=== PATIENT | female | born 1990 | race Caucasian/White ===

== ENCOUNTER 2021-11-20 12:40 | Inpatient (IN) | payer OTHER ==
[2021-11-20] MEDS ORDERED: METHYLERGONOVINE 0.2MG/ML AMP IM PRN (12:43)
[2021-11-20] MEDS ORDERED: CARBOPROST TROME 250 MCG/ML IM PRN (12:43)
[2021-11-20] MEDS ORDERED: Ringers Lactate 1,000 ML IV PRN (12:43)
[2021-11-20] MEDS ORDERED: FAMOTIDINE 20 MG/2 ML VIAL IV ONE ×2 (12:46→12:52)
--- OUTSIDE RECORDS SUMMARY | 2021-11-20 12:47 | XMS REPORT | Continuity of Care Document ---
:1990 Author Organization [facility] t Address [address] [place] [address] Care Team Providers Name Role Phone Sorin Attending Clinician Unavailable White_M Attending Clinician Unavailable Rutledge_L Attending Clinician Unavailable Alfredo_Mariangel Admitting Clinician Unavailable White_M Admitting Clinician Unavailable Rutledge_L Admitting Clinician Unavailable Payers Payer Name Policy Type Policy Number Effective Date Expiration Date [facility] [id number] CHOICE (MEDICAID REPLACEMENT - [place] - [id number] TMHP - TRADITIONAL Problems Condition Condition Condition Status Onset Resolution Last Treating Co mments Source Name Details Category Date Date Treatment Clinician Date Gastroesop Gastroesop Problem Active M [facility] hageal hageal 2-03 da reflux Reflux 00:00: Medical disease Disease 00 Group without without esophagiti Esophagiti s s 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 Social History Smoking Status Start Date Stop Date Source Heavy Tobacco Smoker [facility] Medications Ordered Filled Start Stop Current Ordering Indication Dosage Frequency Signature Comments Components Source Medication Medication Date Date Medication? Clinician (SIG) Name Name ferrous ferrous No 1 Q1D ferrous [place] [facility] gluconate gluconate gluconate da 240 mg (27 240 mg (27 240 mg (27 Medical mg iron) mg iron) mg iron) James up tablet Take tablet Take tablet 1 tablet 1 tablet Take 1 every day every day tablet by oral by oral every day route. route. by oral route. metoclopram metoclopram No metoclopra [place] josiane 10 mg josiane 10 mg mide 10 mg da tablet TAKE tablet TAKE tablet Medical 1 TABLET BY 1 TABLET BY TAKE 1 Group MOUTH THREE MOUTH THREE TABLET BY TIMES DAILY TIMES DAILY MOUTH THREE TIMES DAILY omeprazole omeprazole No omeprazole [place] 40 mg 40 mg 40 mg da capsule,del capsule,del capsule,de Medical ayed ayed layed Group release release release TAKE 1 TAKE 1 TAKE 1 CAPSULE BY CAPSULE BY CAPSULE BY MOUTH EVERY MOUTH EVERY MOUTH DAY DAY EVERY DAY Vitafol Vitafol No Vitafol [place] [facility] Ultra 29 mg Ultra 29 mg Ultra 29 da iron-1 iron-1 mg iron-1 Medica l mg-200 mg mg-200 mg mg-200 mg Group capsule capsule capsule Take 1 Take 1 Take 1 capsule capsule capsule every day every day every day by oral by oral by oral route. route. route. Vitafol-One Vitafol-One No Vitafol-On [place] 29 mg 29 mg e 29 mg da iron-1 iron-1 iron-1 Medical mg-200 mg mg-200 mg mg-200 mg Group capsule capsule capsule Take 1 Take 1 Take 1 capsule capsule capsule every day every day every day by oral by oral by oral route. route. route. Vital Signs Vital Name Observation Time Observation Value Comments Source BP Diastolic 2021-11-18 00:00:00 79 [facility] Height 2021-11-18 00:00:00 64 [in_i] [facility] BMI (Body Mass 2021-11-18 00:00:00 22.7 kg/m2 [facility] Medical Index) Group BP Systolic 2021-11-18 00:00:00 127 mm[Hg] [facility] Body Weight 2021-11-18 00:00:00 132.5 [lb_av] [facility] BP Diastolic 2021-11-11 00:00:00 69 mm[Hg] [facility] Height 2021-11-11 00:00:00 64 [in_i] [facility] BMI (Body Mass 2021-11-11 00:00:00 23.3 kg/m2 [facility] Medical Index) Group BP Systolic 2021-11-11 00:00:00 103 mm[Hg] [facility] Body Weight 2021-11-11 00:00:00 135.6 [lb_av] [facility] BP Diastolic 2021-11-04 00:00:00 71 mm[Hg] [facility] Height 2021-11-04 00:00:00 64 [in_i] [facility] BMI (Body Mass 2021-11-04 00:00:00 23.3 kg/m2 [facility] Medical Index) Group BP Systolic 2021-11-04 00:00:00 108 mm[Hg] [facility] Body Weight 2021-11-04 00:00:00 135.7 [lb_av] [facility] BP Diastolic 2021-10-27 00:00:00 68 mm[Hg] [facility] Height 2021-10-27 00:00:00 64 [in_i] [facility] BMI (Body Mass 2021-10-27 00:00:00 23.7 kg/m2 [facility] Medical Index) Group BP Systolic 2021-10-27 00:00:00 111 mm[Hg] [facility] Body Weight 2021-10-27 00:00:00 138 [lb_av] [facility] BP Diastolic 2021-10-07 00:00:00 70 mm[Hg] [facility] Height 2021-10-07 00:00:00 64 [in_i] [facility] BMI (Body Mass 2021-10-07 00:00:00 22.7 kg/m2 [facility] Medical Index) Group BP Systolic 2021-10-07 00:00:00 116 mm[Hg] [facility] Body Weight 2021-10-07 00:00:00 132 [lb_av] [facility] BP Diastolic 2021-09-10 00:00:00 68 mm[Hg] [facility] Height 2021-09-10 00:00:00 64 [in_i] [facility] BMI (Body Mass 2021-09-10 00:00:00 22.3 kg/m2 [facility] Index) Group BP Systolic 2021-09-10 00:00:00 108 mm[Hg] [facility] Body Weight 2021-09-10 00:00:00 130 [lb_av] [facility] BP Diastolic 2021-08-03 00:00:00 58 mm[Hg] [facility] Height 2021-08-03 00:00:00 64 [in_i] [facility] BMI (Body Mass 2021-08-03 00:00:00 22.1 kg/m2 [facility] Index) Group BP Systolic 2021-08-03 00:00:00 92 mm[Hg] [facility] Body Weight 2021-08-03 00:00:00 129 [lb_av] [facility] BP Diastolic 2021-07-06 00:00:00 66 mm[Hg] [facility] Height 2021-07-06 00:00:00 64 [in_i] [facility] BMI (Body Mass 2021-07-06 00:00:00 21.9 kg/m2 [facility] Index) Group BP Systolic 2021-07-06 00:00:00 110 mm[Hg] [facility] Body Weight 2021-07-06 00:00:00 127.8 [lb_av] [facility] BP Diastolic 2021-06-22 00:00:00 64 mm[Hg] [facility] Height 2021-06-22 00:00:00 64 [in_i] [facility] BMI (Body Mass 2021-06-22 00:00:00 21.9 kg/m2 [facility] Index) Group BP Systolic 2021-06-22 00:00:00 116 mm[Hg] [facility] Body Weight 2021-06-22 00:00:00 127.7 [lb_av] [facility] BP Diastolic 2020-08-25 00:00:00 92 mm[Hg] [facility] Height 2020-08-25 00:00:00 64 [in_i] [facility] BMI (Body Mass 2020-08-25 00:00:00 24.7 kg/m2 [facility] [employer] [facility] Index) Group BP Systolic 2020-08-25 00:00:00 146 mm[Hg] [facility] Body Weight 2020-08-25 00:00:00 144 [lb_av] [facility] BP Diastolic 2020-08-18 00:00:00 86 mm[Hg] [facility] Height 2020-08-18 00:00:00 64 [in_i] [facility] BMI (Body Mass 2020-08-18 00:00:00 24.6 kg/m2 [facility] [employer] [facility] Index) Group BP Systolic 2020-08-18 00:00:00 121 mm[Hg] [facility] Body Weight 2020-08-18 00:00:00 143.6 [lb_av] [facility] BP Diastolic 2020-08-11 00:00:00 70 mm[Hg] [facility] Height 2020-08-11 00:00:00 64 [in_i] [facility] BMI (Body Mass 2020-08-11 00:00:00 25.3 kg/m2 [facility] [employer] [facility] Index) Group BP Systolic 2020-08-11 00:00:00 118 mm[Hg] [facility] Body Weight 2020-08-11 00:00:00 147.6 [lb_av] [facility] BP Diastolic 2020-08-04 00:00:00 81 mm[Hg] [facility] Height 2020-08-04 00:00:00 64 [in_i] [facility] BMI (Body Mass 2020-08-04 00:00:00 25.4 [facility] BP Systolic 2020-08-04 00:00:00 135 mm[Hg] [facility] Body Weight 2020-08-04 00:00:00 148 [lb_av] [facility] BP Diastolic 2020-07-28 00:00:00 69 mm[Hg] [facility] Height 2020-07-28 00:00:00 64 [in_i] [facility] BMI (Body Mass 2020-07-28 00:00:00 25.2 kg/m2 [facility] [employer] Medical Index) Group BP Systolic 2020-07-28 00:00:00 123 mm[Hg] [facility] Body Weight 2020-07-28 00:00:00 146.6 [lb_av] [facility] Height 2020-07-15 00:00:00 64 [in_i] [facility] BMI (Body Mass 2020-07-15 00:00:00 25.2 kg/m2 [facility] [employer] Medical Index) Group Body Weight 2020-07-15 00:00:00 146.6 [lb_av] [facility] BP Diastolic 2020-06-29 00:00:00 74 mm[Hg] [facility] Height 2020-06-29 00:00:00 64 [in_i] [facility] BMI (Body Mass 2020-06-29 00:00:00 24.5 kg/m2 [facility] [employer] [facility] Index) Group BP Systolic 2020-06-29 00:00:00 134 mm[Hg] [facility] Body Weight 2020-06-29 00:00:00 142.9 [lb_av] [facility] Height 2020-05-27 00:00:00 64 [in_i] [facility] BMI (Body Mass 2020-05-27 00:00:00 23.9 kg/m2 [facility] [employer] [facility] Index) Group Body Weight 2020-05-27 00:00:00 139.4 [lb_av] [facility] BP Diastolic 2020-05-25 00:00:00 66 mm[Hg] [facility] Height 2020-05-25 00:00:00 64 [in_i] [facility] BMI (Body Mass 2020-05-25 00:00:00 24.2 kg/m2 [facility] [employer] Medical Index) Group BP Systolic 2020-05-25 00:00:00 118 mm[Hg] [facility] Body Weight 2020-05-25 00:00:00 140.9 [lb_av] [facility] BP Diastolic 2020-05-08 00:00:00 58 mm[Hg] [facility] Height 2020-05-08 00:00:00 64 [in_i] [facility] BMI (Body Mass 2020-05-08 00:00:00 23 kg/m2 [facility] wrapper [employer] Medical Index) Group BP Systolic 2020-05-08 00:00:00 116 mm[Hg] [facility] Body Weight 2020-05-08 00:00:00 134 [lb_av] [facility] BP Diastolic 2020-04-24 00:00:00 63 mm[Hg] [facility] Height 2020-04-24 00:00:00 64 [in_i] [facility] BMI (Body Mass 2020-04-24 00:00:00 22.8 kg/m2 [facility] wrapper [employer] Medical Index) Group BP Systolic 2020-04-24 00:00:00 122 mm[Hg] [facility] Body Weight 2020-04-24 00:00:00 132.8 [lb_av] [facility] Procedures Procedure Date / Time Performing Clinician Source Performed US, obstetric, limited 2021-10-27 00:00:00 [facility] ord Medical [facility] US, obstetric, limited 2021-10-07 00:00:00 [facility] ord Medical [facility] ULTRASOUND REPEAT 2021-09-10 00:00:00 [facility] US, obstetric, limited 2021-08-03 00:00:00 [facility] ULTRASOUND, 2021-07-06 00:00:00 [facility] UTERUS REAL TIME WITH Group IMAGE DOC, AND MATERNAL EVAL PLUS DETAILED ANATOMIC EXAMINATION, TRANSABDOMINAL APPROACH; SINGLE OR FIRST GESTATION US, obstetric, limited 2021-06-22 00:00:00 [facility] ord Medical Group US, obstetric, limited 2020-07-28 00:00:00 [facility] Medical [facility] US, obstetric, limited 2020-06-29 00:00:00 [facility] ULTRASOUND REPEAT 2020-05-25 00:00:00 [facility] ULTRASOUND, 2020-04-24 00:00:00 [facility] UTERUS REAL TIME WITH Group IMAGE DOC, AND MATERNAL EVAL PLUS DETAILED ANATOMIC EXAMINATION, TRANSABDOMINAL APPROACH; SINGLE OR FIRST GESTATION Plan of Care Planned Activity Planned Date Details Comments Source Diagnostic Test 2021-11-18 urinalysis, [facility] dical Pending 00:00:00 dipstick [code = Group urinalysis, dipstick] Future Appointment 2021-11-25 [facility] 10:30:[address] [place] [address] [address]; , [place] [address] Future Appointment 2021-11-25 [facility] 10:30:[address] [address]; , [place] [address] Encounters Start End Encounter Admission Attending Care Care Encounter Source Date/Time Date/Time Type Type Clinicians Facility Department ID 2021-11-18 2021-11-18 Outpatient G_Pappas MM[facility] MMG [id number] [place] 11:48:00 11:48:00 0317 [facility] 2021-11-18 2021-11-18 Miguel A GHOSH [place] - [id number] [facility] 00:00:00 00:00:00 Discovery malia Dsouza MD: [address] [place] [phone] , Ph. [phone] 2021-11-11 2021-11-11 Outpatient G_Pappas MM MM [id number] [place] 10:29:00 10:29:00 0310 [facility] 2021-11-11 2021-11-11 Miguel A GHOSH [place] - [id number] [facility] 00:00:00 00:00:00 Discovery malia Dsouza MD: [address] [place] [address] , Ph. [phone] 2021-11-04 2021-11-04 Outpatient G_Pappas MMG MM [id number] [place] 09:57:00 09:57:00 0303 [facility] 2021-11-04 2021-11-04 Miguel A GHOSH [place] - [id number] [facility] 00:00:00 00:00:00 Discovery malia Dsouza MD: [address] [place] [address] , Ph. [phone] 2021-10-27 2021-10-27 Outpatient G_Pappas MMG MM [id number] [place] 11:35:00 11:35:00 0223 [facility] 2021-10-27 2021-10-27 Kelly MM [place] - [id number] [facility] 00:00:00 00:00:00 Discovery malia Tee [facility]-: [address] [address] , Ph. [phone] 2021-10-07 2021-10-07 Outpatient G_Pappas MMG MM [id number] [place] 02:42:00 02:42:00 [facility] 2021-10-07 2021-10-07 Miguel A WHITING [place] - [id number] [facility] 00:00:00 00:00:00 Discovery malia Dsouza MD: [address] [place] [address] , Ph. [phone] 2021-09-10 2021-09-10 Outpatient G_Pappas MM MM [id number] [place] 09:34:00 09:34:00 0107 Medical Group 2021-09-10 2021-09-10 Miguel A WHITING [place] - [id number] [facility] 00:00:00 00:00:00 Discovery malia Dsouza MD: [address] [place] [address] , Ph. [phone] 2021-09-02 2021-09-02 [place] [id number] [place] 09:30:00 09:30:00 1230 [facility] 2021-08-04 2021-08-04 Outpatient G_Pappas MMG MMG [id number] [place] 12:01:00 12:01:00 1229 [facility] 2021-08-03 2021-08-03 Outpatient G_Pappas MMG MMG [id number] [place] 10:38:00 10:38:00 1130 [facility] 2021-08-03 2021-08-03 Miguel A MMG [place] - [id number] [facility] 00:00:00 00:00:00 Discovery malia Dsouza MD: [address] [address] , Ph. [phone] 2021-07-06 2021-07-06 Outpatient G_Pappas MMG MM [id number] [place] 04:16:00 04:16:00 1102 [facility] 2021-07-06 2021-07-06 Miguel A MMG [place] - [id number] [facility] 00:00:00 00:00:00 Discovery malia Dsouza MD: [address] [address] , Ph. [phone] 2021-06-22 2021-06-22 Outpatient White_M [place] MM [id number] [place] 03:19:00 03:19:00 1019 [facility] 2021-06-22 2021-06-22 Kelly MM [place] - [id number] [facility] 00:00:00 00:00:00 Discovery malia Tee [facility]-: [address] [address] , Ph. [phone] 2021-06-16 2021-06-16 Outpatient G_Pappas MMG MM [id number] [place] 03:35:00 03:35:00 1013 Medical Group 2020-09-07 2020-09-07 Outpatient G_Pappas MMG MMG [id number] [place] 03:17:00 03:17:00 0924 [facility] 2020-08-25 2020-08-25 Outpatient G_Pappas MMG MMG [id number] [place] 02:56:00 02:56:00 1222 [facility] 2020-08-25 2020-08-25 Outpatient G_Pappas MMG MMG [id number] [place] 02:56:00 02:56:00 1230 Medical Group 2020-08-25 2020-08-25 Miguel A GHOSH [place] - [id number] [facility] 00:00:00 00:00:00 Discovery malia Dsouza MD: [address] [place] [phone] , Ph. [phone] 2020-08-18 2020-08-18 Outpatient G_Pappas MMG MMG [id number] [place] 03:25:00 03:25:00 1215 [facility] 2020-08-18 2020-08-18 Outpatient G_Pappas MMG MMG [id number] [place] 03:25:00 03:25:00 1216 [facility] 2020-08-18 2020-08-18 Miguel A GHOSH [place] - [id number] [facility] 00:00:00 00:00:00 Discovery malia Dsouza MD: [address] [place] [address] , Ph. [phone] 2020-08-11 2020-08-11 Outpatient G_Pappas MMG MMG [id number] [place] 02:39:00 02:39:00 1208 [facility] 2020-08-11 2020-08-11 Outpatient G_Pappas MMG MMG [id number] [place] 02:39:00 02:39:00 1209 [facility] 2020-08-11 2020-08-11 Miguel A GHOSH [place] - [id number] [facility] 00:00:00 00:00:00 Discovery malia Dsouza MD: [address] [place] [address] , Ph. [phone] 2020-08-04 2020-08-04 Outpatient G_Pappas MMG MMG [id number] [place] 02:29:00 02:29:00 1201 [facility] 2020-08-04 2020-08-04 Outpatient G_Pappas MMG MMG [id number] [place] 02:29:00 02:29:00 1203 [facility] 2020-08-04 2020-08-04 Outpatient G_Pappas MMG MMG [id number] [place] 02:29:00 02:29:00 1207 [facility] 2020-08-04 2020-08-04 Miguel A MMG [place] - [id number] [facility] 00:00:00 00:00:00 Discovery malia Dsouza MD: [address] [address] , Ph. [phone] 2020-07-28 2020-07-28 Outpatient G_Pappas MMG MMG [id number] [place] 04:06:00 04:06:00 1124 [facility] 2020-07-28 2020-07-28 Miguel A MMG [place] - [id number] [facility] 00:00:00 00:00:00 Discovery malia Dsouza MD: [address] [address] , Ph. [phone] 2020-07-22 2020-07-22 Outpatient Rutledge_L MMG MMG [id number] [place] 02:26:00 02:26:00 1118 [facility] 2020-07-15 2020-07-15 Outpatient Rutledge_L MMG MMG [id number] [place] 05:02:00 05:02:00 1111 [facility] 2020-07-15 2020-07-15 Rhonda MMG [place] - [id number] [facility] 00:00:00 00:00:00 Juan Ramon [facility] ANDREW: [address] [place] [address] , Ph. [phone] 2020-06-30 2020-06-30 Outpatient Rutledge_L MMG MMG [id number] [place] 01:33:00 01:33:00 1110 [facility] 2020-06-29 2020-06-29 Outpatient Rutledge_L MMG MMG [id number] [place] 02:17:00 02:17:00 1026 [facility] 2020-06-29 2020-06-29 Outpatient Rutledge_L MMG MMG [id number] [place] 02:17:00 02:17:00 [facility] 2020-06-29 2020-06-29 Rhonda MM [place] - [id number] [facility] 00:00:00 00:00:00 Juan [facility]on [facility] MD: [address] [place] [address] , Ph. [phone] 2020-06-26 2020-06-26 Outpatient G_Pappas MMG MM [id number] [place] 03:40:00 03:40:00 1023 [facility] 2020-05-27 2020-05-27 Outpatient G_Pappas MMG MMG [id number] [place] 03:53:00 03:53:00 0923 [facility] 2020-05-27 2020-05-27 Miguel A MM [place] - [id number] [facility] 00:00:00 00:00:00 Discovery malia Dsouza MD: [address] [place] [address] , Ph. [phone] 2020-05-25 2020-05-25 Outpatient G_Pappas MMG MMG [id number] [place] 09:33:00 09:33:00 0921 [facility] 2020-05-25 2020-05-25 Miguel A WHITING [place] - [id number] [facility] 00:00:00 00:00:00 Discovery malia Dsouza MD: [address] [place] [address] , Ph. [phone] 2020-05-09 2020-05-09 Outpatient G_Pappas MMG MMG [id number] [place] 11:09:00 11:09:00 09 da [facility] 2020-05-08 2020-05-08 Outpatient G_Pappas MMG MMG [id number] [place] 03:38:00 03:38:00 0904 [facility] 2020-05-08 2020-05-08 Miguel A GHOSH [place] - [id number] M [facility] 00:00:00 00:00:00 Discovery malia Dsouza MD: [address] [place] [address], [place] [address] , Ph. [phone] 2020-04-26 2020-04-26 [facility] [id number] [place] 03:18:00 03:18:00 0823 [facility] 2020-04-24 2020-04-24 Outpatient G_Pappas MMG [facility] [id number] [place] 03:37:00 03:37:00 0821 [facility] 2020-04-24 2020-04-24 Miguel A MMG [place] - [id number] [facility] 00:00:00 00:00:00 Discovery malia Dsouza MD: [address] [place] [address] , Ph. [phone] 2020-04-13 2020-04-13 [facility] [id number] [place] 01:38:00 01:38:00 0810 [facility] 2020-04-13 2020-04-13 Outpatient G_Pappas MMG [facility] [id number] [place] 01:38:00 01:38:00 0820 [facility] Results Test Description Test Time Test Comments Results Result Comments Source Urinalysis macro (dipstick) panel - Urine 2021-11-18 11:18:0 0 Test Item Value Reference Range Interpretation Comme nts Leukocytes (test code = Leukocytes) Trace Nitrite (test code = Nitrite) negative Urobilinogen (test code = Urobilinogen) .2 Protein (test code = Protein) Negative pH (test code = pH) 7.0 Blood (test code = Blood) Negative Specific [place] (test code = Specific [place]) 1.010 Ketone (test code = Ketone) Negative Bilirubin (test code = Bilirubin) Negative Glucose (test code = Glucose) Negative Appearance (test code = Appearance) Clear Color (test code = Color) Yellow [facility] RNA [Presence] in Respiratory specimen by JORGITO with probe [id number] 10:24:[id number] Medical GroupUrinalysis macro (dipstick) panel - [id number] 10:01:29 Test Item Value Reference Range Interpretation Comments Leukocytes (test code = Leukocytes) Moderate Nitrite (test code = Nitrite) negative Urobilinogen (test code = .2 Urobilinogen) Protein (test code = Protein) Negative pH (test code = pH) 6.0 Blood (test code = Blood) Negative Specific [place] (test code = 1.010 Specific [place]) Ketone (test code = Ketone) Negative Bilirubin (test code = Bilirubin) Negative Glucose (test code = Glucose) Negative Appearance (test code = Appearance) Clear Color (test code = Color) [facility] - [id number] 10:01:29 Test Item Value Reference Range Interpretation Comments Leukocytes (test code = Leukocytes) Moderate Nitrite (test code = Nitrite) negative Urobilinogen (test code = .2 Urobilinogen) Protein (test code = Protein) Negative pH (test code = pH) 6.0 Blood (test code = Blood) Negative Specific [place] (test code = 1.010 Specific [place]) Ketone (test code = Ketone) Negative Bilirubin (test code = Bilirubin) Negative Glucose (test code = Glucose) Negative Appearance (test code = Appearance) Clear Color (test code = Color) [facility] panel - [id number] 09:16:40 Test Item Value Reference Range Interpretation Comments Leukocytes (test code = Leukocytes) Trace Nitrite (test code = Nitrite) negative Urobilinogen (test code = .2 Urobilinogen) Protein (test code = Protein) Negative pH (test code = pH) 6.5 Blood (test code = Blood) Negative Specific [place] (test code = 1.010 Specific [place]) Ketone (test code = Ketone) Negative Bilirubin (test code = Bilirubin) Negative Glucose (test code = Glucose) Negative Appearance (test code = Appearance) Clear Color (test code = Color) [facility] ([facility]) panel - [id number] 09:16:40 Test Item Value Reference Range Interpretation Comments Leukocytes (test code = Leukocytes) Trace Nitrite (test code = Nitrite) negative Urobilinogen (test code = .2 Urobilinogen) Protein (test code = Protein) Negative pH (test code = pH) 6.5 Blood (test code = Blood) Negative Specific [place] (test code = 1.010 Specific [place]) Ketone (test code = Ketone) Negative Bilirubin (test code = Bilirubin) Negative Glucose (test code = Glucose) Negative Appearance (test code = Appearance) Clear Color (test code = Color) Yellow [facility] Group[facility] (dipstick) panel - [id number] 09:16:40 Test Item Value Reference Range Interpretation Comments Leukocytes (test code = Leukocytes) Trace Nitrite (test code = Nitrite) negative Urobilinogen (test code = .2 Urobilinogen) Protein (test code = Protein) Negative pH (test code = pH) 6.5 Blood (test code = Blood) Negative Specific [place] (test code = 1.010 Specific [place]) Ketone (test code = Ketone) Negative Bilirubin (test code = Bilirubin) Negative Glucose (test code = Glucose) Negative Appearance (test code = Appearance) Clear Color (test code = Color) Yellow [facility] Groupculture, vaginal/rectal, streptococcus group [id number] 00:00:00 Test Item Value Reference Range Interpretation Comments group B strep (test code = group B negative strep) [facility] [facility] Groupculture, vaginal/rectal, streptococcus group [id number] 00:00:00 Test Item Value Reference Range Interpretation Comments group B strep (test code = group B negative strep) [facility]/rectal, streptococcus group [id number] 00:00:00 Test Item Value Reference Range Interpretation Comments group B strep (test code = group B negative strep) [facility] GroupUrinalysis macro (dipstick) panel - [id number] 11:03:10 Test Item Value Reference Range Interpretation Comments Leukocytes (test code = Leukocytes) Trace Nitrite (test code = Nitrite) negative Urobilinogen (test code = .2 Urobilinogen) Protein (test code = Protein) Negative pH (test code = pH) 7.0 Blood (test code = Blood) Negative Specific [place] (test code = 1.020 Specific [place]) Ketone (test code = Ketone) Negative Bilirubin (test code = Bilirubin) Negative Glucose (test code = Glucose) Negative Appearance (test code = Appearance) Clear Color (test code = Color) Yellow [facility] GroupUrinalysis macro (dipstick) panel - [id number] 11:03:10 Test Item Value Reference Range Interpretation Comments Leukocytes (test code = Leukocytes) Trace Nitrite (test code = Nitrite) negative Urobilinogen (test code = .2 Urobilinogen) Protein (test code = Protein) Negative pH (test code = pH) 7.0 Blood (test code = Blood) Negative Specific [place] (test code = 1.020 Specific [place]) Ketone (test code = Ketone) Negative Bilirubin (test code = Bilirubin) Negative Glucose (test code = Glucose) Negative Appearance (test code = Appearance) Clear Color (test code = Color) Yellow [facility] - [id number] 11:03:10 Test Item Value Reference Range Interpretation Comments Leukocytes (test code = Leukocytes) Trace Nitrite (test code = Nitrite) negative Urobilinogen (test code = .2 Urobilinogen) Protein (test code = Protein) Negative pH (test code = pH) 7.0 Blood (test code = Blood) Negative Specific [place] (test code = 1.020 Specific [place]) Ketone (test code = Ketone) Negative Bilirubin (test code = Bilirubin) Negative Glucose (test code = Glucose) Negative Appearance (test code = Appearance) Clear Color (test code = Color) Yellow [facility] panel - [id number] 11:03:10 Test Item Value Reference Range Interpretation Comments Leukocytes (test code = Leukocytes) Trace Nitrite (test code = Nitrite) negative Urobilinogen (test code = .2 Urobilinogen) Protein (test code = Protein) Negative pH (test code = pH) 7.0 Blood (test code = Blood) Negative Specific [place] (test code = 1.020 Specific [place]) Ketone (test code = Ketone) Negative Bilirubin (test code = Bilirubin) Negative Glucose (test code = Glucose) Negative Appearance (test code = Appearance) Clear Color (test code = Color) Yellow [facility] (dipstick) panel - [id number] 14:10:03 Test Item Value Reference Range Interpretation Comments Leukocytes (test code = Leukocytes) Trace Nitrite (test code = Nitrite) negative Urobilinogen (test code = .2 Urobilinogen) Protein (test code = Protein) Negative pH (test code = pH) 6.5 Blood (test code = Blood) Negative Specific [place] (test code = 1.005 Specific [place]) Ketone (test code = Ketone) Negative Bilirubin (test code = Bilirubin) Negative Glucose (test code = Glucose) Negative Appearance (test code = Appearance) Clear Color (test code = Color) Yellow [facility] GroupUrinalysis macro (dipstick) panel - [id number] 14:10:03 Test Item Value Reference Range Interpretation Comments Leukocytes (test code = Leukocytes) Trace Nitrite (test code = Nitrite) negative Urobilinogen (test code = .2 Urobilinogen) Protein (test code = Protein) Negative pH (test code = pH) 6.5 Blood (test code = Blood) Negative Specific [place] (test code = 1.005 Specific [place]) Ketone (test code = Ketone) Negative Bilirubin (test code = Bilirubin) Negative Glucose (test code = Glucose) Negative Appearance (test code = Appearance) Clear Color (test code = Color) Yellow [facility] (dipstick) panel - [id number] 14:10:03 Test Item Value Reference Range Interpretation Comments Leukocytes (test code = Leukocytes) Trace Nitrite (test code = Nitrite) negative Urobilinogen (test code = .2 Urobilinogen) Protein (test code = Protein) Negative pH (test code = pH) 6.5 Blood (test code = Blood) Negative Specific [place] (test code = 1.005 Specific [place]) Ketone (test code = Ketone) Negative Bilirubin (test code = Bilirubin) Negative Glucose (test code = Glucose) Negative Appearance (test code = Appearance) Clear Color (test code = Color) Yellow [facility] GroupGlucose [Mass/volume] in Serum or Plasma --1 hour post dose [id number] 09:43:00 Test Item Value Reference Range Interpretation Comments Results (test code = Results) 119 [facility] GroupGlucose [Mass/volume] in Serum or Plasma --1 hour post dose [id number] 09:43:00 Test Item Value Reference Range Interpretation Comments Results (test code = Results) 119 [facility] GroupUrinalysis macro (dipstick) panel - [id number] 08:43:51 Test Item Value Reference Range Interpretation Comments Leukocytes (test code = Leukocytes) Trace Nitrite (test code = Nitrite) negative Urobilinogen (test code = .2 Urobilinogen) Protein (test code = Protein) Negative pH (test code = pH) 6.5 Blood (test code = Blood) Negative Specific [place] (test code = 1.010 Specific [place]) Ketone (test code = Ketone) Negative Bilirubin (test code = Bilirubin) Negative Glucose (test code = Glucose) Negative Appearance (test code = Appearance) Clear Color (test code = Color) Yellow [facility] (dipstick) panel - [id number] 08:43:51 Test Item Value Reference Range Interpretation Comments Leukocytes (test code = Leukocytes) Trace Nitrite (test code = Nitrite) negative Urobilinogen (test code = .2 Urobilinogen) Protein (test code = Protein) Negative pH (test code = pH) 6.5 Blood (test code = Blood) Negative Specific [place] (test code = 1.010 Specific [place]) Ketone (test code = Ketone) Negative Bilirubin (test code = Bilirubin) Negative Glucose (test code = Glucose) Negative Appearance (test code = Appearance) Clear Color (test code = Color) [facility] - [id number] 08:26:00 Test Item Value Reference Range Interpretation Comments white blood count (test code = 16.0 K/uL 4.0-11.5 white blood count) red blood count (test code = red 3.62 M/uL 3.80-5.20 L blood count) hemoglobin (test code = 11.1 g/dL 10.5-15.7 hemoglobin) hematocrit (test code = 34.5 % 34.0-50.0 hematocrit) MCV [Entitic volume] (test code = 95.3 fL 86-100 52591-3) mean corpuscular hemoglobin (test 30.7 pg 26.2-33.4 code = mean corpuscular hemoglobin) mean corpuscular HGB conc (test 32.2 g/dL 30-34 code = mean corpuscular HGB conc) red cell distribution width (test 13.2 % 12.0-15.5 code = red cell distribution width) platelet count (test code = 269 K/uL 165-450 platelet count) mean platelet volume (test code = 12.1 fL 9.4-12.6 mean platelet volume) Segmented neutrophils/100 65.4 % 44.4-80.1 leukocytes in Blood (test code = 39122-3) Immature granulocytes [#/volume] 0.4 K/uL 0.0-0.03 H in Blood (test code = 93797-9) lymphocyte% (test code = 24.5 % 10.0-50.0 lymphocyte%) mono % (test code = mono %) 5.3 % 3.6-12.0 eos % (test code = eos %) 1.8 % 0.0-5.4 Basophils/100 leukocytes in 0.4 % 0.1-1.2 Unspecified specimen (test code = 95630-9) Band form neutrophils [#/volume] 10.50 K/uL 1.56-6.13 H in Blood (test code = 66335-1) Lymphocytes [#/volume] in 3.9 K/uL 1.18-3.74 H Unspecified specimen by Automated count (test code = 79485-7) mono # (test code = mono #) 0.85 K/uL 0.24-0.86 eos # (test code = eos #) 0.29 K/uL 0.04-0.36 basophil # (test code = basophil 0.06 K/uL 0.01-0.08 #) NRBC% (test code = NRBC%) 0 /100 WBC 0-0.2 NRBC# (test code = NRBC#) 0 K/uL [facility] [Presence] in Serum or Plasma 2021-09-10 08:26:00 Test Item Value Reference Range Interpretation Comments Blood group antibody screen negative [Presence] in Serum or Plasma (test code = 890-4) [facility] Ab [Presence] in [id number] 00:00:00HIV P24 AgHIV-1/2 [facility]Reagin [facility] [Presence] in Serum by RPR 2021-09-10 00:00:00 Test Item Value Reference Range Interpretation Comments Reagin Ab [Presence] in Serum by nonreactive nonreactive RPR (test code = 48518-0) [facility] macro (dipstick) panel - [id number] 10:36:58 Test Item Value Reference Range Interpretation Comments Leukocytes (test code = Leukocytes) Small Nitrite (test code = Nitrite) negative Urobilinogen (test code = .2 Urobilinogen) Protein (test code = Protein) Negative pH (test code = pH) 6.5 Blood (test code = Blood) Negative Specific [place] (test code = 1.005 Specific [place]) Ketone (test code = Ketone) Negative Bilirubin (test code = Bilirubin) Negative Glucose (test code = Glucose) Negative Appearance (test code = Appearance) Clear Color (test code = Color) Yellow [facility]inalysis macro (dipstick) panel - [id number] 15:57:14 Test Item Value Reference Range Interpretation Comments Leukocytes (test code = Leukocytes) Negative Nitrite (test code = Nitrite) negative Urobilinogen (test code = .2 Urobilinogen) Protein (test code = Protein) Negative pH (test code = pH) 7.0 Blood (test code = Blood) Negative Specific [place] (test code = 1.010 Specific [place]) Ketone (test code = Ketone) Negative Bilirubin (test code = Bilirubin) Negative Glucose (test code = Glucose) Negative Appearance (test code = Appearance) Clear Color (test code = Color) Yellow [facility] macro (dipstick) panel - [id number] 15:57:14 Test Item Value Reference Range Interpretation Comments Leukocytes (test code = Leukocytes) Negative Nitrite (test code = Nitrite) negative Urobilinogen (test code = .2 Urobilinogen) Protein (test code = Protein) Negative pH (test code = pH) 7.0 Blood (test code = Blood) Negative Specific [place] (test code = 1.010 Specific [place]) Ketone (test code = Ketone) Negative Bilirubin (test code = Bilirubin) Negative Glucose (test code = Glucose) Negative Appearance (test code = Appearance) Clear Color (test code = Color) Yellow [facility], LB + [id number] 00:00:00 Test Item Value Reference Range Interpretation Comments HPV type-detect 4.0 by real time not detected PCR high risk subtypes only (test code = HPV type-detect 4.0 by real time PCR high risk subtypes only) liquid Pap test (test code = normal liquid Pap test) [facility] + NG + TV, DNA, urine/[id number] 00:00:00 Test Item Value Reference Range Interpretation Comments chlamydia trachomatis by real-time negative PCR (reflex to azithromycin resistance by pyrosequencing) (test code = chlamydia trachomatis by real-time PCR (reflex to azithromycin resistance by pyrosequencing)) trichomonas vaginalis by real-time negative PCR (reflex to metronidazole resistance) (test code = trichomonas vaginalis by real-time PCR (reflex to metronidazole resistance)) neisseria gonorrhoeae by real-time negative PCR (reflex to antibiotic resistance by molecular analysis) (test code = neisseria gonorrhoeae by real-time PCR (reflex to antibiotic resistance by molecular analysis)) [facility] W Auto Differential panel - [id number] 11:56:00 Test Item Value Reference Range Interpretation Comments white blood count (test code = 12.1 K/uL 4.0-11.5 H white blood count) red blood count (test code = red 3.84 M/uL 3.80-5.20 blood count) hemoglobin (test code = 11.2 g/dL 10.5-15.7 hemoglobin) hematocrit (test code = 33.8 % 34.0-50.0 L hematocrit) MCV [Entitic volume] (test code = 88.0 fL 86-100 04053-2) mean corpuscular hemoglobin (test 29.2 pg 26.2-33.4 code = mean corpuscular hemoglobin) mean corpuscular HGB conc (test 33.1 g/dL 30-34 code = mean corpuscular HGB conc) red cell distribution width (test 12.8 % 12.0-15.5 code = red cell distribution width) platelet count (test code = 259 K/uL 165-450 platelet count) mean platelet volume (test code = 11.8 fL 9.4-12.6 mean platelet volume) Segmented neutrophils/100 75.8 % 44.4-80.1 leukocytes in Blood (test code = 97046-7) Immature granulocytes [#/volume] 0.2 K/uL 0.0-0.03 H in Blood (test code = 94612-9) lymphocyte% (test code = 17.5 % 10.0-50.0 lymphocyte%) mono % (test code = mono %) 3.8 % 3.6-12.0 eos % (test code = eos %) 1.5 % 0.0-5.4 Basophils/100 leukocytes in 0.2 % 0.1-1.2 Unspecified specimen (test code = 43634-6) Band form neutrophils [#/volume] 9.15 K/uL 1.56-6.13 H in Blood (test code = 76365-8) Lymphocytes [#/volume] in 2.1 K/uL 1.18-3.74 Unspecified specimen by Automated count (test code = 13669-3) mono # (test code = mono #) 0.46 K/uL 0.24-0.86 eos # (test code = eos #) 0.18 K/uL 0.04-0.36 basophil # (test code = basophil 0.03 K/uL 0.01-0.08 #) NRBC% (test code = NRBC%) 0 /100 WBC 0-0.2 NRBC# (test code = NRBC#) 0 K/uL [facility] GroupThyrotropin [Units/volume] in Serum or [id number] 11:56:00 Test Item Value Reference Range Interpretation Comments Thyrotropin [Units/volume] in Serum or <0.01 0.36-3.74 L Plasma (test code = 3016-3) [facility] GroupABO & Rh group [Type] in [id number] 11:56:00 Test Item Value Reference Range Interpretation Comments Rh [Type] in Blood (test code = 4+ 08992-5) ABO and Rh group panel - Blood B positive (test code = 89964-5) [facility] [Presence] in Serum or Plasma 2021-06-23 11:56:00 Test Item Value Reference Range Interpretation Comments Blood group antibody screen negative [Presence] in Serum or Plasma (test code = 890-4) [facility] GroupDifferential panel, method unspecified - [id number] 00:00:00NeutrophilsBandLymphocyteAtypical LymphMonocyteEosinophilBasophilMetamyelocyteMyelocyteBlastsNucleated Red Blood CellDifferential CommentAbs Neutrophil Count (Man)Abs Lymph Count (Man)Abs Monocyte Count (Man)Abs Eosinophil Count (Man)Abs Basophil Count (Man)Platelet EstimatePlatelet MorphologyPolychrom asiaHypochromasiaPoikilocytosisAnisocytosisMicrocytosisMacrocytosisSpherocyteSch istocytesOvalocytesToxic GranulationBurr CellsAcanthocytesHypersegmented PolysRouleauToxic VacuolationSmudge CellsUmmc Holmes CountyThyroxine (T4) free [Mass/volume] in Serum or [id number] 00:00:00 Test Item Value Reference Range Interpretation Comments free T4 (test code = free T4) 0.93 NG/dL 0.93-1.7 [facility] [Presence] in [id number] 00:00:00HIV P24 AgHIV-1/2 AbUmmc Holmes CountyHepatitis B virus surface Ag [Presence] in [id number] 00:00:00 Test Item Value Reference Range Interpretation Comments .hepatitis B surface antigen (test negative negative code = .hepatitis B surface antigen) [facility] Ab [Presence] in Serum by [id number] 00:00:00 Test Item Value Reference Range Interpretation Comments Reagin Ab [Presence] in Serum by nonreactive nonreactive RPR (test code = 33490-0) [facility] Countylafpmat2021-10-20 00:00:00 Test Item Value Reference Range Interpretation Comments .AFP,osb results report See_Comment [Automated (test code = message] The .AFP,osb results) system [facility] generated this result transmit sulema reference range : .. The referenc e range was not u sed to interpret th is result as normal/abnormal . .AFP, test results *screen negative* See_Comment [Au tomated (test code = .AFP, message] The test results) system which generated this result transmit sulema reference range : .. The referenc e range was not u sed to interpret th is result as normal/abnormal . Gestational age ultrasound weeks See_Comment [Automa sulema (test code = message] The 43930-1) system which generated this result transmit sulema reference range : .. The referenc e range was not u sed to interpret th is result as normal/abnormal . [age] See_Comment [Automated (test code = message] The 69765-0) system which generated this result transmit sulema reference range : .. The referenc e range was not u sed to interpret th is result as normal/abnormal . Race (test code = See_Comment [Automate d 16081-7) message] The system which generated this result transmit sulema reference range : .. The referenc e range was not u sed to interpret th is result as normal/abnormal . Mother's body 127 [lb av] See_Comment [Automated weight --at message] The delivery (test code system [facility] = 34078-8) generated this result transmit sulema reference range : .. The referenc e range was not u sed to interpret th is result as normal/abnormal . Insulin dependent no See_Comment [Automate d diabetes mellitus message] T he [Presence] (test system [facility] h code = 18893-5) generated th is result transmit sulema reference range : .. The referenc e range was not u sed to interpret th is result as normal/abnormal . Multiple See_Comment [Automat ed (test code = message] The 29189-2) system which generated this result transmit sulema reference range : .. The referenc e range was not u sed to interpret th is result as normal/abnormal . .AFP value (test 51.0 NG/mL See_Comment [Automated code = .AFP value) message] The system which generated this result transmit sulema reference range : .. The referenc e range was not u sed to interpret th is result as normal/abnormal . Csmxa-9-Moyzsdglcxk 1.02 See_Comment [Automa sulema [Multiple of the message] Th e median] in Serum or system [facility] Plasma (test code = generate d this 81875-6) result transmit sulema reference range : .. The referenc e range was not u sed to interpret th is result as normal/abnormal . Neural tube defect 64801 See_Comment [Automat ed risk [Likelihood] message] T he in Fetus (test code system [facility] = 80039-3) generated this result transmit sulema reference range : .. The referenc e range was not u sed to interpret th is result as normal/abnormal . .AFP interp (test See_Comment [Automate d code = .AFP interp) message] The system which generated this result transmit sulema reference range : .. The referenc e range was not u sed to interpret th is result as normal/abnormal . .AFP comment (test See_Comment [Automat ed code = .AFP message] The comment) system which generated this result transmit sulema reference range : .. The referenc e range was not u sed to interpret th is result as normal/abnormal . [facility] GroupUrinalysis macro (dipstick) panel - [id number] 14:48:21 Test Item Value Reference Range Interpretation Comments Leukocytes (test code = Leukocytes) Negative Nitrite (test code = Nitrite) negative Urobilinogen (test code = 1 Urobilinogen) Protein (test code = Protein) Negative pH (test code = pH) 7.0 Blood (test code = Blood) Negative Specific [place] (test code = 1.025 Specific [place]) Ketone (test code = Ketone) Negative Bilirubin (test code = Bilirubin) Negative Glucose (test code = Glucose) Negative Appearance (test code = Appearance) Clear Color (test code = Color) Yellow [facility] GroupUrinalysis macro (dipstick) panel - [id number] 14:48:21 Test Item Value Reference Range Interpretation Comments Leukocytes (test code = Leukocytes) Negative Nitrite (test code = Nitrite) negative Urobilinogen (test code = 1 Urobilinogen) Protein (test code = Protein) Negative pH (test code = pH) 7.0 Blood (test code = Blood) Negative Specific [place] (test code = 1.025 Specific [place]) Ketone (test code = Ketone) Negative Bilirubin (test code = Bilirubin) Negative Glucose (test code = Glucose) Negative Appearance (test code = Appearance) Clear Color (test code = Color) Yellow [facility] Grouppregnancy test, [id number] 14:47:42 Test Item Value Reference Range Interpretation Comments Test (test code = positive Test) [facility]ouppregnancy test, [id number] 14:47:42 Test Item Value Reference Range Interpretation Comments Test (test code = positive Test) [facility] GroupBacteria identified in Urine by [id number] 02:34:00 Test Item Value Reference Range Interpretation Comments Bacteria identified in no growth at 2 days Urine by Culture (test code = 630-4) [facility] (dipstick) panel - [id number] 14:23:07 Test Item Value Reference Range Interpretation Comments Leukocytes (test code = Leukocytes) Small Nitrite (test code = Nitrite) negative Urobilinogen (test code = .2 Urobilinogen) Protein (test code = Protein) Negative pH (test code = pH) 6.5 Blood (test code = Blood) Negative Specific [place] (test code = 1.020 Specific [place]) Ketone (test code = Ketone) Trace Bilirubin (test code = Bilirubin) Negative Glucose (test code = Glucose) Negative Appearance (test code = Appearance) Clear Color (test code = Color) Yellow [facility]Urinalysis macro (dipstick) panel - [id number] 14:26:14 Test Item Value Reference Range Interpretation Comments Leukocytes (test code = Leukocytes) Small Nitrite (test code = Nitrite) negative Urobilinogen (test code = .2 Urobilinogen) Protein (test code = Protein) Negative pH (test code = pH) 6.0 Blood (test code = Blood) Negative Specific [place] (test code = 1.030 Specific [place]) Ketone (test code = Ketone) Negative Bilirubin (test code = Bilirubin) Negative Glucose (test code = Glucose) Negative Appearance (test code = Appearance) Clear Color (test code = Color) Yellow [facility] macro (dipstick) panel - [id number] 14:26:14 Test Item Value Reference Range Interpretation Comments Leukocytes (test code = Leukocytes) Small Nitrite (test code = Nitrite) negative Urobilinogen (test code = .2 Urobilinogen) Protein (test code = Protein) Negative pH (test code = pH) 6.0 Blood (test code = Blood) Negative Specific [place] (test code = 1.030 Specific [place]) Ketone (test code = Ketone) Negative Bilirubin (test code = Bilirubin) Negative Glucose (test code = Glucose) Negative Appearance (test code = Appearance) Clear Color (test code = Color) Yellow [facility] macro (dipstick) panel - [id number] 14:10:50 Test Item Value Reference Range Interpretation Comments Leukocytes (test code = Leukocytes) Large Nitrite (test code = Nitrite) negative Urobilinogen (test code = .2 Urobilinogen) Protein (test code = Protein) Negative pH (test code = pH) 7.0 Blood (test code = Blood) Negative Specific [place] (test code = 1.020 Specific [place]) Ketone (test code = Ketone) Negative Bilirubin (test code = Bilirubin) Negative Glucose (test code = Glucose) Negative Appearance (test code = Appearance) Clear Color (test code = Color) Yellow [facility]ysis macro (dipstick) panel - [id number] 14:10:50 Test Item Value Reference Range Interpretation Comments Leukocytes (test code = Leukocytes) Large Nitrite (test code = Nitrite) negative Urobilinogen (test code = .2 Urobilinogen) Protein (test code = Protein) Negative pH (test code = pH) 7.0 Blood (test code = Blood) Negative Specific [place] (test code = 1.020 Specific [place]) Ketone (test code = Ketone) Negative Bilirubin (test code = Bilirubin) Negative Glucose (test code = Glucose) Negative Appearance (test code = Appearance) Clear Color (test code = Color) Yellow [facility]inalysis macro (dipstick) panel - [id number] 14:10:50 Test Item Value Reference Range Interpretation Comments Leukocytes (test code = Leukocytes) Large Nitrite (test code = Nitrite) negative Urobilinogen (test code = .2 Urobilinogen) Protein (test code = Protein) Negative pH (test code = pH) 7.0 Blood (test code = Blood) Negative Specific [place] (test code = 1.020 Specific [place]) Ketone (test code = Ketone) Negative Bilirubin (test code = Bilirubin) Negative Glucose (test code = Glucose) Negative Appearance (test code = Appearance) Clear Color (test code = Color) Yellow [facility]inalysis macro (dipstick) panel - [id number] 13:47:29 Test Item Value Reference Range Interpretation Comments Leukocytes (test code = Leukocytes) Small Nitrite (test code = Nitrite) negative Urobilinogen (test code = 1 Urobilinogen) Protein (test code = Protein) Negative pH (test code = pH) 7.0 Blood (test code = Blood) Negative Specific [place] (test code = 1.020 Specific [place]) Ketone (test code = Ketone) Negative Bilirubin (test code = Bilirubin) Negative Glucose (test code = Glucose) Negative Appearance (test code = Appearance) Clear Color (test code = Color) [facility] - [id number] 13:47:29 Test Item Value Reference Range Interpretation Comments Leukocytes (test code = Leukocytes) Small Nitrite (test code = Nitrite) negative Urobilinogen (test code = 1 Urobilinogen) Protein (test code = Protein) Negative pH (test code = pH) 7.0 Blood (test code = Blood) Negative Specific [place] (test code = 1.020 Specific [place]) Ketone (test code = Ketone) Negative Bilirubin (test code = Bilirubin) Negative Glucose (test code = Glucose) Negative Appearance (test code = Appearance) Clear Color (test code = Color) [facility] - [id number] 13:47:29 Test Item Value Reference Range Interpretation Comments Leukocytes (test code = Leukocytes) Small Nitrite (test code = Nitrite) negative Urobilinogen (test code = 1 Urobilinogen) Protein (test code = Protein) Negative pH (test code = pH) 7.0 Blood (test code = Blood) Negative Specific [place] (test code = 1.020 Specific [place]) Ketone (test code = Ketone) Negative Bilirubin (test code = Bilirubin) Negative Glucose (test code = Glucose) Negative Appearance (test code = Appearance) Clear Color (test code = Color) [facility] ([facility] panel - [id number] 13:47:29 Test Item Value Reference Range Interpretation Comments Leukocytes (test code = Leukocytes) Small Nitrite (test code = Nitrite) negative Urobilinogen (test code = 1 Urobilinogen) Protein (test code = Protein) Negative pH (test code = pH) 7.0 Blood (test code = Blood) Negative Specific [place] (test code = 1.020 Specific [place]) Ketone (test code = Ketone) Negative Bilirubin (test code = Bilirubin) Negative Glucose (test code = Glucose) Negative Appearance (test code = Appearance) Clear Color (test code = Color) [facility] ([facility] panel - [id number] 15:34:00 Test Item Value Reference Range Interpretation Comments Leukocytes (test code = Leukocytes) Small Nitrite (test code = Nitrite) negative Urobilinogen (test code = .2 Urobilinogen) Protein (test code = Protein) Negative pH (test code = pH) 7.0 Blood (test code = Blood) Negative Specific [place] (test code = 1.015 Specific [place]) Ketone (test code = Ketone) Negative Bilirubin (test code = Bilirubin) Negative Glucose (test code = Glucose) Negative Appearance (test code = Appearance) Clear Color (test code = Color) [facility] ([facility]stick[facility] panel - [id number] 15:34:00 Test Item Value Reference Range Interpretation Comments Leukocytes (test code = Leukocytes) Small Nitrite (test code = Nitrite) negative Urobilinogen (test code = .2 Urobilinogen) Protein (test code = Protein) Negative pH (test code = pH) 7.0 Blood (test code = Blood) Negative Specific [place] (test code = 1.015 Specific [place]) Ketone (test code = Ketone) Negative Bilirubin (test code = Bilirubin) Negative Glucose (test code = Glucose) Negative Appearance (test code = Appearance) Clear Color (test code = Color) [facility] ([facility] panel - [id number] 15:34:00 Test Item Value Reference Range Interpretation Comments Leukocytes (test code = Leukocytes) Small Nitrite (test code = Nitrite) negative Urobilinogen (test code = .2 Urobilinogen) Protein (test code = Protein) Negative pH (test code = pH) 7.0 Blood (test code = Blood) Negative Specific [place] (test code = 1.015 Specific [place]) Ketone (test code = Ketone) Negative Bilirubin (test code = Bilirubin) Negative Glucose (test code = Glucose) Negative Appearance (test code = Appearance) Clear Color (test code = Color) [facility] ([facility]stick[facility] panel - [id number] 15:34:00 Test Item Value Reference Range Interpretation Comments Leukocytes (test code = Leukocytes) Small Nitrite (test code = Nitrite) negative Urobilinogen (test code = .2 Urobilinogen) Protein (test code = Protein) Negative pH (test code = pH) 7.0 Blood (test code = Blood) Negative Specific [place] (test code = 1.015 Specific [place]) Ketone (test code = Ketone) Negative Bilirubin (test code = Bilirubin) Negative Glucose (test code = Glucose) Negative Appearance (test code = Appearance) Clear Color (test code = Color) Yellow [facility] Group[facility] ([facility] - [id number] 15:34:00 Test Item Value Reference Range Interpretation Comments Leukocytes (test code = Leukocytes) Small Nitrite (test code = Nitrite) negative Urobilinogen (test code = .2 Urobilinogen) Protein (test code = Protein) Negative pH (test code = pH) 7.0 Blood (test code = Blood) Negative Specific [place] (test code = 1.015 Specific [place]) Ketone (test code = Ketone) Negative Bilirubin (test code = Bilirubin) Negative Glucose (test code = Glucose) Negative Appearance (test code = Appearance) Clear Color (test code = Color) Yellow [facility] GroupStreptococcus agalactiae [Presence] in Unspecified specimen by Organism specific [id number] 00:00:00 Test Item Value Reference Range Interpretation Comments group B streptococcus (gbs) by negative real-time PCR (test code = group B streptococcus (gbs) by real-time PCR) [facility] GroupStreptococcus agalactiae [Presence] in Unspecified specimen by Organism specific [id number] 00:00:00 Test Item Value Reference Range Interpretation Comments group B streptococcus (gbs) by negative real-time PCR (test code = group B streptococcus (gbs) by real-time PCR) [facility] GroupStreptococcus agalactiae [Presence] in Unspecified specimen by Organism specific [id number] 00:00:00 Test Item Value Reference Range Interpretation Comments group B streptococcus (gbs) by negative real-time PCR (test code = group B streptococcus (gbs) by real-time PCR) [facility] GroupChlamydia trachomatis+Neisseria gonorrhoeae DNA [Presence] in Unspecified specimen by JORGITO with [id number] 00:00:00 Test Item Value Reference Range Interpretation Comments chlamydia trachomatis by real-time negative PCR (reflex to azithromycin resistance by pyrosequencing) (test code = chlamydia trachomatis by real-time PCR (reflex to azithromycin resistance by pyrosequencing)) neisseria gonorrhoeae by real-time negative PCR (reflex to antibiotic resistance by molecular analysis) (test code = neisseria gonorrhoeae by real-time PCR (reflex to antibiotic resistance by molecular analysis)) [facility]Neisseria gonorrhoeae DNA [Presence] in Unspecified specimen by JORGITO with [id number] 00:00:00 Test Item Value Reference Range Interpretation Comments chlamydia trachomatis by real-time negative PCR (reflex to azithromycin resistance by pyrosequencing) (test code = chlamydia trachomatis by real-time PCR (reflex to azithromycin resistance by pyrosequencing)) neisseria gonorrhoeae by real-time negative PCR (reflex to antibiotic resistance by molecular analysis) (test code = neisseria gonorrhoeae by real-time PCR (reflex to antibiotic resistance by molecular analysis)) [facility]+Neisseria gonorrhoeae DNA [Presence] in Unspecified specimen by JORGITO with [id number] 00:00:00 Test Item Value Reference Range Interpretation Comments chlamydia trachomatis by real-time negative PCR (reflex to azithromycin resistance by pyrosequencing) (test code = chlamydia trachomatis by real-time PCR (reflex to azithromycin resistance by pyrosequencing)) neisseria gonorrhoeae by real-time negative PCR (reflex to antibiotic resistance by molecular analysis) (test code = neisseria gonorrhoeae by real-time PCR (reflex to antibiotic resistance by molecular analysis)) [facility] panel - [id number] 16:20:00 Test Item Value Reference Range Interpretation Comments Leukocytes (test code = Leukocytes) Trace Nitrite (test code = Nitrite) negative Urobilinogen (test code = .2 Urobilinogen) Protein (test code = Protein) Negative pH (test code = pH) 6.0 Blood (test code = Blood) Negative Specific [place] (test code = 1.015 Specific [place]) Ketone (test code = Ketone) Negative Bilirubin (test code = Bilirubin) Negative Glucose (test code = Glucose) Negative Appearance (test code = Appearance) Clear Color (test code = Color) Yellow [facility] (dipstick) panel - [id number] 16:20:00 Test Item Value Reference Range Interpretation Comments Leukocytes (test code = Leukocytes) Trace Nitrite (test code = Nitrite) negative Urobilinogen (test code = .2 Urobilinogen) Protein (test code = Protein) Negative pH (test code = pH) 6.0 Blood (test code = Blood) Negative Specific [place] (test code = 1.015 Specific [place]) Ketone (test code = Ketone) Negative Bilirubin (test code = Bilirubin) Negative Glucose (test code = Glucose) Negative Appearance (test code = Appearance) Clear Color (test code = Color) Yellow [facility] (dipstick) panel - [id number] 16:20:00 Test Item Value Reference Range Interpretation Comments Leukocytes (test code = Leukocytes) Trace Nitrite (test code = Nitrite) negative Urobilinogen (test code = .2 Urobilinogen) Protein (test code = Protein) Negative pH (test code = pH) 6.0 Blood (test code = Blood) Negative Specific [place] (test code = 1.015 Specific [place]) Ketone (test code = Ketone) Negative Bilirubin (test code = Bilirubin) Negative Glucose (test code = Glucose) Negative Appearance (test code = Appearance) Clear Color (test code = Color) Yellow [facility]Glucose tolerance 3 hours panel - Serum or Plasma 2020-05-27 12:59:00 Test Item Value Reference Range Interpretation Comments Results (test code = Fasting 77, 1 hour Results) 144, 2 hour 125 [facility]Glucose [Mass/volume] in Serum or Plasma --1 hour post dose [id number] 09:54:00 Test Item Value Reference Range Interpretation Comments Results (test code = Results) 142 [facility]Glucose [Mass/volume] in Serum or Plasma --1 hour post dose [id number] 09:54:00 Test Item Value Reference Range Interpretation Comments Results (test code = Results) 142 [facility] CountyCBC W Auto Differential panel - [id number] 08:06:00 Test Item Value Reference Range Interpretation Comments white blood count (test code = 12.3 K/uL 4.0-11.5 H white blood count) red blood count (test code = red 3.31 M/uL 3.80-5.20 L blood count) hemoglobin (test code = 10.2 g/dL 10.5-15.7 L hemoglobin) hematocrit (test code = 31.4 % 34.0-50.0 L hematocrit) MCV [Entitic volume] (test code = 94.9 fL 86-100 63135-0) mean corpuscular hemoglobin (test 30.8 pg 26.2-33.4 code = mean corpuscular hemoglobin) mean corpuscular HGB conc (test 32.5 g/dL 30-34 code = mean corpuscular HGB conc) red cell distribution width (test 12.5 % 12.0-15.5 code = red cell distribution width) platelet count (test code = 224 K/uL 165-450 platelet count) mean platelet volume (test code = 11.2 fL 9.4-12.6 mean platelet volume) Segmented neutrophils/100 69.3 % 44.4-80.1 leukocytes in Blood (test code = 25531-3) Immature granulocytes [#/volume] 0.2 K/uL 0.0-0.03 H in Blood (test code = 85341-3) lymphocyte% (test code = 21.0 % 10.0-50.0 lymphocyte%) mono % (test code = mono %) 6.3 % 3.6-12.0 eos % (test code = eos %) 1.5 % 0.0-5.4 Basophils/100 leukocytes in 0.2 % 0.1-1.2 Unspecified specimen (test code = 40843-1) Band form neutrophils [#/volume] 8.52 K/uL 1.56-6.13 H in Blood (test code = 87797-4) Lymphocytes [#/volume] in 2.6 K/uL 1.18-3.74 Unspecified specimen by Automated count (test code = 32942-9) mono # (test code = mono #) 0.78 K/uL 0.24-0.86 eos # (test code = eos #) 0.18 K/uL 0.04-0.36 basophil # (test code = basophil 0.03 K/uL 0.01-0.08 #) NRBC% (test code = NRBC%) 0 /100 WBC 0-0.2 NRBC# (test code = NRBC#) 0 K/uL [facility] screen [Presence] in Serum or Plasma 2020-05-25 08:06:00 Test Item Value Reference Range Interpretation Comments Blood group antibody screen negative [Presence] in Serum or Plasma (test code = 890-4) [facility] GroupUrinalysis macro (dipstick) panel - [id number] 14:48:00 Test Item Value Reference Range Interpretation Comments Leukocytes (test code = Leukocytes) Trace Nitrite (test code = Nitrite) negative Urobilinogen (test code = .2 Urobilinogen) Protein (test code = Protein) Negative pH (test code = pH) 6.0 Blood (test code = Blood) Negative Specific [place] (test code = 1.025 Specific [place]) Ketone (test code = Ketone) Negative Bilirubin (test code = Bilirubin) Negative Glucose (test code = Glucose) Negative Appearance (test code = Appearance) Clear Color (test code = Color) Yellow [facility]Ur[facility] (dipstick) panel - [id number] 14:48:00 Test Item Value Reference Range Interpretation Comments Leukocytes (test code = Leukocytes) Trace Nitrite (test code = Nitrite) negative Urobilinogen (test code = .2 Urobilinogen) Protein (test code = Protein) Negative pH (test code = pH) 6.0 Blood (test code = Blood) Negative Specific [place] (test code = 1.025 Specific [place]) Ketone (test code = Ketone) Negative Bilirubin (test code = Bilirubin) Negative Glucose (test code = Glucose) Negative Appearance (test code = Appearance) Clear Color (test code = Color) Yellow [facility]Ur[facility]ysis macro (dipstick) panel - [id number] 14:48:00 Test Item Value Reference Range Interpretation Comments Leukocytes (test code = Leukocytes) Trace Nitrite (test code = Nitrite) negative Urobilinogen (test code = .2 Urobilinogen) Protein (test code = Protein) Negative pH (test code = pH) 6.0 Blood (test code = Blood) Negative Specific [place] (test code = 1.025 Specific [place]) Ketone (test code = Ketone) Negative Bilirubin (test code = Bilirubin) Negative Glucose (test code = Glucose) Negative Appearance (test code = Appearance) Clear Color (test code = Color) Yellow [facility], LB + reflex to HR HPV if [id number] 00:00:00 Test Item Value Reference Range Interpretation Comments TP reflex HPV ASCUS (test code = TP normal reflex HPV ASCUS) [facility] Grouppap, LB + reflex to HR HPV if [id number] 00:00:00 Test Item Value Reference Range Interpretation Comments TP reflex HPV ASCUS (test code = TP normal reflex HPV ASCUS) [facility] (dipstick) panel - [id number] 14:47:50 Test Item Value Reference Range Interpretation Comments Leukocytes (test code = Leukocytes) Large Nitrite (test code = Nitrite) negative Urobilinogen (test code = .2 Urobilinogen) Protein (test code = Protein) Negative pH (test code = pH) 7.0 Blood (test code = Blood) Negative Specific [place] (test code = 1.010 Specific [place]) Ketone (test code = Ketone) Negative Bilirubin (test code = Bilirubin) Negative Glucose (test code = Glucose) Negative Appearance (test code = Appearance) Clear Color (test code = Color) Yellow [facility]Ur[facility] (dipstick) panel - [id number] 14:47:50 Test Item Value Reference Range Interpretation Comments Leukocytes (test code = Leukocytes) Large Nitrite (test code = Nitrite) negative Urobilinogen (test code = .2 Urobilinogen) Protein (test code = Protein) Negative pH (test code = pH) 7.0 Blood (test code = Blood) Negative Specific [place] (test code = 1.010 Specific [place]) Ketone (test code = Ketone) Negative Bilirubin (test code = Bilirubin) Negative Glucose (test code = Glucose) Negative Appearance (test code = Appearance) Clear Color (test code = Color) Yellow [facility]Ur[facility]ysis macro (dipstick) panel - [id number] 14:47:50 Test Item Value Reference Range Interpretation Comments Leukocytes (test code = Leukocytes) Large Nitrite (test code = Nitrite) negative Urobilinogen (test code = .2 Urobilinogen) Protein (test code = Protein) Negative pH (test code = pH) 7.0 Blood (test code = Blood) Negative Specific [place] (test code = 1.010 Specific [place]) Ketone (test code = Ketone) Negative Bilirubin (test code = Bilirubin) Negative Glucose (test code = Glucose) Negative Appearance (test code = Appearance) Clear Color (test code = Color) Yellow [facility] CountyCB W Auto Differential panel - [id number] 01:48:00 Test Item Value Reference Range Interpretation Comments white blood count (test code = 12.0 K/uL 4.0-11.5 H white blood count) red blood count (test code = red 3.37 M/uL 3.80-5.20 L blood count) hemoglobin (test code = 10.5 g/dL 10.5-15.7 hemoglobin) hematocrit (test code = 31.6 % 34.0-50.0 L hematocrit) MCV [Entitic volume] (test code = 93.8 fL 86-100 76290-3) mean corpuscular hemoglobin (test 31.2 pg 26.2-33.4 code = mean corpuscular hemoglobin) mean corpuscular HGB conc (test 33.2 g/dL 30-34 code = mean corpuscular HGB conc) red cell distribution width (test 13.0 % 12.0-15.5 code = red cell distribution width) platelet count (test code = 244 K/uL 165-450 platelet count) mean platelet volume (test code = 12.0 fL 9.4-12.6 mean platelet volume) Segmented neutrophils/100 76.1 % 44.4-80.1 leukocytes in Blood (test code = 57043-0) Immature granulocytes [#/volume] 0.1 K/uL 0.0-0.03 H in Blood (test code = 62727-8) lymphocyte% (test code = 16.6 % 10.0-50.0 lymphocyte%) mono % (test code = mono %) 4.8 % 3.6-12.0 eos % (test code = eos %) 1.1 % 0.0-5.4 Basophils/100 leukocytes in 0.3 % 0.1-1.2 Unspecified specimen (test code = 93266-4) Band form neutrophils [#/volume] 9.11 K/uL 1.56-6.13 H in Blood (test code = 65899-0) Lymphocytes [#/volume] in 2.0 K/uL 1.18-3.74 Unspecified specimen by Automated count (test code = 67992-9) mono # (test code = mono #) 0.57 K/uL 0.24-0.86 eos # (test code = eos #) 0.13 K/uL 0.04-0.36 basophil # (test code = basophil 0.04 K/uL 0.01-0.08 #) NRBC% (test code = NRBC%) 0 /100 WBC 0-0.2 NRBC# (test code = NRBC#) 0 K/uL [facility] GroupChlamydia trachomatis+Neisseria gonorrhoeae rRNA [Presence] in Unspecified specimen by [id number] 01:48:00 Test Item Value Reference Range Interpretation Comments Chlamydia sp Ag [Presence] in CT not detected Unspecified specimen (test code = 86310-1) [id number] (test code = ilb5291) NG not detected [facility] GroupAB[facility] Rh group [Type] in [id number] 01:48:00 Test Item Value Reference Range Interpretation Comments Rh [Type] in Blood (test code = 4+ 58711-0) ABO and Rh group panel - Blood B positive (test code = 89462-8) [facility] GroupBlood [facility] antibody screen [Presence] in Serum or Plasma 2020-04-24 01:48:00 Test Item Value Reference Range Interpretation Comments Blood group antibody screen negative [Presence] in Serum or Plasma (test code = 890-4) [facility] GroupHepatitis B virus surface Ag [Presence] in Serum 2020-04-24 01:48:00 Test Item Value Reference Range Interpretation Comments .hepatitis B surface antigen (test negative negative code = .hepatitis B surface antigen) [facility] GroupBacteria identified in Urine by [id number] 01:48:00 Test Item Value Reference Range Interpretation Comments Bacteria identified in no growth after 2 Urine by Culture (test days code = 630-4) [facility] GroupHIV 1+2 Ab [Presence] in [id number] 01:48:00HIV P24 AgHIV-1/2 AbMatagord[facility] GroupReagin Ab [Presence] in Serum by RPR 2020-04-24 01:48:00 Test Item Value Reference Range Interpretation Comments Reagin Ab [Presence] in Serum by nonreactive nonreactive RPR (test code = 44585-2) [facility] GroupCBC W Auto Differential panel - [id number] 01:48:00 Test Item Value Reference Range Interpretation Comments white blood count (test code = 12.0 K/uL 4.0-11.5 H white blood count) red blood count (test code = red 3.37 M/uL 3.80-5.20 L blood count) hemoglobin (test code = 10.5 g/dL 10.5-15.7 hemoglobin) hematocrit (test code = 31.6 % 34.0-50.0 L hematocrit) MCV [Entitic volume] (test code = 93.8 fL 86-100 53157-7) mean corpuscular hemoglobin (test 31.2 pg 26.2-33.4 code = mean corpuscular hemoglobin) mean corpuscular HGB conc (test 33.2 g/dL 30-34 code = mean corpuscular HGB conc) red cell distribution width (test 13.0 % 12.0-15.5 code = red cell distribution width) platelet count (test code = 244 K/uL 165-450 platelet count) mean platelet volume (test code = 12.0 fL 9.4-12.6 mean platelet volume) Segmented neutrophils/100 76.1 % 44.4-80.1 leukocytes in Blood (test code = 16288-9) Immature granulocytes [#/volume] 0.1 K/uL 0.0-0.03 H in Blood (test code = 39658-8) lymphocyte% (test code = 16.6 % 10.0-50.0 lymphocyte%) mono % (test code = mono %) 4.8 % 3.6-12.0 eos % (test code = eos %) 1.1 % 0.0-5.4 Basophils/100 leukocytes in 0.3 % 0.1-1.2 Unspecified specimen (test code = 36390-0) Band form neutrophils [#/volume] 9.11 K/uL 1.56-6.13 H in Blood (test code = 11276-0) Lymphocytes [#/volume] in 2.0 K/uL 1.18-3.74 Unspecified specimen by Automated count (test code = 43750-8) mono # (test code = mono #) 0.57 K/uL 0.24-0.86 eos # (test code = eos #) 0.13 K/uL 0.04-0.36 basophil # (test code = basophil 0.04 K/uL 0.01-0.08 #) NRBC% (test code = NRBC%) 0 /100 WBC 0-0.2 NRBC# (test code = NRBC#) 0 K/uL [facility] GroupChlamydia trachomatis+Neisseria gonorrhoeae rRNA [Presence] in Unspecified specimen by [id number] 01:48:00 Test Item Value Reference Range Interpretation Comments Chlamydia sp Ag [Presence] in CT not detected Unspecified specimen (test code = 87264-8) [id number] (test code = igz1290) NG not detected [facility] GroupAB[facility] Rh group [Type] in [id number] 01:48:00 Test Item Value Reference Range Interpretation Comments Rh [Type] in Blood (test code = 4+ 29088-2) ABO and Rh group panel - Blood B positive (test code = 16614-3) [facility] GroupBlood group antibody screen [Presence] in Serum or Plasma 2020-04-24 01:48:00 Test Item Value Reference Range Interpretation Comments Blood group antibody screen negative [Presence] in Serum or Plasma (test code = 890-4) [facility] GroupHepatitis B virus surface Ag [Presence] in Serum 2020-04-24 01:48:00 Test Item Value Reference Range Interpretation Comments .hepatitis B surface antigen (test negative negative code = .hepatitis B surface antigen) [facility] GroupBacteria identified in Urine by [id number] 01:48:00 Test Item Value Reference Range Interpretation Comments Bacteria identified in no growth after 2 Urine by Culture (test days code = 630-4) [facility] GroupHIV 1+2 Ab [Presence] in [id number] 01:48:00HIV P24 AgHIV-1/2 AbMatagorda Medical GroupReagin Ab [Presence] in Serum by RPR 2020-04-24 01:48:00 Test Item Value Reference Range Interpretation Comments Reagin Ab [Presence] in Serum by nonreactive nonreactive RPR (test code = 48022-3) [facility] GroupChromosome 13+18+21+X+Y aneuploidy in Blood by Molecular genetics method [id number] 00:00:00 Test Item Value Reference Range Interpretation Comments report summary (test code see notes A = report summary) report note (test code = see notes A report note) trisomy 13 age-based risk score (test code = trisomy 13 age-based risk score) trisomy 13 risk score (test code = trisomy 13 risk score) trisomy 13 age-based risk <1/10,000 (<0.01%) text (test code = trisomy 13 age-based risk text) trisomy 13 risk score text <1/10,000 (<0.01%) (test code = trisomy 13 risk score text) trisomy 13 age-based risk fraction (test code = trisomy 13 age-based risk fraction) trisomy 13 risk score fraction (test code = trisomy 13 risk score fraction) trisomy 13 result text low risk (test code = trisomy 13 result text) trisomy 13 result comments see notes (test code = trisomy 13 result comments) trisomy 18 age-based risk score (test code = trisomy 18 age-based risk score) trisomy 18 risk score (test code = trisomy 18 risk score) trisomy 18 age-based risk 1,336 (0.02%) text (test code = trisomy 18 age-based risk text) trisomy 18 risk score text <1/10,000 (<0.01%) (test code = trisomy 18 risk score text) trisomy 18 age-based risk fraction (test code = trisomy 18 age-based risk fraction) trisomy 18 risk score fraction (test code = trisomy 18 risk score fraction) trisomy 18 result text low risk (test code = trisomy 18 result text) trisomy 18 result comments see notes (test code = trisomy 18 result comments) trisomy 21 age-based risk score (test code = trisomy 21 age-based risk score) trisomy 21 risk score (test code = trisomy 21 risk score) trisomy 21 age-based risk 1,147 (0.09%) text (test code = trisomy 21 age-based risk text) trisomy 21 risk score text <1/10,000 (<0.01%) (test code = trisomy 21 risk score text) trisomy 21 age-based risk fraction (test code = trisomy 21 age-based risk fraction) trisomy 21 risk score fraction (test code = trisomy 21 risk score fraction) trisomy 21 result text low risk (test code = trisomy 21 result text) trisomy 21 result comments see notes (test code = trisomy 21 result comments) monosomy X age-based risk score (test code = monosomy X age-based risk score) monosomy X risk score (test code = monosomy X risk score) monosomy X age-based risk 1/568 (0.18%) text (test code = monosomy X age-based risk text) monosomy X risk score text n/a (test code = monosomy X risk score text) monosomy X age-based risk fraction (test code = monosomy X age-based risk fraction) monosomy X risk score fraction (test code = monosomy X risk score fraction) monosomy X result text no result (test code = monosomy X result text) monosomy X result comments see notes (test code = monosomy X result comments) triploidy result text low risk (test code = triploidy result text) triploidy result comments see notes (test code = triploidy result comments) gender of fetus (test code male = gender of fetus) fraction (in %) 10.5 % (test code = fraction (in %)) fraction (test code 10.5% = fraction) footnotes (test code = see notes footnotes) boiler plate text (test see notes code = boiler plate text) references (test code = see notes references) approvals (test code = see notes approvals) contacts (test code = see notes contacts) [facility] by [facility] genetics method [id number] 00:00:00 Test Item Value Reference Range Interpretation Comments 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) alpha-thalassemia (test code = negative alpha-thalassemia) beta-hemoglobinopathies (test code negative = beta-hemoglobinopathies) pamela disease (test code = negative pamela disease) cystic fibrosis (test code = cystic negative fibrosis) duchenne/lerma muscular dystrophy negative (test code = duchenne/lerma muscular dystrophy) familial dysautonomia (test code = negative familial dysautonomia) fragile X syndrome (test code = negative fragile X syndrome) galactosemia (test code = negative galactosemia) gaucher disease (test code = negative gaucher disease) 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 (test yes code = IS this patient ?) did this patient sign the patient yes acknowledgement? (test code = did this patient sign the patient acknowledgement?) did the ordering clinician sign the yes statement of informed consent? (test code = did the ordering clinician sign the statement of informed consent?) zip code of the ordering facility see notes (test code = zip code of the ordering facility) IS the patient currently using no hormonal medications? (test code = IS the patient currently using hormonal medications?) patient ethnicity (test code = see notes patient ethnicity) report note (test code = report see notes note) footnotes (test code = footnotes) see notes references (test code = references) see notes approvals (test code = approvals) see notes contacts (test code = contacts) [facility]+18+21[facility]Y aneuploidy in Blood by Molecular genetics method [id number] 00:00:00 Test Item Value Reference Range Interpretation Comments report summary (test code see notes A = report summary) report note (test code = see notes A report note) trisomy 13 age-based risk score (test code = trisomy 13 age-based risk score) trisomy 13 risk score (test code = trisomy 13 risk score) trisomy 13 age-based risk <1/10,000 (<0.01%) text (test code = trisomy 13 age-based risk text) trisomy 13 risk score text <1/10,000 (<0.01%) (test code = trisomy 13 risk score text) trisomy 13 age-based risk fraction (test code = trisomy 13 age-based risk fraction) trisomy 13 risk score fraction (test code = trisomy 13 risk score fraction) trisomy 13 result text low risk (test code = trisomy 13 result text) trisomy 13 result comments see notes (test code = trisomy 13 result comments) trisomy 18 age-based risk score (test code = trisomy 18 age-based risk score) trisomy 18 risk score (test code = trisomy 18 risk score) trisomy 18 age-based risk 1/4,336 (0.02%) text (test code = trisomy 18 age-based risk text) trisomy 18 risk score text <1/10,000 (<0.01%) (test code = trisomy 18 risk score text) trisomy 18 age-based risk fraction (test code = trisomy 18 age-based risk fraction) trisomy 18 risk score fraction (test code = trisomy 18 risk score fraction) trisomy 18 result text low risk (test code = trisomy 18 result text) trisomy 18 result comments see notes (test code = trisomy 18 result comments) trisomy 21 age-based risk score (test code = trisomy 21 age-based risk score) trisomy 21 risk score (test code = trisomy 21 risk score) trisomy 21 age-based risk 1/,147 (0.09%) text (test code = trisomy 21 age-based risk text) trisomy 21 risk score text <1/10,000 (<0.01%) (test code = trisomy 21 risk score text) trisomy 21 age-based risk fraction (test code = trisomy 21 age-based risk fraction) trisomy 21 risk score fraction (test code = trisomy 21 risk score fraction) trisomy 21 result text low risk (test code = trisomy 21 result text) trisomy 21 result comments see notes (test code = trisomy 21 result comments) monosomy X age-based risk score (test code = monosomy X age-based risk score) monosomy X risk score (test code = monosomy X risk score) monosomy X age-based risk 1568 (0.18%) text (test code = monosomy X age-based risk text) monosomy X risk score text n/a (test code = monosomy X risk score text) monosomy X age-based risk fraction (test code = monosomy X age-based risk fraction) monosomy X risk score fraction (test code = monosomy X risk score fraction) monosomy X result text no result (test code = monosomy X result text) monosomy X result comments see notes (test code = monosomy X result comments) triploidy result text low risk (test code = triploidy result text) triploidy result comments see notes (test code = triploidy result comments) gender of fetus (test code male = gender of fetus) fraction (in %) 10.5 % (test code = fraction (in %)) fraction (test code 10.5% = fraction) footnotes (test code = see notes footnotes) boiler plate text (test see notes code = boiler plate text) references (test code = see notes references) approvals (test code = see notes approvals) contacts (test code = see notes contacts) [facility] specimen by Molecular genetics method [id number] 00:00:00 Test Item Value Reference Range Interpretation Comments 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) alpha-thalassemia (test code = negative alpha-thalassemia) beta-hemoglobinopathies (test code negative = beta-hemoglobinopathies) pamela disease (test code = negative pamela disease) cystic fibrosis (test code = cystic negative fibrosis) duchenne/lerma muscular dystrophy negative (test code = duchenne/lerma muscular dystrophy) familial dysautonomia (test code = negative familial dysautonomia) fragile X syndrome (test code = negative fragile X syndrome) galactosemia (test code = negative galactosemia) gaucher disease (test code = negative gaucher disease) 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 (test yes code = IS this patient ?) did this patient sign the patient yes acknowledgement? (test code = did this patient sign the patient acknowledgement?) did the ordering clinician sign the yes statement of informed consent? (test code = did the ordering clinician sign the statement of informed consent?) zip code of the ordering facility see notes (test code = zip code of the ordering facility) IS the patient currently using no hormonal medications? (test code = IS the patient currently using hormonal medications?) patient ethnicity (test code = see notes patient ethnicity) report note (test code = report see notes note) footnotes (test code = footnotes) see notes references (test code = references) see notes approvals (test code = approvals) see notes contacts (test code = contacts) see notes [facility]
[2021-11-20] MEDS ORDERED: METOCLOPRAMIDE 10 MG/2mL INJ IV SCH (13:00)
[2021-11-20] MEDS ORDERED: OXYTOCIN/LR 20 UNIT/1,000 ML BAG IV SCH ×2 (13:00→14:00)
[2021-11-20] MEDS ORDERED: Ringers Lactate 1,000 ML IV SCH (13:00)
[2021-11-20 13:06] LABS: Absolute Lymphocytes (CBC) 2.9 K/uL (0.7-4.9); Hematocrit 34.6 % (36.0-45.0); Lymphocytes % 13.6 % (15.3-44.8); MPV 9.6 fL (7.6-11.3); RBC Red Blood Cell Count 3.74 M/uL (3.86-4.86)
[2021-11-20] MEDS ORDERED: Oxycodone HCl/Acetaminophen 1 TAB TAB PO PRN (13:49)
[2021-11-20] MEDS ORDERED: DOCUSATE NA/SENNA CONC 1 TAB PO PRN (13:49)
[2021-11-20] MEDS ORDERED: BISACODYL 10 MG RECTAL SUPP PR PRN (13:49)
[2021-11-20] MEDS ORDERED: DIPHENHYDRAMINE 25 MG TAB/CAP PO PRN (13:49)
[2021-11-20] MEDS ORDERED: ACETAMINOPHEN 500 MG TAB PO PRN (13:49)
[2021-11-20 14:05] LABS: Blood Morphology Comment NOT SEEN (NOT SEEN); Platelet Estimate ADEQ
[2021-11-20] MEDS ORDERED: IBUPROFEN 600 MG TAB PO PRN (14:33)
[2021-11-20] MEDS: Oxycodone HCl/Acetaminophen 1 TAB TAB PO PRN (15:02)
[2021-11-20 17:29] VITALS: BMI 24.1
--- NOTE | 2021-11-20 17:55 | PREOPHP ---
Date of Admission: 11/20/2021 History Of Present Illness: Suzie Mak, 31-year-old 5, para 4, 39 weeks 5 days. [facility] patie nt, brought in by EMT, noted to be completely dilated. According to her significant other, she has b een seen at [facility] without complications. All of her other pregnancies were without complicatio ns. The patient herself is not really saying anything. said he could not get her into car t o take her to [facility] because of the contractions, so he called the ambulance services and they brought her here. Family History: Noncontributory. Past Medical History: No surgeries. Allergies: NO ALLERGIES. ALL OTHER PREGNANCIES NORMAL DELIVERIES AND NORMAL BABIES. HE SAID, HOWEVER, THAT SHE HAS BEEN LEAKI NG FLUID FOR 3 DAYS, APPARENTLY DID NOT GO BACK TO [facility]. THEY WERE SEEN ON MONDAY THIS WEEK AND ERE WAS NO MENTION OF RUPTURE OF MEMBRANES AT THAT POINT. BABY'S HEART RATE IS NORMAL. THERE IS NO BAD ODOR. THERE IS NO UTERINE TENDERNESS. SO WHETHER OR NOT MEMBRANES HAVE BEEN RUPTURED THAT LONG REMAINS TO BE SEEN, BUT PEDIATRICS WILL BE NOTIFIED. SAYS HER BETA STREP WAS NEGATIVE. SHE INDEED I S COMPLETELY DILATED. THE BABY IS ABOUT 0 STATION. WE WILL START LIGHT PITOCIN SHE HAS NO REAL U RGE TO PUSH AT THIS POINT. Physical Examination: HEENT: Clear. Pupils equal, round, and reactive to light and accommodation. Conjunctivae well perf used. No oral, lingual, or buccal lesions. Lungs: Clear. Heart: Without murmurs. Breasts: Not examined. Abdomen: Term size although the patient is small and this does not appear to be a large baby. Extremities: Clear without edema, cyanosis, or clubbing. Plan: Admit for stabilization and delivery. YENNIFER/SHANTEL Voice ID: [id number]
[2021-11-20] MEDS ORDERED: Ringers Lactate 1,000 ML IV ONE (18:07)
--- NOTE | 2021-11-21 00:10 | OP ---
Surgeon: Dheeraj Green MD Indications: 31-year-old 5, para 4, at 39 weeks 5 days, [facility], came to our facility completely dilated. According to her significant other, she ruptured membranes 3 days ago, but there has been no bad odor, no uterine tenderness, no tachycardia. Nonetheless, we w ill save the placenta for evaluation and Pediatrics will be notified. Procedure In Detail: She was started on Pitocin augmentation. Second stage at 1, she began to push, lasted about 10-12 minutes. Spontaneous vaginal delivery of a 5 pounds 14 ounces female. Apgars 9 and 9 or 9 and 10, very small first-degree laceration repaired with 2-0 chromic under local infiltrat ion. Schultze delivery of the placenta, which was inspected, noted be heavily calcified, but otherwi se normal and again without odor, say for pathologic exam if needed. Uterus contracted down well wit h IV drip Pitocin and massage. Estimated blood loss 350 cc. The patient had Reglan 10 mg IV and 30 cc of antacid at her request during the labor; otherwise Lamaze breathing techniques. The patient ac tually very stoic and very quiet. or significant other did most of the talking. Final Diagnoses: Term intrauterine 39 weeks 5 days, [facility] drop in patient, vaginal delivery . Labs pending, but she said she was negative beta strep. NBC/MODL Voice ID: [id number] Report ID: [id number]
[2021-11-21] MEDS: Oxycodone HCl/Acetaminophen 1 TAB TAB PO PRN (05:13)
--- NOTE | 2021-11-21 08:57 | DS ---
Hospital Course: A multiparous female, followed antepartum from [facility]. She lives in [place], was here visiting relatives when she went into labor, brought to this hospital, delivered spontaneously of a 5 pounds 14 ounces. Female, 's of 9 and 9. Very small first-degree lacerati on, repaired with 2-0 chromic under local infiltration. Schultze delivery of the placenta, inspected and noted to be intact and normal. Heavily calcified, but otherwise, normal. Estimated blood loss of 400 cc or less. ; afebrile, ambulating, voiding. Lochia is normal. She is Rh positive , immune to Rubella. Negative strep screen. Offered Tdap immunization. Has no complaints or proble ms this morning. She knows to follow up with her clinic for 6 weeks checkup. She can see me if she prefers. White count was 21,000 on admission, but that was secondary to advanced labor. The patient has been afebrile. The baby showed no tachycardia. There was no uterine tenderness. There was no m alodor. I do not suspect any type of infection. Thorough discussion with patient and . Final Diagnoses: Term intrauterine . Spontaneous vaginal delivery and Tdap offered. YENNIFER/SHANTEL Voice ID: [id number] Report ID: [id number]
[2021-11-21] MEDS ORDERED: FAMOTIDINE 20 MG/2 ML VIAL IV SCH (09:00)
[2021-11-21 14:52] VITALS: BP 111/63; TEMP 98
[2021-11-22 01:41] LABS: RPR (Rapid Plasma Reagin) NON-REACT (NON-REACT)
[2021-11-23 18:45] LABS: HBsAG Nonreactive (Nonreactive)
== END 2021-11-21 16:30 | disposition home or self-care (01) | DRG 807 ==
LOC: 2ND-WC 12:40
PROVIDERS: ADMIT Specialist; ATTEND Specialist
PROC: 10E0XZZ Delivery of Products of Conception, External Approach (ICD-10-PCS; principal; 2021-11-20)
PROC: 0HQ9XZZ Repair Perineum Skin, External Approach (ICD-10-PCS; 2021-11-20)
DX: O70.0 First degree perineal laceration during delivery (principal); Z37.0 Single live birth; Z3A.39 39 weeks gestation of pregnancy; Z20.822 Contact with and (suspected) exposure to COVID-19
CPT/HCPCS: 36415; 85025; 86592; 86901; 87340; G0433; J7120; U0003

== ENCOUNTER 2024-11-12 04:14 | Emergency (ER) | payer OTHER ==
--- OUTSIDE RECORDS SUMMARY | 2024-11-12 04:20 | XMS REPORT | Continuity of Care Document ---
Author Name Unknown Address [address] [facility] [address] [place] [address] [facility] Address [address] [facility] [address] [place] [address] Care Team Providers Care Balloon Sander Name Role Phone Pcp, Patient Does Not Have A Primary Care Physic ning BJ FRAIRE Attending Clinician Unavailable BJ FRAIRE Attending Clinician Unavailable Doctor Unassigned, [place] Attending Clinician U navailable MELCHOR LOAIZA Attending Clinician Unavailable Bj Fraire MD Attending Clinician Art Hancock MD Attending Clinician [phone] Edi Carlisle MD Attending Clinician [phone], [facility] Attending Clinician Unavailable Ultrasound, Ang-Mffanny Attending Clinician Unavaila ble UNKNOWN, ATTENDING Attending Clinician Unavailab JAY Swain Attending Clinician Unavailable ROCHELLE CASTORENA Attending Clinician Unavailabl e Doctor Unassigned, [place] Attending Clinician U navailable BON JETER Attending Clinician Unavailab le G_Pappas Attending Clinician Unavailable OCTAVIO AUGUST Attending Clinician UnavailKELLY Hoyos Attending Clinician Unavailable White_M Attending Clinician Unavailable Rutledge_L Attending Clinician Unavailable BJ FRAIRE Admitting Clinician Unavailable BON JETER Admitting Clinician Unavailab le G_Pappas Admitting Clinician Unavailable White_M Admitting Clinician Unavailable OCTAVIO AUGUST Admitting Clinician Unavailalvin e Rutledge_L Admitting Clinician Unavailable Payers Payer Name Policy Type Policy Number Effective Date Expirati on Date Source [facility] [id number] 2023 00:00:00 [place] [id number] 2023 00:00:00 [facility] (MEDICAID REPLACEMENT - HMO) [id number] [place] [facility] [id number] Problems Condition Name Condition Details Condition Category Status Onset Date Resolution Date Last Treatment Date Treating Clinician Comments Source Pre-operat karen evaluation for tubal ligation Pre-operat karen evaluation for tubal ligation Disease Active 0 6-12 00:00: 00 [facility] Gastroesop hageal reflux disease without esophagiti s Gastroesop hageal Reflux Disease without Esophagiti s Problem Active 2-03 00:00: 00 [facility] 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 Problem Active 2020-09 0-19 00:00: 00 [facility] Problem Active 2020-09 0-19 00:00: 00 [facility] Normal labor Normal labor Disease Resolve d 2023-0 8-01 00:00: 00 2024-05-17 00:00:00 2024-05-17 06:12:54 [facility] Full-term premature rupture of membranes with onset of labor within 24 hours of rupture Full-term premature rupture of membranes with onset of labor within 24 hours of rupture Disease Resolve d 2023-0 8-01 00:00: 00 2024-05-17 00:00:00 2024-05-17 06:12:55 [facility] Liveborn , of [place] , born in hospital by vaginal delivery Liveborn , of [place] , born in hospital by vaginal delivery Disease Resolve d 2023-0 8-01 00:00: 00 2024-05-17 00:00:00 2024-05-17 06:12:56 [facility] 40 weeks gestation of 40 weeks gestation of Disease Resolve d 0 7-31 00:00: 00 2024-05-17 00:00:00 2024-05-17 06:12:53 [facility] Gastroesop hageal reflux disease, unspecifie d whether esophagiti s present Gastroesop hageal reflux disease, unspecifie d whether esophagiti s present Disease Resolve d 0 7-23 00:00: 00 2024-05-17 00:00:00 2024-05-17 06:12:52 [facility] High-risk in third trimester High-risk in third trimester Disease Resolve d 0 3-06 00:00: 00 2024-05-17 00:00:00 2024-05-17 06:12:42 [facility] 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 Disease Resolve d 3-06 00:00: 00 2024-05-17 00:00:00 2024-05-17 06:12:47 [facility] Breech presentati on, single or unspecifie d fetus Breech presentati on, single or unspecifie d fetus Disease Resolve d 0 7-30 00:00: 00 2024-04-04 00:00:00 2024-04-04 09:34:48 [facility] Allergies, Adverse Reactions, Alerts Allergy Name Allergy Type Status Severity Reaction(s) Onset Date Inactive Date Treating Clinician Comments Source NO KNOWN ALLERGIE S Drug Class Active [facility] Social History Social Habit Start Date Stop Date Quantity Comments Source ASSERTION 2023-07-13 00:00:00 [facility] History of tobacco use Cigarette Smoker [facility] Alcoholic beverage intake 2024-03-06 00:00:00 2024-03-06 00:00:00 Lifetime non-drinker (finding) [facility] Tobacco use and exposure 2024-02-14 00:00:00 2024-02-14 00:00:00 Smokeless tobacco non-user [facility] History of Social function 2024-01-09 00:00:00 2024-01-09 00:00:00 [facility] Alcohol intake 2023-12-07 00:00:00 2023-12-07 00:00:00 Lifetime non-drinker (finding) [facility] Tobacco Comment 2023-10-11 00:00:00 2023-10-11 00:00:00 5 cigs a day [facility] Sex assigned at 1990 00:00:00 1990 00:00:00 [facility] Smoking Status Start Date Stop Date Source Heavy Tobacco Smoker [facility] Smokes tobacco daily 2024-02-14 00:00:00 [facility] Medications Ordered Medication Name Filled Medication Name Start Date Stop Date Current Medication? Ordering Clinician Indication Dosage Frequency Signature (SIG) Comments Components Source vitamin w/FA tablet 04-05 00:00: 00 05-17 00:00 :00 No [id number] 102 1{tbl} Take 1 tablet by mouth in the morning. [facility] docusate 100 mg capsule 04-05 00:00: 00 05-17 00:00 :00 No [id number] 102 200mg Take 2 capsules by mouth once daily as needed for Constipati on. [facility] ferrous sulfate 325 mg (65 mg iron) tablet 04-05 00:00: 00 05-17 00:00 :00 No [id number] 102 325mg Take 1 tablet by mouth in the morning. [facility] ibuprofen 800 mg tablet 04-05 00:00: 00 05-17 00:00 :00 No [id number] 102 800mg Take 1 tablet by mouth every 8 (eight) hours as needed (pain). Take with food or milk. [facility] witch Chavo (TUCKS) 50 % topical pad 04-04 15:37: 37 Yes Topical, Q4HPRN, Starting on Pearl 04/04/24 at 1037, Until Discontinu ed, Routine, rectal/hem orrhoidal pain [facility] rho(D) immune globulin (RHOPHYLAC) injection 300 mcg 04-04 15:35: 15 Yes 300ug [facility] ity [facility] HYDROcodone -acetaminop hen (NORCO 5) tablet 1 tablet 04-04 15:34: 13 Yes 1[facility]tbl[facility] ibuprofen (IBU) tablet 600 mg 04-04 15:34: 13 Yes 600mg 600 mg, Oral, Q6HPRN, Starting on Mon04/04/24 at 1034, Until Discontinu ed, Routine, Pain (scale 4-6) [facility] acetaminoph en (TYLENOL) tablet 650 mg 04-04 15:34: 13 Yes 650mg 650 mg, Oral, Q6HPRN, Starting on Mon04/04/24 at 1034, Until Discontinu ed, Routine, Pain (scale 1-3) [facility] diphenhydrA MINE (BENADRYL) tablet 25 mg 04-04 15:34: 13 Yes 25mg [facility] ondansetron (ZOFRAN (PF)) injection 4 mg 04-04 15:34: 13 Yes 4mg [facility] simethicone (GAS RELIEF (SIMETHICON E)) chewable tablet 160 mg 04-04 15:34: 13 Yes 160mg [facility] docusate (COLACE) capsule 200 mg 04-04 15:34: 13 Yes 200mg 200 mg, Oral, QDAILYPRN, Starting on Mon04/04/24 at 1034, Until Discontinu ed, Routine, Constipati on [facility] magnesium hydroxide (MILK OF MAGNESIA) 400 mg/5 mL suspension 30 mL 04-04 15:34: 13 Yes 30mL [facility] benzocaine- menthol (DERMOPLAST ) 20-0.5 % topical spray 04-04 15:34: 13 Yes Topical, PRN, Starting on Mon04/04/24 at 1034, Until Discontinu ed, Routine, Perineum discomfort [facility] oxytocin (PITOCIN) 30 units in NS 500 mL IV infusion 04-04 14:32: 04 04-04 15:35 :26 No 300mL/h 300 mL/hr, IV Infusion, SEE-INSTRU CTIONS, Starting on Pearl 04/04/24 at 0932, Start at 300 mL/hr for 1 hr then 150 mL/hr for 1 hr. For post delivery uterotonic . [facility] oxytocin (PITOCIN) 30 units in NS 500 mL IV infusion 04-04 13:30: 00 04-04 15:37 :37 No 2mU/min at 2-40 mL/hr, IV Infusion, TITRATE, Starting on Pearl 04/04/24 at 0830, Until Pearl 04/04/24 at 1037, EDI [facility] ondansetron (ZOFRAN (PF)) injection 4 mg 04-04 13:30: 00 04-04 13:24 :00 No 4mg 4 mg, Slow IV Push, ONCE, On Pearl 04/04/24 at 0830, For 1 dose, Doses of ondansetro n 16 mg and above need to be administer ed via IV piggyback. For Dose >=24mg ECG monitoring is advisable. [facility] fentaNYL-ro pivacaine 2 mcg/mL-0.1 % (PF) in NS 200 mL epidural infusion RTU 04-04 08:05: 00 04-04 18:38 :39 No Intra-op [facility] lidocaine-e pinephrine (XYLOCAINE W/EPINEPHRI NE) 1.5 %-1:200,000 injection 04-04 08:01: 00 04-04 18:38 :39 No Epidural, ONCE INTRA PROCEDURE, Starting on Pearl 04/04/24 at 0301, Until Pearl 04/04/24 at 1338, Routine, Intra-op [facility] lactated ringers IV infusion 500 mL 04-04 06:30: 00 04-04 08:28 :00 No 500mL at 999 mL/hr, 500 mL, IV Infusion, ONCE, 1 dose, On Pearl 04/04/24 at 0130, Routine [facility] oxytocin (PITOCIN) 30 units in NS 500 mL IV infusion 04-04 06:24: 09 04-04 08:28 :20 No 600mL/h 600 mL/hr, IV Infusion, PRN, PPH, Starting on Pearl 04/04/24 at 0124, For 1 dose, As instructed by physician at bedside. [facility] D5W-LR IV infusion 1,000 mL 04-04 06:24: 09 04-04 15:37 :40 No 1000mL at 1-125 mL/hr, IV Infusion, TITRATE, Starting on Pearl 04/04/24 at 0124, Until Pearl 8 at 1037, Routine [facility] famotidine (PEPCID) 20 mg tablet 7-23 00:00: 00 04-05 00:00 :00 No [id number] 20mg Take 1 tablet by mouth in the morning and 1 tablet in the evening. [facility] valACYclovi r (VALTREX) 500 mg tablet 7-03 00:00: 00 04-05 00:00 :00 No [id number] 500mg Take 1 tablet by mouth in the morning. [facility] PNV 67-iron ps-folate no.1-dha (VITAFOL ULTRA) 29 mg iron- 1 mg-200 mg Cap 2-07 00:00: 00 04-05 00:00 :00 No 1{tbl} Take 1 tablet by mouth in the morning. [facility] cefdinir 300 mg capsule 1-25 00:00: 00 10-06 05:59 :00 No [id number] 300mg Take 1 capsule by mouth every 12 (twelve) hours for 7 days. [facility] ferrous gluconate 240 mg (27 mg iron) tablet Take 1 tablet every day by oral route. ferrous gluconate 240 mg (27 mg iron) tablet Take 1 tablet every day by oral route. No 1 Q1D ferrous gluconate 240 mg (27 mg iron) tablet Take 1 tablet every day by oral route. [facility] metoclopram josiane 10 mg tablet TAKE 1 TABLET BY MOUTH THREE TIMES DAILY metoclopram josiane 10 mg tablet TAKE 1 TABLET BY MOUTH THREE TIMES DAILY No metoclopra mide 10 mg tablet TAKE 1 TABLET BY MOUTH THREE TIMES DAILY [facility] omeprazole 40 mg capsule,del ayed release TAKE 1 CAPSULE BY MOUTH EVERY DAY omeprazole 40 mg capsule,del ayed release TAKE 1 CAPSULE BY MOUTH EVERY DAY No omeprazole 40 mg capsule,de layed release TAKE 1 CAPSULE BY MOUTH EVERY DAY [facility] Vitafol Ultra 29 mg iron-1 mg-200 mg capsule Take 1 capsule every day by oral route. Vitafol Ultra 29 mg iron-1 mg-200 mg capsule Take 1 capsule every day by oral route. No Vitafol Ultra 29 mg iron-1 mg-200 mg capsule Take 1 capsule every day by oral route. [facility] Vitafol-One 29 mg iron-1 mg-200 mg capsule Take 1 capsule every day by oral route. Vitafol-One 29 mg iron-1 mg-200 mg capsule Take 1 capsule every day by oral route. No Vitafol-On e 29 mg iron-1 mg-200 mg capsule Take 1 capsule every day by oral route. [facility] Vital Signs Vital Name Observation Time Observation Value Comments S [facility] Systolic blood pressure 2024-05-27 14:07:00 125 mm[Hg] [facility] Diastolic blood pressure 2024-05-27 14:07:00 77 mm[Hg] [facility] Heart rate 2024-05-27 14:07:00 78 /min [facility] Body temperature 2024-05-27 14:07:00 36.61 Keke [facility] Body height 2024-05-27 14:07:00 160 cm [facility] Body weight 2024-05-27 14:07:00 56.065 kg [facility] BMI 2024-05-27 14:07:00 21.89 kg/m2 [facility] Systolic blood pressure 2024-05-16 18:24:00 114 mm[Hg] [facility] Diastolic blood pressure 2024-05-16 18:24:00 78 mm[Hg] [facility] Heart rate 2024-05-16 18:24:00 95 /min [facility] Respiratory rate 2024-05-16 18:24:00 16 /min [facility] Body height 2024-05-16 18:24:00 160 cm [facility] Body weight 2024-05-16 18:24:00 55.974 kg [facility] BMI 2024-05-16 18:24:00 21.86 kg/m2 [facility] Systolic blood pressure 2024-04-05 12:22:00 118 mm[Hg] [facility] Diastolic blood pressure 2024-04-05 12:22:00 60 mm[Hg] [facility] Heart rate 2024-04-05 12:22:00 59 /min [facility] Body temperature 2024-04-05 12:22:00 36.94 Keke [facility] Respiratory rate 2024-04-05 12:22:00 18 /min [facility] Oxygen saturation in Arterial blood by Pulse oximetry 2024-04-05 12:22:00 98 /min [facility] Body height 2024-04-04 06:30:00 160 cm [facility] Body weight 2024-04-04 06:30:00 63.776 kg [facility] BMI 2024-04-04 06:30:00 24.91 kg/m2 [facility] Systolic blood pressure 2024-04-02 20:43:00 119 mm[Hg] [facility] Diastolic blood pressure 2024-04-02 20:43:00 67 mm[Hg] [facility] Heart rate 2024-04-02 20:43:00 79 /min [facility] Body temperature 2024-04-02 20:43:00 36.28 Keke [facility] Body height 2024-04-02 20:43:00 160 cm [facility] Body weight 2024-04-02 20:43:00 64.592 kg [facility] BMI 2024-04-02 20:43:00 25.23 kg/m2 [facility] Systolic blood pressure 2024-03-26 21:21:00 125 mm[Hg] [facility] Diastolic blood pressure 2024-03-26 21:21:00 66 mm[Hg] [facility] Heart rate 2024-03-26 21:21:00 74 /min [facility] Body temperature 2024-03-26 21:21:00 36.61 Keke [facility] Body height 2024-03-26 21:21:00 160 cm [facility] Body weight 2024-03-26 21:21:00 65.772 kg [facility] BMI 2024-03-26 21:21:00 25.69 kg/m2 [facility] Systolic blood pressure 2024-03-06 20:07:00 109 mm[Hg] [place] [facility] Diastolic blood pressure 2024-03-06 20:07:00 70 mm[Hg] [facility] Heart rate 2024-03-06 20:07:00 77 /min [facility] Body temperature 2024-03-06 20:07:00 36.5 Keke [facility] Body height 2024-03-06 20:07:00 160 cm [facility] Body weight 2024-03-06 20:07:00 65.409 kg [facility] BMI 2024-03-06 20:07:00 25.54 kg/m2 [facility] Systolic blood pressure 2024-02-28 20:59:00 111 mm[Hg] [facility] Diastolic blood pressure 2024-02-28 20:59:00 73 mm[Hg] [facility] Heart rate 2024-02-28 20:59:00 80 /min [facility] Respiratory rate 2024-02-28 20:59:00 18 /min [facility] Body height 2024-02-28 20:59:[address] Body weight 2024-02-28 20:59:00 65.772 kg [facility] BMI 2024-02-28 20:59:00 25.69 kg/m2 [facility] Systolic blood pressure 2024-02-14 21:01:00 121 mm[Hg] [facility] Diastolic blood pressure 2024-02-14 21:01:00 68 mm[Hg] [facility] Heart rate 2024-02-14 21:01:00 86 /min [facility] Body temperature 2024-02-14 21:01:00 36.61 Keke [facility] Body height 2024-02-14 21:01:00 160 cm [facility] Body weight 2024-02-14 21:01:00 65.137 kg [facility] BMI 2024-02-14 21:01:00 25.44 kg/m2 [facility] Systolic blood pressure 2024-01-09 16:30:00 111 mm[Hg] [facility] Diastolic blood pressure 2024-01-09 16:30:00 70 mm[Hg] [facility] Heart rate 2024-01-09 16:30:00 89 /min [facility] Body temperature 2024-01-09 16:30:00 36.5 Keke [facility] Respiratory rate 2024-01-09 16:30:00 18 /min [facility] Body height 2024-01-09 16:30:00 160 cm [facility] Body weight 2024-01-09 16:30:00 62.415 kg [facility] BMI 2024-01-09 16:30:00 24.37 kg/m2 [facility] Systolic blood pressure 2023-12-07 15:36:00 120 mm[Hg] [facility] Diastolic blood pressure 2023-12-07 15:36:00 61 mm[Hg] [facility] Heart rate 2023-12-07 15:36:00 85 /min [facility] Body temperature 2023-12-07 15:36:00 36.94 Keke [facility] Body height 2023-12-07 15:36:00 160 cm [facility] Body weight 2023-12-07 15:36:00 60.419 kg [facility] BMI 2023-12-07 15:36:00 23.60 kg/m2 [facility] Systolic blood pressure 2023-11-08 16:26:00 128 mm[Hg] [facility] Diastolic blood pressure 2023-11-08 16:26:00 70 mm[Hg] [facility] Heart rate 2023-11-08 16:26:00 90 /min [facility] Body temperature 2023-11-08 16:26:00 36.56 Keke [facility] Respiratory rate 2023-11-08 16:26:00 18 /min [facility] Body height 2023-11-08 16:26:00 160 cm [facility] Body weight 2023-11-08 16:26:00 58.514 kg [facility] BMI 2023-11-08 16:26:00 22.85 kg/m2 [facility] Systolic blood pressure 2023-10-11 16:07:00 123 mm[Hg] [facility] Diastolic blood pressure 2023-10-11 16:07:00 72 mm[Hg] [facility] Heart rate 2023-10-11 16:07:00 99 /min [facility] Body temperature 2023-10-11 16:07:00 36.67 Keke [facility] Body height 2023-10-11 16:07:00 160 cm [facility] Body weight 2023-10-11 16:07:00 55.339 kg [facility] BMI 2023-10-11 16:07:00 21.61 kg/m2 [facility] Systolic blood pressure 2023-09-29 05:45:48 122 mm[Hg] [facility] Diastolic blood pressure 2023-09-29 05:45:48 72 mm[Hg] [facility] Heart rate 2023-09-29 05:45:48 82 /min [facility] Body temperature 2023-09-29 05:45:48 36.78 Keke [facility] Respiratory rate 2023-09-29 05:45:48 17 /min [facility] Oxygen saturation in Arterial blood by Pulse oximetry 2023-09-29 05:45:48 98 /min [facility] Body height 2023-09-29 01:01:00 160 cm [facility] Body weight 2023-09-29 01:01:00 52.617 kg [facility] BMI 2023-09-29 01:01:00 20.55 kg/m2 [facility] BP Diastolic 2021-11-18 00:00:00 79 mm[Hg] [facility] Height 2021-11-18 00:00:00 64 [in_i] [facility] BMI (Body Mass Index) 2021-11-18 00:00:00 22.7 kg/m2 [facility] BP Systolic 2021-11-18 00:00:00 127 mm[Hg] [facility] Body Weight 2021-11-18 00:00:00 132.5 [lb_av] [facility] BP Diastolic 2021-11-11 00:00:00 69 mm[Hg] [facility] Height 2021-11-11 00:00:00 64 [in_i] [facility] BMI (Body Mass Index) 2021-11-11 00:00:00 23.3 kg/m2 [facility] BP Systolic 2021-11-11 00:00:00 103 mm[Hg] [facility] Body Weight 2021-11-11 00:00:00 135.6 [lb_av] [facility] BP Diastolic 2021-11-04 00:00:00 71 mm[Hg] [facility] Height 2021-11-04 00:00:00 64 [in_i] [facility] BMI (Body Mass Index) 2021-11-04 00:00:00 23.3 kg/m2 [facility] BP Systolic 2021-11-04 00:00:00 108 mm[Hg] [facility] Body Weight 2021-11-04 00:00:00 135.7 [lb_av] [facility] BP Diastolic 2021-10-27 00:00:00 68 mm[Hg] [facility] Height 2021-10-27 00:00:00 64 [in_i] [facility] BMI (Body Mass Index) 2021-10-27 00:00:00 23.7 kg/m2 [facility] BP Systolic 2021-10-27 00:00:00 111 mm[Hg] [facility] Body Weight 2021-10-27 00:00:00 138 [lb_av] [facility] BP Diastolic 2021-10-07 00:00:00 70 mm[Hg] [facility] Height 2021-10-07 00:00:00 64 [in_i] [facility] BMI (Body Mass Index) 2021-10-07 00:00:00 22.7 kg/m2 [facility] BP Systolic 2021-10-07 00:00:00 116 mm[Hg] [facility] Body Weight 2021-10-07 00:00:00 132 [lb_av] [facility] BP Diastolic 2021-09-10 00:00:00 68 mm[Hg] [facility] Height 2021-09-10 00:00:00 64 [in_i] [facility] BMI (Body Mass Index) 2021-09-10 00:00:00 22.3 kg/m2 [facility] BP Systolic 2021-09-10 00:00:00 108 mm[Hg] [facility] Body Weight 2021-09-10 00:00:00 130 [lb_av] [facility] BP Diastolic 2021-08-03 00:00:00 58 mm[Hg] [facility] Height 2021-08-03 00:00:00 64 [in_i] [facility] BMI (Body Mass Index) 2021-08-03 00:00:00 22.1 kg/m2 [facility] BP Systolic 2021-08-03 00:00:00 92 mm[Hg] [facility] Body Weight 2021-08-03 00:00:00 129 [lb_av] [facility] BP Diastolic 2021-07-06 00:00:00 66 mm[Hg] [facility] Height 2021-07-06 00:00:00 64 [in_i] [facility] BMI (Body Mass Index) 2021-07-06 00:00:00 21.9 kg/m2 [facility] BP Systolic 2021-07-06 00:00:00 110 mm[Hg] [facility] Body Weight 2021-07-06 00:00:00 127.8 [lb_av] [facility] BP Diastolic 2021-06-22 00:00:00 64 mm[Hg] [facility] Height 2021-06-22 00:00:00 64 [in_i] [facility] BMI (Body Mass Index) 2021-06-22 00:00:00 21.9 kg/m2 [facility] BP Systolic 2021-06-22 00:00:00 116 mm[Hg] [facility] Body Weight 2021-06-22 00:00:00 127.7 [lb_av] [facility] BP Diastolic 2020-08-25 00:00:00 92 mm[Hg] [facility] Height 2020-08-25 00:00:00 64 [in_i] [facility] BMI (Body Mass Index) 2020-08-25 00:00:00 24.7 kg/m2 [facility] BP Systolic 2020-08-25 00:00:00 146 mm[Hg] [facility] Body Weight 2020-08-25 00:00:00 144 [lb_av] [facility] BP Diastolic 2020-08-18 00:00:00 86 mm[Hg] [facility] Height 2020-08-18 00:00:00 64 [in_i] [facility] BMI (Body Mass Index) 2020-08-18 00:00:00 24.6 kg/m2 [facility] [facility] BP Systolic 2020-08-18 00:00:00 121 mm[Hg] [facility] Body Weight 2020-08-18 00:00:00 143.6 [lb_av] [facility] BP Diastolic 2020-08-11 00:00:00 70 mm[Hg] [facility] Height 2020-08-11 00:00:00 64 [in_i] [facility] BMI (Body Mass Index) 2020-08-11 00:00:00 25.3 kg/m2 [facility] BP Systolic 2020-08-11 00:00:00 118 mm[Hg] [facility] Body Weight 2020-08-11 00:00:00 147.6 [lb_av] [facility] BP Diastolic 2020-08-04 00:00:00 81 mm[Hg] [facility] Height 2020-08-04 00:00:00 64 [in_i] [facility] BMI (Body Mass Index) 2020-08-04 00:00:00 25.4 kg/m2 [facility] BP Systolic 2020-08-04 00:00:00 135 mm[Hg] [facility] Body Weight 2020-08-04 00:00:00 148 [lb_av] [facility] BP Diastolic 2020-07-28 00:00:00 69 mm[Hg] [facility] Height 2020-07-28 00:00:00 64 [in_i] [facility] BMI (Body Mass Index) 2020-07-28 00:00:00 25.2 kg/m2 [facility] BP Systolic 2020-07-28 00:00:00 123 mm[Hg] [facility] Body Weight 2020-07-28 00:00:00 146.6 [lb_av] [facility] Height 2020-07-15 00:00:00 64 [in_i] [facility] BMI (Body Mass Index) 2020-07-15 00:00:00 25.2 kg/m2 [facility] Body Weight 2020-07-15 00:00:00 146.6 [lb_av] [facility] BP Diastolic 2020-06-29 00:00:00 74 mm[Hg] [facility] Height 2020-06-29 00:00:00 64 [in_i] [facility] BMI (Body Mass Index) 2020-06-29 00:00:00 24.5 kg/m2 [facility] BP Systolic 2020-06-29 00:00:00 134 mm[Hg] [facility] Body Weight 2020-06-29 00:00:00 142.9 [lb_av] [facility] Height 2020-05-27 00:00:00 64 [in_i] [facility] BMI (Body Mass Index) 2020-05-27 00:00:00 23.9 kg/m2 [facility] Body Weight 2020-05-27 00:00:00 139.4 [lb_av] [facility] BP Diastolic 2020-05-25 00:00:00 66 mm[Hg] [facility] Height 2020-05-25 00:00:00 64 [in_i] [facility] BMI (Body Mass Index) 2020-05-25 00:00:00 24.2 kg/m2 [facility] BP Systolic 2020-05-25 00:00:00 118 mm[Hg] [facility] Body Weight 2020-05-25 00:00:00 140.9 [lb_av] [facility] BP Diastolic 2020-05-08 00:00:00 58 mm[Hg] [facility] Height 2020-05-08 00:00:00 64 [in_i] [facility] BMI (Body Mass Index) 2020-05-08 00:00:00 23 kg/m2 [facility] BP Systolic 2020-05-08 00:00:00 116 mm[Hg] [facility] Body Weight 2020-05-08 00:00:00 134 [lb_av] [facility] BP Diastolic 2020-04-24 00:00:00 63 mm[Hg] [facility] Height 2020-04-24 00:00:00 64 [in_i] [facility] BMI (Body Mass Index) 2020-04-24 00:00:00 22.8 kg/m2 [facility] BP Systolic 2020-04-24 00:00:00 122 mm[Hg] [facility] Body Weight 2020-04-24 00:00:00 132.8 [lb_av] [facility] Procedures Procedure Date / Time Performed Performing Clinician Source DSU PRE-OP 2024-05-27 16:21:52 Doctor Unass igned, [place] [facility] CBC WITH DIFF 2024-04-05 09:19:00 Bj Fraire [facility] CENTRAL NEURAXIAL BLOCK 2024-04-04 08:14:00 Carito Hancock [facility] ADC ONLY - FERN TEST 2024-04-04 07:20:00 Bj Fraire [facility] CBC WITH DIFF 2024-04-04 06:58:00 Yee [facility] HEPATITIS B SURFACE ANTIGEN 2024-04-04 06:58:00 Bj Fraire [facility] HB ABO GROUPING 2024-04-04 06:58:00 Bj Fraire [facility] RHO (D) IMMUNE GLOBULIN 2024-04-04 06:58:00 Bj Fraire [facility] ADC OR [place] ONLY - RPR 2024-04-04 06:58:00 Rick Fraire [facility] HIV 1/2 AG-AB WITH REFLEX 2024-04-04 06:58:00 Rick Fraire [facility] POCT URINALYSIS W/O SPECIFIC GRAVITY 2024-04-02 00:00:00 Bj Fraire [facility] POCT URINALYSIS W/O SPECIFIC GRAVITY 2024-03-26 00:00:00 Bj Fraire [facility] DSU PRE-OP 2024-03-18 13:38:31 Doctor Unass igned, [place] [facility] >14 WEEKS US LIMITED 2024-03-06 23:41:21 Bj Fraire [facility] POCT URINALYSIS W/O SPECIFIC GRAVITY 2024-03-06 00:00:00 Bj Fraire [facility] POCT URINALYSIS W/O SPECIFIC GRAVITY 2024-02-28 00:00:00 Melchor Loaiza [facility] SECOND AND THIRD TRIMESTER ULTRASOUND 2024-02-20 20:47:00 Fraire Bj Jones [facility] POCT URINALYSIS W/O SPECIFIC GRAVITY 2024-02-14 00:00:00 YeeBj Robert [facility] POCT URINALYSIS W/O SPECIFIC GRAVITY 2024-01-09 00:00:00 Melchor Loaiza [facility] SECOND AND THIRD TRIMESTER ULTRASOUND 2023-12-07 20:17:20 YeeBj Robert [facility] POCT URINALYSIS W/O SPECIFIC GRAVITY 2023-12-07 00:00:00 FraireLovelyobinna Jones [facility] POCT URINALYSIS W/O SPECIFIC GRAVITY 2023-11-08 00:00:00 YeeBj Robert [facility] EXTERNAL PROVIDER RECORDS 2023-10-19 06:01:00 Do ctor Unassigned, [place] [facility] AUTHORIZATION TO RELEASE PHI TO [facility] 2023-10-11 06:01:00 Doctor Unassigned, [place] [facility] POCT TEST 2023-10-11 00:00:00 YeeLovelyobinna Jones [facility] POCT URINALYSIS W/O SPECIFIC GRAVITY 2023-10-11 00:00:00 YeeLovelyobinna Jones [facility] US FIRST TRIMESTER LESS THAN 14 WEEKS 2023-09-29 03:18:06 Bon Jeter [facility] URINALYSIS 2023-09-29 02:38:[address] [facility] [address] 2023-09-29 02:38:00 Bon Jeter [facility] POCT TEST 2023-09-29 02:33:00 Irene Jeter [facility] ASSIGNMENT OF BENEFITS 2023-09-29 02:20:18 Docto r Unassigned, [place] [facility] COMP. METABOLIC PANEL (33897) 2023-09-29 01:33:00 Bon Jeter [facility] TOTAL BETA HCG ASSAY 2023-09-29 01:33:00 Jane Jeter [facility] CBC WITH DIFF 2023-09-29 01:33:00 Bon Jeter [facility] NOTICE OF PRIVACY PRACTICES 2023-09-29 00:38:03 Doctor Unassigned, [place] [facility] CONSENT/REFUSAL FOR DIAGNOSIS AND TREATMENT 2023-09-29 00:37:36 Doctor Unassigned, [place] [facility] US, obstetric, limited 2021-10-27 00:00:00 [facility] US, obstetric, limited 2021-10-07 00:00:00 [facility] ULTRASOUND REPEAT 2021-09-10 00:00:00 [facility] US, obstetric, limited 2021-08-03 00:00:00 [facility] ULTRASOUND, UTERUS REAL TIME WITH IMAGE DOC, AND MATERNAL EVAL PLUS DETAILED ANATOMIC EXAMINATION, TRANSABDOMINAL APPROACH; SINGLE OR FIRST GESTATION 2021-07-06 00:00:00 [facility] US, obstetric, limited 2021-06-22 00:00:00 [facility] US, obstetric, limited 2020-07-28 00:00:00 [facility] US, obstetric, limited 2020-06-29 00:00:00 [facility] ULTRASOUND REPEAT 2020-05-25 00:00:00 [facility] ULTRASOUND, UTERUS REAL TIME WITH IMAGE DOC, AND MATERNAL EVAL PLUS DETAILED ANATOMIC EXAMINATION, TRANSABDOMINAL APPROACH; SINGLE OR FIRST GESTATION 2020-04-24 00:00:00 [facility] Plan of Care Planned Activity Planned Date Details Comments Source Diagnostic Test Pending 2021-11-18 00:00:00 urinalysis, dipstick [code = urinalysis, dipstick] [facility] Encounters Start Date/Time End Date/Time Encounter Type Admission Type Attending Clinicians Care Facility Care Department Encounter ID Source 2024-05-20 10:41:25 Outpatient BJ READ VIEN [facility]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 [id number] [facility] 2024-03-18 00:00:00 2024-10-19 07:18:20 Orders Only Doctor Unassigned, [place] Doctor Unassigned, [place] [facility] 1.2.840.114 350.1.13.10 4.2.7.2.686 [id number] [facility] 2024-05-27 00:00:00 2024-10-19 06:56:10 Orders Only Doctor Unassigned, [place] Doctor Unassigned, [place] [facility] 1.2.840.114 350.1.13.10 4.2.7.2.686 [id number] [facility] 2024-09-16 09:45:00 2024-09-16 09:45:00 Outpatient R BJ FRAIRE VIEN [facility] [id number] [facility] 2024-07-02 11:30:00 2024-07-02 11:30:00 Outpatient R MELCHOR LOAIZA [facility] [id number] [facility] 2024-06-19 00:00:00 2024-06-19 08:32:01 Telephone Bj Fraire [facility] 1..840.114 350.1.13.10 4.2.7.2.686 [id number] 134 [id number] [facility] 2024-05-27 09:00:00 2024-05-27 09:28:45 Outpatient R BJ FRAIRE VIEN [facility] [id number] [facility] 2024-05-27 09:00:00 2024-05-27 09:28:45 Office Visit Bj Fraire [facility] 1..840.114 350.1.13.10 4.2.7.2.686 [id number] 134 [id number] [facility] 2024-05-17 00:00:00 2024-05-17 08:31:29 Prep For Surgery Bj Fraire [facility] 1.2.840.114 350.1.13.10 4.2.7.2.686 [id number] 134 [id number] [facility] 2024-05-16 13:15:00 2024-05-16 14:49:28 Outpatient R BJ FRAIRE VIEN [facility] [id number] [facility] 2024-05-16 13:15:00 2024-05-16 14:49:28 Routine Visit jB Fraire [facility] 1.2.840.114 350.1.13.10 4.2.7.2.686 [id number] 134 [id number] [facility] 2024-05-14 13:00:00 2024-05-14 13:00:00 Out[facility] [id number] [facility] 2024-04-22 00:00:00 2024-04-22 16:06:08 Telephone Bj Fraire [facility] 1.2.840.114 350.1.13.10 4.2.7.2.686 [id number] 134 [id number] [facility] 2024-04-04 01:16:00 2024-04-05 15:15:00 Inpatient P [facility]J [facility] [id number] [facility] 2024-04-04 01:16:00 2024-04-05 15:15:00 Hospital Encounter Bj Fraire [facility] 1.840.114 350.1.13.10 4.2.7.2.686 [id number] [facility] 2024-04-04 02:50:00 2024-04-04 10:55:00 Anesthesia Event Art Hancock Jeffrey S [facility] 1.284.114 350.1.13.10 4.2.7.2.686 [id number] [facility] 2024-04-04 01:09:00 2024-04-04 01:25:00 Emergency X [facility] ERT [id number] [facility] 2024-04-02 15:30:00 2024-04-02 16:13:42 Outpatient R YEE BJ FRAIRE [facility] [id number] [facility] 2024-04-02 15:30:00 2024-04-02 16:13:42 Routine Visit Bj Fraire [facility] 1.2.840.114 350.1.13.10 4.2.7.2.686 [id number] 134 [id number] [facility] 2024-03-26 16:00:00 2024-03-26 16:32:45 Outpatient R YEE BJOBINNA FRAIRE [facility] [id number] [facility] 2024-03-26 16:00:00 2024-03-26 16:32:45 Routine Visit Bj Fraire [facility] 1.2.840.114 350.1.13.10 4.2.7.2.686 [id number] [facility] 2024-03-15 16:15:00 2024-03-15 16:15:00 Outpatient R MELCHOR LOAIZA [facility] [id number] [facility] 2024-03-06 15:30:00 2024-03-06 15:45:00 Telegraph Lineman Visit 2, Adc Lab Bj Fraire [facility] 1.2.840.114 350.1.13.10 4.2.7.2.686 [id number] [facility] 2024-03-06 15:00:00 2024-03-06 15:21:30 Outpatient R YEE BJOBINNA FRAIRE [facility] [id number] [facility] 2024-03-06 15:00:00 2024-03-06 15:21:30 Routine Visit Bj Fraire Robert [facility] 1..840.114 350.1.13.10 4.2.7.2.686 [id number] 134 [id number] [facility] 2024-02-28 16:00:00 2024-02-28 16:16:02 Outpatient R OLGAMELCHOR PEREA [facility] [id number] [facility] 2024-02-28 16:00:00 2024-02-28 16:16:02 Routine Visit Josse [facility] 1..840.114 350.1.13.10 4.2.7.2.686 [id number] 134 [id number] [facility] 2024-02-20 15:30:00 2024-02-20 15:42:36 Outpatient P BJ FRAIRE VIEN [facility] [id number] [facility] 2024-02-20 15:30:00 2024-02-20 15:42:36 Telegraph Lineman Visit Ultrasound, Logan Bj Fraire [facility] 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 [facility] 1..840.114 350.1.13.10 4.2.7.2.686 [id number] [facility] 2024-02-14 16:15:00 2024-02-14 16:19:14 Outpatient R BJ FRAIRE [facility] [id number] [facility] 2024-02-14 16:15:00 2024-02-14 16:19:14 Routine Visit Bj Fraire [facility] 1..840.114 350.1.13.10 4.2.7.2.686 [id number] [facility] 2024-01-31 11:00:00 2024-01-31 11:00:00 Outpatient R BJ FRAIRE [facility] [id number] [facility] 2024-01-22 20:40:00 2024-01-22 20:40:00 Outpatient R BEATRIZ BRIGGS [facility] [id number] [facility] 2024-01-09 11:15:00 2024-01-09 11:46:46 Outpatient R JOSSE MELCHOR [facility] [id number] [facility] 2024-01-09 11:15:00 2024-01-09 11:46:46 Routine [facility] 1..840.114 350.1.13.10 4.2.7.2.686 [id number] 134 [id number] [facility] 2024-01-08 09:30:00 2024-01-08 09:30:00 Outpatient R JAY MATIAS [facility] [id number] [facility] 2024-01-05 11:00:00 2024-01-05 11:00:00 Outpatient R SARTHAKCLINTON MELCHOR [facility] [id number] [facility] 2023-12-28 00:00:00 2023-12-28 00:00:00 Telephone Bj Fraire [facility] BUILDING 1..840.114 350.1.13.10 4.2.7.2.686 [id number] 134 [id number] [facility] 2023-12-11 10:30:00 2023-12-11 11:46:12 Outpatient R BJ FRAIRE [facility] [id number] [facility] 2023-12-11 10:30:00 2023-12-11 10:45:00 Telegraph Lineman Visit 2, [facility] 1..840.114 350.1.13.10 4.2.7.2.686 [id number] [facility] 2023-12-08 10:30:00 2023-12-08 10:30:00 Outpatient R [facility] [id number] [facility] 2023-12-07 14:00:00 2023-12-07 14:41:44 Outpatient P BJ FRAIRE [facility] [id number] [facility] 2023-12-07 14:00:00 2023-12-07 14:41:44 Telegraph Lineman Visit Ultrasound, Kevin-Tito Bj Fraire [facility] 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 [facility] 1.2.840.114 350.1.13.10 4.2.7.2.686 [id number] [facility] 2023-12-07 10:30:00 2023-12-07 10:57:15 Routine Visit Bj Fraire [facility] 1.2.840.114 350.1.13.10 4.2.7.2.686 [id number] 134 [id number] [facility] 2023-12-01 00:00:00 2023-12-01 00:00:00 Telephone Bj Fraire [facility] BUILDING 1.2.840.114 350.1.13.10 4.2.7.2.686 [id number] 134 [id number] [facility] 2023-11-16 11:00:00 2023-11-16 11:00:00 Outpatient P ROCHELLE CASTORENA [facility] [id number] [facility] 2023-11-09 00:00:00 2023-11-09 00:00:00 Telephone Bj Fraire [facility] BUILDING 1.2.840.114 350.1.13.10 4.2.7.2.686 [id number] [facility] 2023-11-08 10:45:00 2023-11-08 10:53:35 Outpatient R BJ FRAIRE [facility] [id number] [facility] 2023-11-08 10:45:00 2023-11-08 10:53:35 Routine Visit Bj Fraire [facility] 1.2.840.114 350.1.13.10 4.2.7.2.686 [id number] 134 [id number] [facility] 2023-10-30 00:00:00 2023-10-30 00:00:00 Telephone Bj Fraire [facility] 1.2.840.114 350.1.13.10 4.2.7.2.686 [id number] 134 [id number] [facility] 2023-10-23 00:00:00 2023-10-23 00:00:00 Telephone Bj Fraire [facility] 1.2.840.114 350.1.13.10 4.2.7.2.686 [id number] 134 [id number] [facility] 2023-10-20 00:00:00 2023-10-20 00:00:00 Telephone Bj Fraire [facility] 1.2.840.114 350.1.13.10 4.2.7.2.686 [id number] 134 [id number] [facility] 2023-10-19 00:00:00 2023-10-19 00:00:00 Orders Only Doctor Unassigned, [place] [facility] 1.2.840.114 350.1.13.10 4.2.7.2.686 [id number] [facility] 2023-10-16 00:00:00 2023-10-16 00:00:00 Telephone Bj Fraire [facility] 1.2.840.114 350.1.13.10 4.2.7.2.686 [id number] 134 [id number] [facility] 2023-10-12 09:15:00 2023-10-12 09:30:00 Telegraph Lineman Visit 2, Adc Lab Bj Fraire [facility] BUILDING 1.2.840.114 350.1.13.10 4.2.7.2.686 [id number] [facility] 2023-10-12 09:15:00 2023-10-12 09:15:00 Outpatient R BJ FRAIRE [facility] [id number] [facility] 2023-10-12 00:00:00 2023-10-12 00:00:00 Telephone Bj Fraire [facility] 1.2.840.114 350.1.13.10 4.2.7.2.686 [id number] [facility] 2023-10-11 10:00:00 2023-10-11 10:38:10 Outpatient R BJ FRAIRE [facility] [id number] [facility] 2023-10-11 10:00:00 2023-10-11 10:38:10 Initial Visit Bj Fraire [facility] 1.2.840.114 350.1.13.10 4.2.7.2.686 [id number] 134 [id number] [facility] 2023-10-11 00:00:00 2023-10-11 00:00:00 Orders Only Doctor Unassigned, [place] [facility] 1.2.840.114 350.1.13.10 4.2.7.2.686 [id number] [facility] 2023-09-28 19:05:00 2023-09-28 23:49:00 Emergency X BON JETER [facility] ERT [id number] [facility] 2023-09-28 19:05:00 2023-09-28 23:49:00 Emergency [place] [facility] 1.2.840.114 350.1.13.10 4.2.7.2.686 [id number] [facility] 2021-11-18 11:48:00 2021-11-18 11:48:00 Outpatient G_Pappas [facility] [id number] [facility] 2021-11-18 00:00:00 2021-11-18 00:00:00 Octavio August MD: [address] [place] [address] [place], [place] [id number] , Ph. [phone] [facility] [id number] [facility] 2021-11-11 11:11:00 2021-11-11 11:11:00 Outpatient OCTAVIO OQUENDO [facility] [id number] [facility] 2021-11-11 10:29:00 2021-11-11 10:29:00 Outpatient G_[place] [id number] [facility] 2021-11-11 00:00:00 2021-11-11 00:00:00 Octavio August MD: [address] [id number] , Ph. [phone] [facility] [id number] [facility] 2021-11-04 09:57:00 2021-11-04 09:57:00 Outpatient G_Pappas [facility] [id number] [facility] 2021-11-04 00:00:00 2021-11-04 00:00:00 Octavio August MD: [address] [place] [address] , Ph. [phone] [facility] [id number] [facility] 2021-10-27 11:35:00 2021-10-27 11:35:00 Outpatient G_[place] [id number] [facility] 2021-10-27 00:00:00 2021-10-27 00:00:00 BHAVESH Espinosa-BC: 600 [facility] [address] [place] [address] , Ph. [phone] [facility] [id number] [facility] 2021-10-07 02:42:00 2021-10-07 02:42:00 Outpatient G_Pappas [facility] [id number] [facility] 2021-10-07 00:00:00 2021-10-07 00:00:00 Octavio August MD: [address] [address] , Ph. [phone] [facility] [id number] [facility] 2021-09-10 09:34:00 2021-09-10 09:34:00 Outpatient G_Pappas [facility] [id number] [facility] 2021-09-10 09:16:00 2021-09-10 09:16:00 Outpatient OCTAVIO OQUENDO [facility] [id number] [facility] 2021-09-10 00:00:00 2021-09-10 00:00:00 Octavio Augsut MD: [address] [address] , Ph. [phone] [facility] [id number] [facility] 2021-09-02 09:30:00 2021-09-02 09:30:00 Outpatient G_Pappas [facility] [id number] [facility] 2021-08-04 12:01:00 2021-08-04 12:01:00 Outpatient G_Pappas [facility] MMG [id number] [facility] 2021-08-03 10:38:00 2021-08-03 10:38:00 Outpatient G_Pappas [facility] MMG [id number] [facility] 2021-08-03 00:00:00 2021-08-03 00:00:00 Octavio August MD: [address] [address] , Ph. [phone] MM[facility] [place] - [facility]YN [id number] [facility] 2021-07-06 04:16:00 2021-07-06 04:16:00 Outpatient G_Pappas [facility] [id number] [facility] 2021-07-06 00:00:00 2021-07-06 00:00:00 Octavio August MD: [address] [address] , Ph. [phone] [facility] [place] - OBGYN [id number] [facility] 2021-06-22 16:27:00 2021-06-22 16:27:00 Outpatient KELLY CHRISTIANSON [facility] [id number] [facility] 2021-06-22 03:19:00 2021-06-22 03:19:00 [place] [id number] [facility] 2021-06-22 00:00:00 2021-06-22 00:00:00 Kelly Tee [facility]-: [address] [address] , Ph. [phone] [facility] [id number] [facility] 2021-06-16 03:35:00 2021-06-16 03:35:00 Outpatient G_Pappas [facility] [id number] [facility] 2020-09-07 03:17:00 2020-09-07 03:17:00 Outpatient G_Pappas [facility] MMG [id number] [facility] 2020-08-31 04:30:00 2020-09-01 07:13:00 Inpatient OCTAVIO OQUENDO [facility] [id number] [place] [facility] 2020-08-25 02:56:00 2020-08-25 02:56:00 Outpatient G_Pappas [facility] MMG [id number] [facility] 2020-08-25 02:56:00 2020-08-25 02:56:00 Outpatient G_Pappas [facility] MMG [id number] [facility] 2020-08-25 00:00:00 2020-08-25 00:00:00 Octavio August MD: [address] [address] , Ph. [phone] [facility] [place] - [facility]YN [id number] [facility] 2020-08-18 15:11:00 2020-08-18 15:11:00 Outpatient OCTAVIO OQUENDO [facility] [id number] [place] [facility] 2020-08-18 03:25:00 2020-08-18 03:25:00 Outpatient G_Pappas [facility] MMG [id number] [facility] 2020-08-18 03:25:00 2020-08-18 03:25:00 Outpatient G_Pappas [facility] MMG [id number] [facility] 2020-08-18 00:00:00 2020-08-18 00:00:00 Octavio August MD: [address] [address] , Ph. [phone] [facility] [place] - [facility] [id number] [facility] 2020-08-11 02:39:00 2020-08-11 02:39:00 Outpatient G_Pappas [facility] MMG [id number] [facility] 2020-08-11 02:39:00 2020-08-11 02:39:00 Outpatient G_Pappas MMG MMG [id number] [facility] 2020-08-11 00:00:00 2020-08-11 00:00:00 Octavio August MD: 600 [facility] [address] [place] [address] , Ph. [phone] MMG [facility] [place] - OBGYN [id number] [facility] 2020-08-04 02:29:00 2020-08-04 02:29:00 Outpatient G_Pappas MMG MMG [id number] [facility] 2020-08-04 02:29:00 2020-08-04 02:29:00 Outpatient G_Pappas MMG MMG [id number] [facility] 2020-08-04 02:29:00 2020-08-04 02:29:00 Outpatient G_Pappas MMG MMG [id number] [facility] 2020-08-04 00:00:00 2020-08-04 00:00:00 Octavio August MD: [address] [address] , Ph. [phone] MMG [facility] [place] - OBGYN [id number] [facility] 2020-07-28 04:06:00 2020-07-28 04:06:00 Outpatient G_Pappas MMG MMG [id number] [facility] 2020-07-28 00:00:00 2020-07-28 00:00:00 Octavio August MD: [address] [address] , Ph. [phone] MMG [facility] [place] - OBGYN [id number] [facility] 2020-07-22 02:26:00 2020-07-22 02:26:00 Outpatient Rutledge_L MMG MMG [id number] [facility] 2020-07-15 05:02:00 2020-07-15 05:02:00 Outpatient Rutledge_L MMG MMG [id number] [facility] 2020-07-15 00:00:00 2020-07-15 00:00:00 Rhonda Candelario MD: [address] [address] , Ph. [phone] MMG [facility] [place] - OBGYN [id number] [facility] 2020-06-30 01:33:00 2020-06-30 01:33:00 Outpatient Rutledge_L MMG MMG [id number] [facility] 2020-06-29 02:17:00 2020-06-29 02:17:00 Outpatient Rutledge_L MMG MMG [id number] [facility] 2020-06-29 02:17:00 2020-06-29 02:17:00 Outpatient Rutledge_L MMG MMG [id number] [facility] 2020-06-29 00:00:00 2020-06-29 00:00:00 Rhonda Candelario MD: 600 [facility] [address], [place] [address] , Ph. [phone] MM[facility] [place] - OBGYN [id number] [facility] 2020-06-26 03:40:00 2020-06-26 03:40:00 Outpatient G_Pappas MMG MMG [id number] [facility] 2020-05-27 11:03:00 2020-05-27 11:03:00 Outpatient OCTAVIO OQUENDO [facility] [id number] [facility] 2020-05-27 03:53:00 2020-05-27 03:53:00 Outpatient G_Pappas MMG MMG [id number] [facility] 2020-05-27 00:00:00 2020-05-27 00:00:00 Octavio August MD: 600 [facility] [address], [place] [address] , Ph. [phone] [facility] [id number] [facility] 2020-05-25 09:54:00 2020-05-25 09:54:00 Outpatient OCTAVIO OQUENDO [facility] [id number] [facility] 2020-05-25 09:33:00 2020-05-25 09:33:00 Outpatient G_Pappas MMG MMG [id number] [facility] 2020-05-25 00:00:00 2020-05-25 00:00:00 Octavio August MD: [address] [place] [id number] , Ph. [phone] [facility] [id number] [facility] 2020-05-09 11:09:00 2020-05-09 11:09:00 Outpatient G_Pappas MMG MMG [id number] [facility] 2020-05-08 03:38:00 2020-05-08 03:38:00 Outpatient G_Pappas MMG MMG [id number] [facility] 2020-05-08 00:00:00 2020-05-08 00:00:00 Octavio August MD: [address] [place] [id number] , Ph. [phone] MMG [facility] [place] - OBGYN [id number] [facility] 2020-04-26 03:18:00 2020-04-26 03:18:00 Outpatient G_Pappas MMG MMG [id number] [facility] 2020-04-24 15:33:00 2020-04-24 15:33:00 Outpatient OCTAVIO OQUENDO [facility] [id number] [facility] 2020-04-24 03:37:00 2020-04-24 03:37:00 Outpatient G_Pappas MMG MMG [id number] [facility] 2020-04-24 00:00:00 2020-04-24 00:00:00 Octavio August MD: [address] [place] [address] , Ph. [phone] [facility] [id number] [facility] 2020-04-13 01:38:00 2020-04-13 01:38:00 Outpatient G_Pappas MMG [facility] 08 [facility] 2020-04-13 01:38:00 2020-04-13 01:38:00 Outpatient G_Pappas MMG [facility] 20 [facility] Results Test Description Test Time Test Comments Results Resul t Comments Source DSU PRE-OP 2024-05-27 16:21:52 Ordered by an unspecified provider. [facility] [id number] 18:19:09 * Test Item Value Reference Range Interpretation Comme nts HBsAg Semi-Quantitative (veronica t code = 5195-3) 0.09 Negative [facility] StationRHO (D) IMMUNE [id number] 16:53:15* Test Item Value Reference Range Interpretation Comme nts RHIG CANDIDATE? (test code = 5188) No- see comment Patient is not a candidate for RhIg- Patient is Rh Positive.Performed at [facility] Laboratory Services - [facility] Blood [address] [place] [address]Khfd Free: [phone] No. [id number] [facility] StationHIV 1/2 Ag-Ab with [id number] 11:18:27* Test Item Value Reference Range Interpretation Comme nts HIV Semi-quantitative (test code = 65726-1) 0.21 Negative LESIA (test code = LESIA) Non-reactive for HIV-1 antigen and HIV-1/HIV-2 antibodies. ?No laboratory evidence of HIV infection. ?Repeat in 2-4 weeks if acute HIV infection is suspected. [facility] StationADC OR [place] ONLY - [id number] 10:32:16* Test Item Value Reference Range Interpretation Comme nts RPR (Qualitative) (test code = 90312-5) Nonreactive Nonreactive Lab Interpretation (test cod e = 15001-9) Normal [facility] Station[facility] Neur[facility] [id number] 08:14:00 Art Hancock MD ? ? 04/04/2024 ?3:16 AM Central Neuraxial Block Date/Time: 04/04/2024 3:14 AM Performed by: Art Hancock, MDAuthorized by: Art Hancock MD ?Patient Location: OBReason for Block: Labor analgesia, Patient request and OB requestStaff: ?Anesthesiologist: Art Hancock MD ?Performed by: anesthesiologistPreanesthetic Checklist: patient identified, IV checked, risks and benefits explained, monitors and equipment checked, timeout performed, pre-op evaluation, surgical consent,site marked, ob/surgical consent approval, ob/surgical consent verified and anesthesia consentProcedure: ?Type of Neuraxial: Continuous and Epidural ? Sterility Prep cap, drape, gloves, hand hygiene and mask ? ?Sedation Level no sedation ?Patient Position: sitting ?Prep: Betadine ? ?Monitoring: continuous pulse ox, heart rate / toco, heart rate and NIBP ?Location: lumbar (1-5) ?Lumbar: L3-L4 ?Approach: midline ? ?Technique: VELMA saline ?Guidance with: landmark technique}Epidural/Spinal [place] and/or Catheter: ?Epidural/Spinal Kit: BBraun ?Needle Type: Tuohy ?Needle Gauge: 17 G ?Needle Length: 3.5 in (8.89 cm) ?Needle Insertion Depth: 4.2 ?Catheter Type: multiport ? ?Catheter Size: 19 G ? ?Catheter at Skin Depth: 9 ?Number of Attempts: 1 ?Test Dose: lidocaine 1.5% with epinephrine 1-to-200,000 and negative ? ?Dose: 3 ccAssessment: ?Sensory Level: above T10 ?Thoracic: T8 ?Block Outcome: patient tolerated procedure well ? ?Procedure Assessment: patient tolerated procedure well withno complicationsNotes: ? Negative to parasthesias,heme,csf.[facility] with Differential 2024-04-04 07:13:31* Test Item Value Reference Range Interpretation Comme nts WBC (test code = 6690-2) 14.08 4.30-11.10 H RBC (test code = 789-8) 3.61 3.93-5.25 L HGB (test code = 718-7) 10.9 g/dL 11.6-15.0 L HCT (test code = 4544-3) 31.7 % 35.7-45.2 L MCV (test code = 787-2) 87.8 fL 80.6-95.5 MCH (test code = 785-6) 30.2 pg 25.9-32.8 MCHC (test code = 786-4) 34.4 g/dL 31.6-35.1 RDW-SD (test code = 00859-7) 39.7 fL 39.0-49.9 RDW-CV (test code = 788-0) 12.5 % 12.0-15.5 PLT (test code = 777-3) 261 166-358 MPV (test code = 93417-1) 11.3 fL 9.5-12.9 NRBC/100 WBC (test code = 6877063059) 0.0 0.0-10.0 NRBC x10^3 (test code = 8157928314) See_Comment [Automated messa ge] The system which generated this result transmitted reference range: 10*3/?L. The reference range was not used to interpret this result as normal/abnormal. GRAN MAT (NEUT) % (test code = 770-8) 69.3 % IMM GRAN % (test code = 0455297970) 0.80 % LYMPH % (test code = 736-9) 23.2 % MONO % (test code = 5905-5) 5.0 % EOS % (test code = 713-8) 1.5 % BASO % (test code = 706-2) 0.2 % GRAN MAT x10^3(ANC) (test code = 6572584042) 9.77 10*3/uL 1.88-7.09 H IMM GRAN x10^3 (test code = 8383461382) 0.11 10*3/uL 0.00-0.06 H LYMPH x10^3 (test code = 731-0) 3.26 10*3/uL 1.32-3.29 MONO x10^3 (test code = 742-7) 0.70 10*3/uL 0.33-0.92 EOS x10^3 (test code = 711-2) 0.21 10*3/uL 0.03-0.39 BASO x10^3 (test code = 704-7) 0.03 10*3/uL 0.01-0.07 Lab Interpretation (test code = 07464-9) Abnormal [facility] StationType and Screen - ONCE [id number] 07:11:00 * Test Item Value Reference Range Interpretation Comme nts ABO & RH (test code = 20) B POSITIVE IAT (test code = 1185) Negative [facility] Urinalysis w/o Specific [id number] 20:41:00* Test Item Value Reference Range Interpretation Comme nts POCT PH U (test code = 3254) n/a 5-8 POCT U LEUK EST (test code = 3263) n/a Negative - Negative POCT U NIT (test code = 3262) n/a Negative - Negati ve POCT U PROT (test code = 3259) Negative Negative - Negat karen POCT U GLU (test code = 3256) Normal Negative - Negati ve POCT U KETONE (test code = 3258) n/a Negative - Neg ative POCT U BLD (test code = 3257) n/a Negative - Negati ve [facility] Urinalysis w/o Specific [id number] 21:20:00* Test Item Value Reference Range Interpretation Comme nts POCT PH U (test code = 3254) n/a 5-8 POCT U LEUK EST (test code = 3263) n/a Negative - Negative POCT U NIT (test code = 3262) n/a Negative - Negati ve POCT U PROT (test code = 3259) Negative Negative - Negat karen POCT U GLU (test code = 3256) Normal Negative - Negati ve POCT U KETONE (test code = 3258) n/a Negative - Neg ative POCT U BLD (test code = 3257) n/a Negative - Negati ve [facility] StationDSU [id number] 13:38:31Ordered by an unspecified provider.[facility] StationPOIA Urinalysis w/o Specific [id number] 20:04:00* Test Item Value Reference Range Interpretation Comme nts POCT PH U (test code = 3254) n/a 5-8 POCT U LEUK EST (test code = 3263) n/a Negative - Negative POCT U NIT (test code = 3262) n/a Negative - Negati ve POCT U PROT (test code = 3259) negative Negative - Negat karen POCT U GLU (test code = 3256) negative Negative - Negati ve POCT U KETONE (test code = 3258) n/a Negative - Neg ative POCT U BLD (test code = 3257) na/ Negative - Negati ve [facility] Urinalysis w/o Specific [id number] 21:38:00* Test Item Value Reference Range Interpretation Comme nts POCT PH U (test code = 3254) n.a 5-8 POCT U LEUK EST (test code = 3263) n.a Negative - Negative POCT U NIT (test code = 3262) n.a Negative - Negati ve POCT U PROT (test code = 3259) negative Negative - Negat karen POCT U GLU (test code = 3256) negative' Negative - Negati ve POCT U KETONE (test code = 3258) n.a Negative - Negative POCT U BLD (test code = 3257) n.a Negative - Negati ve [facility] Urinalysis w/o Specific [id number] 20:59:00* Test Item Value Reference Range Interpretation Comme nts POCT PH U (test code = 3254) n/a 5-8 POCT U LEUK EST (test code = 3263) n/a Negative - Negative POCT U NIT (test code = 3262) n/a Negative - Negati ve POCT U PROT (test code = 3259) negative Negative - Negat karen POCT U GLU (test code = 3256) negative Negative - Negati ve POCT U KETONE (test code = 3258) n/a Negative - Neg ative POCT U BLD (test code = 3257) n/a Negative - Negati ve [facility] Urinalysis w/o Specific [id number] 16:45:00* Test Item Value Reference Range Interpretation Comme nts POCT PH U (test code = 3254) n/a 5-8 POCT U LEUK EST (test code = 3263) n/a Negative - N egative POCT U NIT (test code = 3262) n/a Negative - Negati ve POCT U PROT (test code = 3259) Trace Negative - Negat karen POCT U GLU (test code = 3256) Normal Negative - Negati ve POCT U KETONE (test code = 3258) n/a Negative - Neg ative POCT U BLD (test code = 3257) n/a Negative - Negati ve [facility] Urinalysis w/o Specific [id number] 15:35:00* Test Item Value Reference Range Interpretation Comme nts POCT PH U (test code = 3254) n/a 5-8 POCT U LEUK EST (test code = 3263) n/a Negative - Negative POCT U NIT (test code = 3262) n/a Negative - Negati ve POCT U PROT (test code = 3259) negative Negative - Negat karen POCT U GLU (test code = 3256) negative Negative - Negati ve POCT U KETONE (test code = 3258) n/a Negative - Neg ative POCT U BLD (test code = 3257) n/a Negative - Negati ve [facility] Urinalysis w/o Specific [id number] 16:28:00* Test Item Value Reference Range Interpretation Comme nts POCT PH U (test code = 3254) n/a 5-8 POCT U LEUK EST (test code = 3263) n/a Negative - N egative POCT U NIT (test code = 3262) n/a Negative - Negati ve POCT U PROT (test code = 3259) neg Negative - Negat karen POCT U GLU (test code = 3256) neg Negative - Negati ve POCT U KETONE (test code = 3258) n/a Negative - Neg ative POCT U BLD (test code = 3257) n/a Negative - Negati ve [facility] [id number] 16:09:00* Test Item Value Reference Range Interpretation Comme nts POCT PREG (test code = 1605) Positive On board controls acceptable with C Line (test code = 3574) Yes POCT PREG LOT # (test code = 3575) POCT PREG TEST DATE ( test code = 3576) [facility] Urinalysis w/o Specific [id number] 16:09:00* Test Item Value Reference Range Interpretation Comme nts POCT PH U (test code = 3254) n/a 5-8 POCT U LEUK EST (test code = 3263) n/a Negative - Negative POCT U NIT (test code = 3262) n/a Negative - Negati ve POCT U PROT (test code = 3259) Negative Negative - Negat karen POCT U GLU (test code = 3256) Normal Negative - Negati ve POCT U KETONE (test code = 3258) n/a Negative - Neg ative POCT U BLD (test code = 3257) n/a Negative - Negati ve [facility] [id number] 16:09:00* Test Item Value Reference Range Interpretation Comme nts POCT PREG (test code = 1605) Positive On board controls acceptable with C Line (test code = 3574) Yes POCT PREG LOT # (test code = 3575) POCT PREG TEST DATE ( test code = 3576) [facility] Urinalysis w/o Specific [id number] 16:09:00* Test Item Value Reference Range Interpretation Comme nts POCT PH U (test code = 3254) n/a 5-8 POCT U LEUK EST (test code = 3263) n/a Negative - Negative POCT U NIT (test code = 3262) n/a Negative - Negati ve POCT U PROT (test code = 3259) Negative Negative - Negat karen POCT U GLU (test code = 3256) Normal Negative - Negati ve POCT U KETONE (test code = 3258) n/a Negative - Neg ative POCT U BLD (test code = 3257) n/a Negative - Negati ve [facility] StationUS FIRST TRIMESTER LESS THAN 14 [id number] 04:13:57Ordering physician: BON JETER Clinical indication: Vaginal bleeding Comparison: None Technique: First trimester obstetrical ultrasound Technical quality: Adequate Findings: There is a single i ntrauterine fetus. cardiac activity is documented,with a heart rate of 165 bpm. A crown-rump length of 62.72 mm indicates anestimated gestational age of 12 weeks 5 days. The anterior/fundal placentais unremarkable in appearance. Amniotic fluid volume is subjectively normalfor gestational age.The cervix is closed and cervical length is normal at3.1 cm. There is a small corpus luteum of the right ovary. Color Dopplerdemonstrates blood flow within this ovary. The left ovary is notvisualized.[facility] StationTOTAL BETA HCG [id number] 02:54:59* Test Item Value Reference Range Interpretation Comme nts BETA HCG (test code = 4963262587) 88853.00 See_Comment [Automated Acteavoa ge] The system which generated this result transmitted reference range: Non- female and male patients: <5 mIU/mL. The reference range was not used to interpret this result as normal/abnormal. LESIA (test code = LESIA) Gestational Age ?Range (mIU/mL) 1-10 ?Weeks ?26-94554491-19 Weeks ?79148-47472443-84 Weeks ?0261-10899597-70 Weeks ?5541-670855 Biotin has been reported to cause a negative bias, interpret results relative to patient's use of biotin. [facility] StationType and Screen - ONCE [id number] 02:53:00* Test Item Value Reference Range Interpretation Comme nts ABO & RH (test code = 20) B POSITIVE IAT (test code = 1185) Negative [facility] StationPOCT [id number] 02:33:00* Test Item Value Reference Range Interpretation Comme nts POCT PREG (test code = 1605) Positive On board controls acceptable with C Line (test code = 3574) Yes Lab Interpretation (test cod e = 32142-0) Normal [facility] StationCOMP. METABOLIC PANEL (85547)2023-09-29 02:11:06* Test Item Value Reference Range Interpretation Comme nts NA (test code = 2217773628) 134 mmol/L 135-145 L K (test code = 6259140262) 3.8 mmol/L 3.5-5.0 CL (test code = 7187307602) 105 mmol/L 98-108 CO2 TOTAL (test code = 0257665475) 23 mmol/L 23-31 AGAP (test code = 7288136901) 6 2-16 BUN (test code = 8251602963) 9 mg/dL 7-23 GLUCOSE (test code = 1413597068) 78 mg/dL 70-110 CREATININE (test code = 7768246106) 0.34 mg/dL 0.50-1.04 L TOTAL BILI (test code = 4506074040) 0.4 mg/dL 0.1-1.1 CALCIUM (test code = 6998866008) 9.2 mg/dL 8.6-10.6 T PROTEIN (test code = 0885110208) 7.4 g/dL 6.3-8.2 ALBUMIN (test code = 0642353003) 4.3 g/dL 3.5-5.0 ALK PHOS (test code = 0066612173) 83 U/L 34-122 ALTv (test code = 1742-6) 27 U/L 5-35 AST(SGOT) (test code = 7861356347) 35 U/L 13-40 eGFR (test code = 48889-0) 140.4 mL/min/1.73m2 CKD-EPI eGFR (2020). Assuming creatinine has been stable day-to-day for at least three months, the eGFR indicates Category G1 (>= 90 mL/min/1.73 m2) Lab Interpretation (test code = 02801-1) Abnormal [facility] WITH [id number] 01:48:47* Test Item Value Reference Range Interpretation Comme nts WBC (test code = 6690-2) 11.95 See_Comment H [Automated Acteavoa Run [employer] Errands] The system which generated this result transmitted reference range: 4.30 - 11.10 10*3/?L. The reference range was not used to interpret this result as normal/abnormal. RBC (test code = 789-8) 4.30 See_Comment [Automated Acteavoa [employer]] The system which generated this result transmitted reference range: 3.93 - 5.25 10*6/?L. The reference range was not used to interpret this result as normal/abnormal. HGB (test code = 718-7) 12.4 g/dL 11.6-15.0 HCT (test code = 4544-3) 35.6 % 35.7-45.2 L MCV (test code = 787-2) 82.8 fL 80.6-95.5 MCH (test code = 785-6) 28.8 pg 25.9-32.8 MCHC (test code = 786-4) 34.8 g/dL 31.6-35.1 RDW-SD (test code = 40256-4) 37.3 fL 39.0-49.9 L RDW-CV (test code = 788-0) 12.3 % 12.0-15.5 PLT (test code = 777-3) 271 See_Comment [Automated messa ge] The system which generated this result transmitted reference range: 166 - 358 10*3/?L. The reference range was not used to interpret this result as normal/abnormal. MPV (test code = 47695-6) 10.8 fL 9.5-12.9 NRBC/100 WBC (test code = 8686597347) 0.0 See_Comment [Automated Acertiv ssage] The system which generated this result transmitted reference range: 0.0 - 10.0 /100 WBCs. The reference range was not used to interpret this result as normal/abnormal. NRBC x10^3 (test code = 9076465427) See_Comment [Automated messa ge] The system which generated this result transmitted reference range: 10*3/?L. The reference range was not used to interpret this result as normal/abnormal. GRAN MAT (NEUT) % (test code = 770-8) 68.7 % IMM GRAN % (test code = 9833766511) 0.50 % LYMPH % (test code = 736-9) 23.8 % MONO % (test code = 5905-5) 5.6 % EOS % (test code = 713-8) 1.1 % BASO % (test code = 706-2) 0.3 % GRAN MAT x10^3(ANC) (test code = 6020739180) 8.21 10*3/uL 1.88-7.09 H IMM GRAN x10^3 (test code = 8833771786) 0.06 10*3/uL 0.00-0.06 LYMPH x10^3 (test code = 731-0) 2.85 10*3/uL 1.32-3.29 MONO x10^3 (test code = 742-7) 0.67 10*3/uL 0.33-0.92 EOS x10^3 (test code = 711-2) 0.13 10*3/uL 0.03-0.39 BASO x10^3 (test code = 704-7) 0.03 10*3/uL 0.01-0.07 Lab Interpretation (test code = 64841-6) Abnormal [facility] StationUrinalysis macro (dipstick) panel - Urine 2021-11-18 11:18:00* Test Item Value Reference Range Interpretation Comme nts Leukocytes (test code = Leukocytes) Trace Nitrite (test code = Nitrite) negative Urobilinogen (test code = Urobilinogen) .2 Protein (test code = Protein) Negative pH (test code = pH) 7.0 Blood (test code = Blood) Negative Specific [place] (test code = Specific [place]) 1.010 Ketone (test code = Ketone) Negative Bilirubin (test code = Bilirubin) Negative Glucose (test code = Glucose) Negative Appearance (test code = Appearance) Clear Color (test code = Color) Yellow [facility] RNA [Presence] in Respiratory specimen by JORGITO with probe mxnnvlqrx9560-01-79 10:24:9430427-0[facility] GroupUrinalysis macro (dipstick) panel - [id number] 10:01:29* Test Item Value Reference Range Interpretation Comme nts Leukocytes (test code = Leukocytes) Moderate Nitrite (test code = Nitrite) negative Urobilinogen (test code = Urobilinogen) .2 Protein (test code = Protein) Negative pH (test code = pH) 6.0 Blood (test code = Blood) Negative Specific [place] (test code = Specific [place]) 1.010 Ketone (test code = Ketone) Negative Bilirubin (test code = Bilirubin) Negative Glucose (test code = Glucose) Negative Appearance (test code = Appearance) Clear Color (test code = Color) Yellow [facility]Ur[facility] macro (dipstick) panel - [id number] 09:16:40* Test Item Value Reference Range Interpretation Comme nts Leukocytes (test code = Leukocytes) Trace Nitrite (test code = Nitrite) negative Urobilinogen (test code = Urobilinogen) .2 Protein (test code = Protein) Negative pH (test code = pH) 6.5 Blood (test code = Blood) Negative Specific [place] (test code = Specific [place]) 1.010 Ketone (test code = Ketone) Negative Bilirubin (test code = Bilirubin) Negative Glucose (test code = Glucose) Negative Appearance (test code = Appearance) Clear Color (test code = Color) Yellow [facility], vaginal/rectal, streptococcus group [id number] 00:00:00* Test Item Value Reference Range Interpretation Comme nts group B strep (test code = g roup B strep) negative [facility] GroupUrinalysis macro (dipstick) panel - [id number] 11:03:10* Test Item Value Reference Range Interpretation Comme nts Leukocytes (test code = Leukocytes) Trace Nitrite (test code = Nitrite) negative Urobilinogen (test code = Urobilinogen) .2 Protein (test code = Protein) Negative pH (test code = pH) 7.0 Blood (test code = Blood) Negative Specific [place] (test code = Specific [place]) 1.020 Ketone (test code = Ketone) Negative Bilirubin (test code = Bilirubin) Negative Glucose (test code = Glucose) Negative Appearance (test code = Appearance) Clear Color (test code = Color) Yellow [facility] GroupUrinalysis macro (dipstick) panel - [id number] 14:10:03* Test Item Value Reference Range Interpretation Comme nts Leukocytes (test code = Leukocytes) Trace Nitrite (test code = Nitrite) negative Urobilinogen (test code = Urobilinogen) .2 Protein (test code = Protein) Negative pH (test code = pH) 6.5 Blood (test code = Blood) Negative Specific [place] (test code = Specific [place]) 1.005 Ketone (test code = Ketone) Negative Bilirubin (test code = Bilirubin) Negative Glucose (test code = Glucose) Negative Appearance (test code = Appearance) Clear Color (test code = Color) Yellow [facility]Glucose [Mass/volume] in Serum or Plasma --1 hour post dose [id number] 09:43:00* Test Item Value Reference Range Interpretation Comme nts Results (test code = Results) 119 [facility] GroupUrinalysis macro (dipstick) panel - [id number] 08:43:51* Test Item Value Reference Range Interpretation Comme nts Leukocytes (test code = Leukocytes) Trace Nitrite (test code = Nitrite) negative Urobilinogen (test code = Urobilinogen) .2 Protein (test code = Protein) Negative pH (test code = pH) 6.5 Blood (test code = Blood) Negative Specific [place] (test code = Specific [place]) 1.010 Ketone (test code = Ketone) Negative Bilirubin (test code = Bilirubin) Negative Glucose (test code = Glucose) Negative Appearance (test code = Appearance) Clear Color (test code = Color) Yellow [facility] W Auto Differential panel - [id number] 08:26:00 * Test Item Value Reference Range Interpretation Comme nts white blood count (test code = white blood count) 16.0 K/uL 4.0-11.5 red blood count (test code = red blood count) 3.62 M/uL 3.80-5.20 L hemoglobin (test code = hemoglobin) 11.1 g/dL 10.5-15.7 hematocrit (test code = hematocrit) 34.5 % 34.0-50.0 MCV [Entitic volume] (test c ode = 00952-1) 95.3 fL 86-100 mean corpuscular hemoglobin (test code = mean corpuscular hemoglobin) 30.7 pg 26.2-33.4 mean corpuscular HGB conc (t est code = mean corpuscular HGB conc) 32.2 g/dL 30-34 red cell distribution width (test code = red cell distribution width) 13.2 % 12.0-15.5 platelet count (test code = platelet count) 269 K/uL 165-450 mean platelet volume (test c ode = mean platelet volume) 12.1 fL 9.4-12.6 Segmented neutrophils/100 leukocytes in Blood (test code = 58901-8) 65.4 % 44.4-80.1 Immature granulocytes [#/vol ume] in Blood (test code = 77837-5) 0.4 K/uL 0.0-0.03 H lymphocyte% (test code = lymphocyte%) 24.5 % 10.0-50.0 mono % (test code = mono %) 5.3 % 3.6-12.0 eos % (test code = eos %) 1.8 % 0.0-5.4 Basophils/100 leukocytes in Unspecified specimen (test code = 73194-4) 0.4 % 0.1-1.2 Band form neutrophils [#/vol ume] in Blood (test code = 77498-7) 10.50 K/uL 1.56-6.13 H Lymphocytes [#/volume] in Unspecified specimen by Automated count (test code = 22744-6) 3.9 K/uL 1.18-3.74 H mono # (test code = mono #) 0.85 K/uL 0.24-0.86 eos # (test code = eos #) 0.29 K/uL 0.04-0.36 basophil # (test code = baso moises #) 0.06 K/uL 0.01-0.08 NRBC% (test code = NRBC%) 0 /100 WBC 0-0.2 NRBC# (test code = NRBC#) 0 K/uL [facility] GroupBlood [facility] antibody screen [Presence] in Serum or Plasma 2021-09-10 08:26:00* Test Item Value Reference Range Interpretation Comme nts Blood group antibody screen [Presence] in Serum or Plasma (test code = 890-4) negative [facility] GroupHIV 1+2 Ab [Presence] in [id number] 00:00:00HIV P24 AgHIV-1/2 AbMatagorda Medical GroupReagin Ab [Presence] in Serum by RPR 2021-09-10 00:00:00* Test Item Value Reference Range Interpretation Comme nts Reagin Ab [Presence] in Seru m by RPR (test code = 05303-6) nonreactive nonreactive [facility] GroupUrinalysis macro (dipstick) panel - [id number] 10:36:58* Test Item Value Reference Range Interpretation Comme nts Leukocytes (test code = Leukocytes) Small Nitrite (test code = Nitrite) negative Urobilinogen (test code = Urobilinogen) .2 Protein (test code = Protein) Negative pH (test code = pH) 6.5 Blood (test code = Blood) Negative Specific [place] (test code = Specific [place]) 1.005 Ketone (test code = Ketone) Negative Bilirubin (test code = Bilirubin) Negative Glucose (test code = Glucose) Negative Appearance (test code = Appearance) Clear Color (test code = Color) Yellow [facility] macro (dipstick) panel - [id number] 15:57:14* Test Item Value Reference Range Interpretation Comme nts Leukocytes (test code = Leukocytes) Negative Nitrite (test code = Nitrite) negative Urobilinogen (test code = Urobilinogen) .2 Protein (test code = Protein) Negative pH (test code = pH) 7.0 Blood (test code = Blood) Negative Specific [place] (test code = Specific [place]) 1.010 Ketone (test code = Ketone) Negative Bilirubin (test code = Bilirubin) Negative Glucose (test code = Glucose) Negative Appearance (test code = Appearance) Clear Color (test code = Color) Yellow [facility] Systemp[facility], LB + [id number] 00:00:00* Test Item Value Reference Range Interpretation Comme nts HPV type-detect 4.0 by real time PCR high risk subtypes only (test code = HPV type-detect 4.0 by real time PCR high risk subtypes only) not detected liquid Pap test (test code = liquid Pap test) normal [facility] SystemCT + NG + TV, DNA, urine/[id number] 00:00:00* Test Item Value Reference Range Interpretation Comme nts chlamydia trachomatis by hannah l-time PCR (reflex to azithromycin resistance by pyrosequencing) (test code = chlamydia trachomatis by real-time PCR (reflex to azithromycin resistance by pyrosequencing)) negative trichomonas vaginalis by hannah l-time PCR (reflex to metronidazole resistance) (test code = trichomonas vaginalis by real-time PCR (reflex to metronidazole resistance)) negative neisseria gonorrhoeae by hannah l-time PCR (reflex to antibiotic resistance by molecular analysis) (test code = neisseria gonorrhoeae by real-time PCR (reflex to antibiotic resistance by molecular analysis)) negative [facility] SystemCB W Auto Differential panel - [id number] 11:56:00 * Test Item Value Reference Range Interpretation Comme nts white blood count (test code = white blood count) 12.1 K/uL 4.0-11.5 H red blood count (test code = red blood count) 3.84 M/uL 3.80-5.20 hemoglobin (test code = hemoglobin) 11.2 g/dL 10.5-15.7 hematocrit (test code = hematocrit) 33.8 % 34.0-50.0 L MCV [Entitic volume] (test c ode = 54026-3) 88.0 fL 86-100 mean corpuscular hemoglobin (test code = mean corpuscular hemoglobin) 29.2 pg 26.2-33.4 mean corpuscular HGB conc (t est code = mean corpuscular HGB conc) 33.1 g/dL 30-34 red cell distribution width (test code = red cell distribution width) 12.8 % 12.0-15.5 platelet count (test code = platelet count) 259 K/uL 165-450 mean platelet volume (test c ode = mean platelet volume) 11.8 fL 9.4-12.6 Segmented neutrophils/100 leukocytes in Blood (test code = 90650-4) 75.8 % 44.4-80.1 Immature granulocytes [#/vol ume] in Blood (test code = 91186-2) 0.2 K/uL 0.0-0.03 H lymphocyte% (test code = lymphocyte%) 17.5 % 10.0-50.0 mono % (test code = mono %) 3.8 % 3.6-12.0 eos % (test code = eos %) 1.5 % 0.0-5.4 Basophils/100 leukocytes in Unspecified specimen (test code = 76261-9) 0.2 % 0.1-1.2 Band form neutrophils [#/vol ume] in Blood (test code = 68928-3) 9.15 K/uL 1.56-6.13 H Lymphocytes [#/volume] in Unspecified specimen by Automated count (test code = 10281-3) 2.1 K/uL 1.18-3.74 mono # (test code = mono #) 0.46 K/uL 0.24-0.86 eos # (test code = eos #) 0.18 K/uL 0.04-0.36 basophil # (test code = baso moises #) 0.03 K/uL 0.01-0.08 NRBC% (test code = NRBC%) 0 /100 WBC 0-0.2 NRBC# (test code = NRBC#) 0 K/uL [facility] GroupThyrotropin [Units/volume] in Serum or [id number] 11:56:00* Test Item Value Reference Range Interpretation Comme nts Thyrotropin [Units/volume] i n Serum or Plasma (test code = 3016-3) <0.01 0.36-3.74 L [facility] GroupABO & Rh group [Type] in [id number] 11:56:00* Test Item Value Reference Range Interpretation Comme nts Rh [Type] in Blood (test cod e = 72840-3) 4+ ABO and Rh group panel - Blo od (test code = 27385-7) B positive [facility] GroupBlood group antibody screen [Presence] in Serum or Plasma 2021-06-23 11:56:00* Test Item Value Reference Range Interpretation Comme nts Blood group antibody screen [Presence] in Serum or Plasma (test code = 890-4) negative [facility] GroupDifferential panel, method unspecified - [id number] 00:00:00NeutrophilsBandLymphocyteAtypical LymphMonocyteEosinophilBasophilMetamyelocyteMyelocyteBlastsNucleated Red Blood CellDifferential CommentAbs Neutrophil Count (Man)Abs Lymph Count (Man)Abs Monocyte Count (Man)Abs Eosinophil Count (Man)Abs Basophil Count (Man)Platelet EstimatePlatelet MorphologyPolych romasiaHypochromasiaPoikilocytosisAnisocytosisMicrocytosisMacrocytosisSpherocyte SchistocytesOvalocytesToxic GranulationBurr CellsAcanthocytesHypersegmented PolysRouleauToxic VacuolationSmudge CellsMatagorda Medical GroupThyroxine (T4) free [Mass/volume] in Serum or [id number] 00:00:00* Test Item Value Reference Range Interpretation Comme nts free T4 (test code = free T4) 0.93 NG/dL 0.93-1.7 [facility] GroupHIV 1+2 Ab [Presence] in [id number] 00:00:00HIV P24 AgHIV-1/2 AbMatarda Medical GroupHepatitis B virus surface Ag [Presence] in [id number] 00:00:00* Test Item Value Reference Range Interpretation Comme nts .hepatitis B surface antigen (test code = .hepatitis B surface antigen) negative negative [facility] SystemReagin Ab [Presence] in Serum by [id number] 00:00:00* Test Item Value Reference Range Interpretation Comme nts Reagin Ab [Presence] in Seru m by RPR (test code = 58243-4) nonreactive nonreactive [facility] Systemlafpmat2021-10-20 00:00:00* Test Item Value Reference Range Interpretation Comme nts .AFP,osb results (test code = .AFP,osb results) report See_Comment [Automated message] The system which generated this result transmitted reference range: .. The reference range was not used to interpret this result as normal/abnormal. .AFP, test results (test code = .AFP, test results) *screen negative* See_Comment [Automated message] The system which generated this result transmitted reference range: .. The reference range was not used to interpret this result as normal/abnormal. Gestational age (test code = 38847-7) ultrasound weeks See_Comment [Automated message] The system which generated this result transmitted reference range: .. The reference range was not used to interpret this result as normal/abnormal. [age] at delivery (test code = 62087-9) 30[age]8 [age] See_Comment [Automated message] The system which generated this result transmitted reference range: .. The reference range was not used to interpret this result as normal/abnormal. Race (test code = 88548-2) See_Comment [Automated message] The system which generated this result transmitted reference range: .. The reference range was not used to interpret this result as normal/abnormal. Mother's body weight --at delivery (test code = 79957-0) 127 [lb av] See_Comment [Automated message] The system which generated this result transmitted reference range: .. The reference range was not used to interpret this result as normal/abnormal. Insulin dependent diabetes mellitus [Presence] (test code = 75277-3) no See_Comment [Automated message] The system which generated this result transmitted reference range: .. The reference range was not used to interpret this result as normal/abnormal. Multiple (test code = 22772-7) See_Comment [Automated message] The system which generated this result transmitted reference range: .. The reference range was not used to interpret this result as normal/abnormal. .AFP value (test code = .AFP value) 51.0 NG/mL See_Comment [Automated message] The system which generated this result transmitted reference range: .. The reference range was not used to interpret this result as normal/abnormal. [id number]-3-Ghqtztnubey [Multiple of the median] in Serum or Plasma (test code = 97347-2) 1.02 See_Comment [Automated message] The system which generated this result transmitted reference range: .. The reference range was not used to interpret this result as normal/abnormal. Neural tube defect risk [Likelihood] in Fetus (test code = 41211-5) [id number] See_Comment [Automated message] The system which generated this result transmitted reference range: .. The reference range was not used to interpret this result as normal/abnormal. .AFP interp (test code = .AFP interp) See_Comment [Automated message] The system which generated this result transmitted reference range: .. The reference range was not used to interpret this result as normal/abnormal. .AFP comment (test code = .AFP comment) See_Comment [Automated message] The system which generated this result transmitted reference range: .. The reference range was not used to interpret this result as normal/abnormal. [facility] SystemUrinalysis macro (dipstick) panel - [id number] 14:48:21* Test Item Value Reference Range Interpretation Comme nts Leukocytes (test code = Leukocytes) Negative Nitrite (test code = Nitrite) negative Urobilinogen (test code = Urobilinogen) 1 Protein (test code = Protein) Negative pH (test code = pH) 7.0 Blood (test code = Blood) Negative Specific [place] (test code = Specific [place]) 1.025 Ketone (test code = Ketone) Negative Bilirubin (test code = Bilirubin) Negative Glucose (test code = Glucose) Negative Appearance (test code = Appearance) Clear Color (test code = Color) Yellow [facility] Systempregnancy test, [id number] 14:47:42* Test Item Value Reference Range Interpretation Comme nts Test (test code = Test) positive [facility] SystemBacteria identified in Urine by [id number] 02:34:00* Test Item Value Reference Range Interpretation Comme nts Bacteria identified in Urine by Culture (test code = 630-4) no growth at 2 days [facility] SystemUrinalysis macro (dipstick) panel - [id number] 14:23:07* Test Item Value Reference Range Interpretation Comme nts Leukocytes (test code = Leukocytes) Small Nitrite (test code = Nitrite) negative Urobilinogen (test code = Urobilinogen) .2 Protein (test code = Protein) Negative pH (test code = pH) 6.5 Blood (test code = Blood) Negative Specific [place] (test code = Specific [place]) 1.020 Ketone (test code = Ketone) Trace Bilirubin (test code = Bilirubin) Negative Glucose (test code = Glucose) Negative Appearance (test code = Appearance) Clear Color (test code = Color) Yellow [facility] SystemUrinalysis macro (dipstick) panel - [id number] 14:26:14* Test Item Value Reference Range Interpretation Comme nts Leukocytes (test code = Leukocytes) Small Nitrite (test code = Nitrite) negative Urobilinogen (test code = Urobilinogen) .2 Protein (test code = Protein) Negative pH (test code = pH) 6.0 Blood (test code = Blood) Negative Specific [place] (test code = Specific [place]) 1.030 Ketone (test code = Ketone) Negative Bilirubin (test code = Bilirubin) Negative Glucose (test code = Glucose) Negative Appearance (test code = Appearance) Clear Color (test code = Color) Yellow [facility] SystemUrinalysis macro (dipstick) panel - [id number] 14:10:50* Test Item Value Reference Range Interpretation Comme nts Leukocytes (test code = Leukocytes) Large Nitrite (test code = Nitrite) negative Urobilinogen (test code = Urobilinogen) .2 Protein (test code = Protein) Negative pH (test code = pH) 7.0 Blood (test code = Blood) Negative Specific [place] (test code = Specific [place]) 1.020 Ketone (test code = Ketone) Negative Bilirubin (test code = Bilirubin) Negative Glucose (test code = Glucose) Negative Appearance (test code = Appearance) Clear Color (test code = Color) Yellow [facility] SystemUrinalysis macro (dipstick) panel - [id number] 13:47:29* Test Item Value Reference Range Interpretation Comme nts Leukocytes (test code = Leukocytes) Small Nitrite (test code = Nitrite) negative Urobilinogen (test code = Urobilinogen) 1 Protein (test code = Protein) Negative pH (test code = pH) 7.0 Blood (test code = Blood) Negative Specific [place] (test code = Specific [place]) 1.020 Ketone (test code = Ketone) Negative Bilirubin (test code = Bilirubin) Negative Glucose (test code = Glucose) Negative Appearance (test code = Appearance) Clear Color (test code = Color) Yellow [facility] GroupUr[facility] (dipstick) panel - [id number] 15:34:00* Test Item Value Reference Range Interpretation Comme nts Leukocytes (test code = Leukocytes) Small Nitrite (test code = Nitrite) negative Urobilinogen (test code = Urobilinogen) .2 Protein (test code = Protein) Negative pH (test code = pH) 7.0 Blood (test code = Blood) Negative Specific [place] (test code = Specific [place]) 1.015 Ketone (test code = Ketone) Negative Bilirubin (test code = Bilirubin) Negative Glucose (test code = Glucose) Negative Appearance (test code = Appearance) Clear Color (test code = Color) Yellow [facility] GroupStreptococcus agalactiae [Presence] in Unspecified specimen by Organism specific [id number] 00:00:00* Test Item Value Reference Range Interpretation Comme nts group B streptococcus (gbs) by real-time PCR (test code = group B streptococcus (gbs) by real-time PCR) negative [facility] GroupChlamydia trachomatis+Neisseria gonorrhoeae DNA [Presence] in Unspecified specimen by JORGITO with probe [id number] 00:00:00* Test Item Value Reference Range Interpretation Comme nts chlamydia trachomatis by hannah l-time PCR (reflex to azithromycin resistance by pyrosequencing) (test code = chlamydia trachomatis by real-time PCR (reflex to azithromycin resistance by pyrosequencing)) negative neisseria gonorrhoeae by hannah l-time PCR (reflex to antibiotic resistance by molecular analysis) (test code = neisseria gonorrhoeae by real-time PCR (reflex to antibiotic resistance by molecular analysis)) negative [facility] GroupUrinalysis macro (dipstick) panel - [id number] 16:20:00* Test Item Value Reference Range Interpretation Comme nts Leukocytes (test code = Leukocytes) Trace Nitrite (test code = Nitrite) negative Urobilinogen (test code = Urobilinogen) .2 Protein (test code = Protein) Negative pH (test code = pH) 6.0 Blood (test code = Blood) Negative Specific [place] (test code = Specific [place]) 1.015 Ketone (test code = Ketone) Negative Bilirubin (test code = Bilirubin) Negative Glucose (test code = Glucose) Negative Appearance (test code = Appearance) Clear Color (test code = Color) Yellow [facility] SystemGlucose tolerance 3 hours panel - Serum or Plasma 2020-05-27 12:59:00* Test Item Value Reference Range Interpretation Comme [facility] Results (test code = Results) Fasting 77, 1 hour 144, 2 hour 125 [facility] SystemGlucose [Mass/volume] in Serum or Plasma --1 hour post dose [id number] 09:54:00* Test Item Value Reference Range Interpretation Comme [facility] Results (test code = Results) 142 [facility] SystemCB W Auto Differential panel - [id number] 08:06:00 * Test Item Value Reference Range Interpretation Comme nts white blood count (test code = white blood count) 12.3 K/uL 4.0-11.5 H red blood count (test code = red blood count) 3.31 M/uL 3.80-5.20 L hemoglobin (test code = hemoglobin) 10.2 g/dL 10.5-15.7 L hematocrit (test code = hematocrit) 31.4 % 34.0-50.0 L MCV [Entitic volume] (test c ode = 42523-4) 94.9 fL 86-100 mean corpuscular hemoglobin (test code = mean corpuscular hemoglobin) 30.8 pg 26.2-33.4 mean corpuscular HGB conc (t est code = mean corpuscular HGB conc) 32.5 g/dL 30-34 red cell distribution width (test code = red cell distribution width) 12.5 % 12.0-15.5 platelet count (test code = platelet count) 224 K/uL 165-450 mean platelet volume (test c ode = mean platelet volume) 11.2 fL 9.4-12.6 Segmented neutrophils/100 leukocytes in Blood (test code = 95358-5) 69.3 % 44.4-80.1 Immature granulocytes [#/vol ume] in Blood (test code = 34660-9) 0.2 K/uL 0.0-0.03 H lymphocyte% (test code = lymphocyte%) 21.0 % 10.0-50.0 mono % (test code = mono %) 6.3 % 3.6-12.0 eos % (test code = eos %) 1.5 % 0.0-5.4 Basophils/100 leukocytes in Unspecified specimen (test code = 78874-1) 0.2 % 0.1-1.2 Band form neutrophils [#/vol ume] in Blood (test code = 09037-2) 8.52 K/uL 1.56-6.13 H Lymphocytes [#/volume] in Unspecified specimen by Automated count (test code = 05320-5) 2.6 K/uL 1.18-3.74 mono # (test code = mono #) 0.78 K/uL 0.24-0.86 eos # (test code = eos #) 0.18 K/uL 0.04-0.36 basophil # (test code = baso moises #) 0.03 K/uL 0.01-0.08 NRBC% (test code = NRBC%) 0 /100 WBC 0-0.2 NRBC# (test code = NRBC#) 0 K/uL [facility] GroupBlood group antibody screen [Presence] in Serum or Plasma 2020-05-25 08:06:00* Test Item Value Reference Range Interpretation Comme nts Blood group antibody screen [Presence] in Serum or Plasma (test code = 890-4) negative [facility] GroupUrinalysis macro (dipstick) panel - [id number] 14:48:00* Test Item Value Reference Range Interpretation Comme nts Leukocytes (test code = Leukocytes) Trace Nitrite (test code = Nitrite) negative Urobilinogen (test code = Urobilinogen) .2 Protein (test code = Protein) Negative pH (test code = pH) 6.0 Blood (test code = Blood) Negative Specific [place] (test code = Specific [place]) 1.025 Ketone (test code = Ketone) Negative Bilirubin (test code = Bilirubin) Negative Glucose (test code = Glucose) Negative Appearance (test code = Appearance) Clear Color (test code = Color) Yellow [facility] Systempap, LB + reflex to HR HPV if [id number] 00:00:00* Test Item Value Reference Range Interpretation Comme nts TP reflex HPV ASCUS (test co de = TP reflex HPV ASCUS) normal [facility] SystemUrinalysis macro (dipstick) panel - [id number] 14:47:50* Test Item Value Reference Range Interpretation Comme nts Leukocytes (test code = Leukocytes) Large Nitrite (test code = Nitrite) negative Urobilinogen (test code = Urobilinogen) .2 Protein (test code = Protein) Negative pH (test code = pH) 7.0 Blood (test code = Blood) Negative Specific [place] (test code = Specific [place]) 1.010 Ketone (test code = Ketone) Negative Bilirubin (test code = Bilirubin) Negative Glucose (test code = Glucose) Negative Appearance (test code = Appearance) Clear Color (test code = Color) Yellow [facility] SystemCB W Auto Differential panel - [id number] 01:48:00 * Test Item Value Reference Range Interpretation Comme nts white blood count (test code = white blood count) 12.0 K/uL 4.0-11.5 H red blood count (test code = red blood count) 3.37 M/uL 3.80-5.20 L hemoglobin (test code = hemoglobin) 10.5 g/dL 10.5-15.7 hematocrit (test code = hematocrit) 31.6 % 34.0-50.0 L MCV [Entitic volume] (test c ode = 83774-3) 93.8 fL 86-100 mean corpuscular hemoglobin (test code = mean corpuscular hemoglobin) 31.2 pg 26.2-33.4 mean corpuscular HGB conc (t est code = mean corpuscular HGB conc) 33.2 g/dL 30-34 red cell distribution width (test code = red cell distribution width) 13.0 % 12.0-15.5 platelet count (test code = platelet count) 244 K/uL 165-450 mean platelet volume (test c ode = mean platelet volume) 12.0 fL 9.4-12.6 Segmented neutrophils/100 leukocytes in Blood (test code = 62272-8) 76.1 % 44.4-80.1 Immature granulocytes [#/vol ume] in Blood (test code = 72923-0) 0.1 K/uL 0.0-0.03 H lymphocyte% (test code = lymphocyte%) 16.6 % 10.0-50.0 mono % (test code = mono %) 4.8 % 3.6-12.0 eos % (test code = eos %) 1.1 % 0.0-5.4 Basophils/100 leukocytes in Unspecified specimen (test code = 30984-0) 0.3 % 0.1-1.2 Band form neutrophils [#/vol ume] in Blood (test code = 45679-0) 9.11 K/uL 1.56-6.13 H Lymphocytes [#/volume] in Unspecified specimen by Automated count (test code = 56633-0) 2.0 K/uL 1.18-3.74 mono # (test code = mono #) 0.57 K/uL 0.24-0.86 eos # (test code = eos #) 0.13 K/uL 0.04-0.36 basophil # (test code = baso moises #) 0.04 K/uL 0.01-0.08 NRBC% (test code = NRBC%) 0 /100 WBC 0-0.2 NRBC# (test code = NRBC#) 0 K/uL [facility] GroupChlamydia trachomatis+Neisseria gonorrhoeae rRNA [Presence] in Unspecified specimen by [id number] 01:48:00* Test Item Value Reference Range Interpretation Comme nts Chlamydia sp Ag [Presence] i n Unspecified specimen (test code = 45586-0) CT not detected [id number] (test code = lna9089) NG not detected [facility] [Type] in [id number] 01:48:00* Test Item Value Reference Range Interpretation Comme nts Rh [Type] in Blood (test cod e = 06414-4) 4+ ABO and Rh group panel - Blo od (test code = 12630-2) B positive [facility] antibody screen [Presence] in Serum or Plasma 2020-04-24 01:48:00* Test Item Value Reference Range Interpretation Comme nts Blood group antibody screen [Presence] in Serum or Plasma (test code = 890-4) negative [facility]atitis B virus surface Ag [Presence] in Serum 2020-04-24 01:48:00* Test Item Value Reference Range Interpretation Comme nts .hepatitis B surface antigen (test code = .hepatitis B surface antigen) negative negative [facility] Group[facility]acteria identified in Urine by [id number] 01:48:00* Test Item Value Reference Range Interpretation Comme nts Bacteria identified in Urine by Culture (test code = 630-4) no growth after 2 days [facility]HIV 1+2 Ab [Presence] in [id number] 01:48:00HIV P24 AgHIV-1/2 AbMat[facility] GroupReagin Ab [Presence] in Serum by RPR 2020-04-24 01:48:00* Test Item Value Reference Range Interpretation Comme nts Reagin Ab [Presence] in Seru m by RPR (test code = 70966-4) nonreactive nonreactive [facility] GroupChromosome 13+18+21+X+Y aneuploidy in Blood by Molecular genetics method [id number] 00:00:00* Test Item Value Reference Range Interpretation Comme nts report summary (test code = report summary) see notes A report note (test code = report note) see notes A trisomy 13 age-based risk score (test code = trisomy 13 age-based risk score) trisomy 13 risk score (test code = trisomy 13 risk score) trisomy 13 age-based risk text (test code = trisomy 13 age-based risk text) <1/10,000 (<0.01%) trisomy 13 risk score text (test code = trisomy 13 risk score text) <1/10,000 (<0.01%) trisomy 13 age-based risk fraction (test code = trisomy 13 age-based risk fraction) trisomy 13 risk score fraction (test code = trisomy 13 risk score fraction) trisomy 13 result text (test code = trisomy 13 result text) low risk trisomy 13 result comments (test code = trisomy 13 result comments) see notes trisomy 18 age-based risk score (test code = trisomy 18 age-based risk score) trisomy 18 risk score (test code = trisomy 18 risk score) trisomy 18 age-based risk text (test code = trisomy 18 age-based risk text) 1/4,336 (0.02%) trisomy 18 risk score text (test code = trisomy 18 risk score text) <1/10,000 (<0.01%) trisomy 18 age-based risk fraction (test code = trisomy 18 age-based risk fraction) trisomy 18 risk score fraction (test code = trisomy 18 risk score fraction) trisomy 18 result text (test code = trisomy 18 result text) low risk trisomy 18 result comments (test code = trisomy 18 result comments) see notes trisomy 21 age-based risk score (test code = trisomy 21 age-based risk score) trisomy 21 risk score (test code = trisomy 21 risk score) trisomy 21 age-based risk text (test code = trisomy 21 age-based risk text) 1/1,147 (0.09%) trisomy 21 risk score text (test code = trisomy 21 risk score text) <1/10,000 (<0.01%) trisomy 21 age-based risk fraction (test code = trisomy 21 age-based risk fraction) trisomy 21 risk score fraction (test code = trisomy 21 risk score fraction) trisomy 21 result text (test code = trisomy 21 result text) low risk trisomy 21 result comments (test code = trisomy 21 result comments) see notes monosomy X age-based risk score (test code = monosomy X age-based risk score) monosomy X risk score (test code = monosomy X risk score) monosomy X age-based risk text (test code = monosomy X age-based risk text) 1/568 (0.18%) monosomy X risk score text (test code = monosomy X risk score text) n/a monosomy X age-based risk fraction (test code = monosomy X age-based risk fraction) monosomy X risk score fraction (test code = monosomy X risk score fraction) monosomy X result text (test code = monosomy X result text) no result monosomy X result comments (test code = monosomy X result comments) see notes triploidy result text (test code = triploidy result text) low risk triploidy result comments (test code = triploidy result comments) see notes gender of fetus (test code = gender of fetus) male fraction (in %) (test code = fraction (in %)) 10.5 % fraction (test code = fraction) 10.5% footnotes (test code = footnotes) see notes boiler plate text (test code = boiler plate text) see notes references (test code = references) see notes approvals (test code = approvals) see notes contacts (test code = contacts) see notes [facility] Unspecified specimen by Molecular genetics method [id number] 00:00:00* Test Item Value Reference Range Interpretation Comme nts smbmh-hvxrm-xshjc syndrome ( test code = ogqyu-quqcm-wseax syndrome) positive A alpha-thalassemia (test code = alpha-thalassemia) negative beta-hemoglobinopathies (veronica t code = beta-hemoglobinopathies) negative pamela disease (test code = pamela disease) negative cystic fibrosis (test code = cystic fibrosis) negative duchenne/lerma muscular dys trophy (test code = duchenne/lerma muscular dystrophy) negative familial dysautonomia (test code = familial dysautonomia) negative fragile X syndrome (test cod e = fragile X syndrome) negative galactosemia (test code = galactosemia) negative gaucher disease (test code = gaucher disease) negative medium chain acyl-coa dehydr ogenase deficiency (test code = medium chain acyl-coa dehydrogenase deficiency) negative polycystic kidney disease, autosomal recessive (test code = polycystic kidney disease, autosomal recessive) negative spinal muscular atrophy (veronica t code = spinal muscular atrophy) negative lesly-sachs disease (test code = lesly-sachs disease) negative panel notes (test code = hu el notes) see notes IS this patient ? (t est code = IS this patient ?) yes did this patient sign the pa tient acknowledgement? (test code = did this patient sign the patient acknowledgement?) yes did the ordering clinician s ign the statement of informed consent? (test code = did the ordering clinician sign the statement of informed consent?) yes zip code of the ordering fac [facility] (test code = zip code of the ordering facility) see notes IS the patient currently usi ng hormonal medications? (test code = IS the patient currently using hormonal medications?) no patient ethnicity (test code = patient ethnicity) see notes report note (test code = rep ort note) see notes footnotes (test code = footnotes) see notes references (test code = references) see notes approvals (test code = approvals) see notes contacts (test code = contacts) see notes [facility] History and Physical Notes Date/Time Note Provider Source 2024-04-04 02:19:31 TRIAGE HISTORY & PHYSICAL IDENTIFYING DATA Suzie Austin is 34 year old, /White, 40w0d, female with DANIEL 04/04/2024, by Ultrasound. : 1990 Primary Care Physician: PATIENT DOES NOT HAVE A PCP CHIEF COMPLAINT PROM HISTORY OF PRESENT ILLNESS Suzie Austin is a 34 year old female @ 40w0d presented for LOF that started around 12:21 am today. Moderate amount and clear. Small amount of blood with wiping noted on presentation. +FM. + CTX. No pre-eclampsia sx or other complaints. PAST OBSTETRIC HISTORY OB History Para Term AB Living 6 5 5 5 SAB IAB Ectopic Multiple Live Births 5 # Outcome Date GA Lbr Sixto/2nd Weight Sex Delivery Anes PTL Lv 6 Current 5 Term 11/20/21 40w0d 2268 g F Vag-Spont KEANU 4 Term 08/31/20 40w0d 3175 g M Vag-Spont KEANU 3 Term 09/15/14 40w0d 3175 g M Vag-Spont KEANU 2 Term 01/13/13 40w0d 2722 g F KEANU 1 Term 04/17/11 40w0d 3175 g M Vag-Spont KEANU PAST MEDICAL HISTORY Problem list: Patient Active Problem List Diagnosis Date Noted Normal labor 04/04/2024 Full-term premature rupture of membranes with onset of labor within 24 hours of rupture 04/04/2024 40 weeks gestation of 04/03/2024 Breech presentation, single or unspecified fetus 04/02/2024 Gastroesophageal reflux disease, unspecified whether esophagitis present 03/26/2024 Encounter for tubal ligation counseling 02/14/2024 High-risk in third trimester 11/08/2023 Positive test for herpes simplex virus (HSV) antibody 11/08/2023 Operations: No past surgical history on file. Past Medical History: Diagnosis Date Encounter for tubal ligation counseling 02/14/2024 CURRENT HEALTH STATUS Medications: Current Facility-Administered Medications Medication Dose Route Frequency Last Rate Last Admin carboprost (HEMABATE) injection 250 mcg 250 mcg Intramuscular Q2HPRN D5W-LR IV infusion 1,000 mL 1,000 mL IV Infusion TITRATE 125 mL/hr at 04/04/24 0203 1,000 mL at 04/04/24 0203 FENTanyl PF (SUBLIMAZE (PF)) injection 50 mcg 50 mcg Slow IV Push Q1HPRN lactated ringers IV infusion 500 mL 500 mL IV Infusion ONCE lactated ringers IV infusion 500 mL 500 mL IV Infusion PRN - SEE INSTRUCTIONS lactated ringers IV infusion 500 mL 500 mL IV Infusion PRN - SEE INSTRUCTIONS lidocaine 1% (PF) (XYLOCAINE) injection 0.3 mL 0.3 mL Infiltration PRN - SEE INSTRUCTIONS methylergonovine (METHERGINE) injection 0.2 mg 0.2 mg Intramuscular Q4HPRN mineral oil (MINERAL OIL EXTRA HEAVY) oral liquid Topical ONCE miSOPROStoL (CYTOTEC) tablet 200 mcg 200 mcg Rectal PRN oxytocin (PITOCIN) 30 units in NS 500 mL IV infusion 600 mL/hr IV Infusion PRN proMETHazine (PHENERGAN) 25 mg in NS 50 mL IV piggyback (CNR) 25 mg IV Piggyback Q4HPRN sodium citrate-citric acid (BICITRA) 500-334 mg/5 mL solution 30 mL 30 mL Oral PRE-PROCEDURE ONCE sodium citrate-citric acid (BICITRA) 500-334 mg/5 mL solution 30 mL 30 mL Oral PRE-PROCEDURE ONCE terbutaline (BRETHINE) injection 0.25 mg 0.25 mg Subcutaneous PRN tranexamic acid (CYKLOKAPRON) 1,000 mg in NaCl 0.9% (NS) 250 mL piggyback 1,000 mg IV Piggyback PRN Allergies and drug reactions: Patient has no known allergies. HOME MEDICATIONS Medications Prior to Admission Medication Sig Dispense Refill Last Dose famotidine (PEPCID) 20 mg tablet Take 1 tablet by mouth in the morning and 1 tablet in the evening. 60 tablet 0 04/03/2024 valACYclovir (VALTREX) 500 mg tablet Take 1 tablet by mouth in the morning. 30 tablet 0 Unknown PNV 67-iron ps-folate no.1-dha (VITAFOL ULTRA) 29 mg iron- 1 mg-200 mg Cap Take 1 tablet by mouth in the morning. 30 capsule 6 04/03/2024 SOCIAL HISTORY Tobacco History: Social History Tobacco Use Smoking Status Every Day Types: Cigarettes Passive exposure: Never Smokeless Tobacco Never Tobacco Comments 5 cigs a day Drug History: Social History Substance and Sexual Activity Drug Use No Alcohol History: Social History Substance and Sexual Activity Alcohol Use Never FAMILY HISTORY No family history on file. REVIEW OF SYSTEMS General: negative Constitutional: negative Eyes: negative ENT/Mouth: negative Cardiovascular: negative Respiratory: negative Gastrointestinal:negative Genitourinary: see HPI Musculoskeletal: negative Skin/breast: negative Neurological: negative Psychiatric: negative Endocrine: negative Hemat/Lymph: negative Allergic/Immuno:none VITAL SIGNS BP: (120-129)/(77-79) Temp: [37.1 ?C (98.8 ?F)] Temp source: Oral (04/04 0119) Pulse: [88-97] Resp: [16] SpO2: [99 %] Height: [160 cm (5' 3")] Weight: [63.8 kg (140 lb 9.6 oz)] BMI (calculated): [24.91] PHYSICAL EXAMINATIONS Gen: alert and oriented, well appearing, no distress CV: RRR, normal S1/S2, no m/r/g Resp: normal work of breathing, lungs CTAB Abd: gravid, soft, NTTP Ext: no calf tenderness or edema : SVE 4/50/-3, No membrane palpable, bloody show noted REVIEW OF LABORATORY, PATHOLOGY, AND RADIOLOGY DATA Lab results: Type & Screen HIV Hep B Syphilis Chlamydia ABO & RH Date Value Ref Range Status 12/11/2023 B POSITIVE Final No results found for: "HIVMULTIPLEX" No components found for: "HBSHBSAG" No results found for: "SYPIGG" C. trachomatis Nucleic Acid Date Value Ref Range Status 03/06/2024 Negative Negative Final IAT Date Value Ref Range Status 12/11/2023 Negative Final Varicella Rubella Glucose Group B Strep CBC VZV IgG antibody Date Value Ref Range Status 10/12/2023 Positive Negative Final RUBELLA Date Value Ref Range Status 09/02/2010 POSITIVE Final Comment: INTRPRETATION OF RESULTS: . POSITIVE= INDICATES IMMUNITY TO INFECTION WITH RUBELLA. . NEGATIVE= INDICATES PATIENT COULD BE SUSCEPTIBLE TO RUBELLA INFECTION. . EQUIVOCAL- A SECOND SAMPLE SHOULD BE SENT. GLUC 1 HR Date Value Ref Range Status 12/11/2023 68 (L) 120 - 170 mg/dL Final No results found for: "CGBS" HGB Date Value Ref Range Status 04/04/2024 10.9 (L) 11.6 - 15.0 g/dL Final HCT Date Value Ref Range Status 04/04/2024 31.7 (L) 35.7 - 45.2 % Final PLT Date Value Ref Range Status 04/04/2024 261 166 - 358 10*3/?L Final Active Hospital Problems Diagnosis Date Noted Normal labor 04/04/2024 Full-term premature rupture of membranes with onset of labor within 24 hours of rupture 04/04/2024 40 weeks gestation of 04/03/2024 Gastroesophageal reflux disease, unspecified whether esophagitis present 03/26/2024 Encounter for tubal ligation counseling 02/14/2024 High-risk in third trimester 11/08/2023 Positive test for herpes simplex virus (HSV) antibody 11/08/2023 Resolved Hospital Problems No resolved problems to display. Present on Admission: Encounter for tubal ligation counseling Gastroesophageal reflux disease, unspecified whether esophagitis present High-risk in third trimester Positive test for herpes simplex virus (HSV) antibody Placenta Accreta Screening Screening outcome: A positive screening outcome indicates a history of prior delivery or prior uterine surgery, AND the presence of either a placenta low lying/previa or ultrasound suspicion of PASD in the current . Negative screening. ASSESSMENT AND PLAN Suzie Austin is a 34 year old at 40w0d who presents with LOF, admitted for PROM and labor. PROM and labor - gross ROM - cephalic confirmed on presentation - GBS neg - Matteo EFW < 4500 grams Anemia - hemoglobin 10.9 MPDPS - BTL consent signed on 02/14/24 - desires bilateral salpingectomy HSV I and II IgG positive - asymptomatic - no lesions on exam - on suppression PVT of Dr. Fraire, please see OB Summary for more details Bj Fraire MD [facility] - Health Procedure Notes Date/Time Note Provider Source 2024-04-04 03:14:24 Associated Order(s): Central Neuraxial Block Central Neuraxial Block Date/Time: 04/04/2024 3:14 AM Performed by: Art Hancock MD Authorized by: Art Hancock MD Patient Location: OB Reason for Block: Labor analgesia, Patient request and OB request Staff: Anesthesiologist: Art Hancock MD Performed by: anesthesiologist Preanesthetic Checklist: patient identified, IV checked, risks and benefits explained, monitors and equipment checked, timeout performed, pre-op evaluation, surgical consent, site marked, ob/surgical consent approval, ob/surgical consent verified and anesthesia consent Procedure: Type of Neuraxial: Continuous and Epidural Sterility Prep cap, drape, gloves, hand hygiene and mask Sedation Level no sedation Patient Position: sitting Prep: Betadine Monitoring: continuous pulse ox, heart rate / toco, heart rate and NIBP Location: lumbar (1-5) Lumbar: L3-L4 Approach: midline Technique: VELMA saline Guidance with: landmark technique} Epidural/Spinal [place] and/or Catheter: Epidural/Spinal Kit: BBraun Needle Type: Tuohy Needle Gauge: 17 G Needle Length: 3.5 in (8.89 cm) Needle Insertion Depth: 4.2 Catheter Type: multiport Catheter Size: 19 G Catheter at Skin Depth: 9 Number of Attempts: 1 Test Dose: lidocaine 1.5% with epinephrine 1-to-200,000 and negative Dose: 3 cc Assessment: Sensory Level: above T10 Thoracic: T8 Block Outcome: patient tolerated procedure well Procedure Assessment: patient tolerated procedure well with no complications Notes: Negative to parasthesias,heme,csf. T [facility] Notes Date/Time Note Provider Source 2024-06-19 08:29:13 Attempted to reach pt, no answer, left a vm Per Dr. Fraire She cancelled her salpingectomy. See if she wants to come in to start another form of contraception. May overbook. Can cancel her post op appt on 07/02 with Melchor 07/02 has been cancelled. Alisa Goldberg RN 06/19/2024 8:30 AM Alisa Goldberg RN [facility] 2024-04-22 16:04:02 [facility] [employer]. Signed and faxed back. Title 19- BP. MOLLY SIBLEY RN 04/22/2024 4:04 PM Molly Sibley RN [facility] 2024-04-05 11:33:03 This note was copied from a baby's chart. Evaluation Situation Follow up visit Background Baby Girl is 1 days old, born weighing 2920g, and has lost 4.45% of weight. Gestational Age: 40w0d at FEEDING STATUS Formula supplementation via bottle MATERNAL STATUS Assessment & Recommendation ASSISTANCE Mom denies problems with or latching so far. Mom states she decided to breast and bottle feed because she just wants to be sure infant is getting enough. I discussed with mom the importance of adding pumping to her routine to maintain her her milk supply. Mom was to encouraged to try and breastfeed at least 8 times a day or a combination of pumping and to help build and maintain her milk supply. education provided. All questions answered. Mom does not have any other questions or concerns at this time. Mom instructed on how to contact Electronic Imaging System Operator for assistance with feedings or to answer questions while in the hospital. Mom Verbalized understanding. Jonah CRAWFORDN, RN, IBCLC Jonah Vicente RN [facility] 2024-04-05 09:29:50 Problem: Pain Goal: Control of pain at or below patient's documented comfort goal Outcome: Adequate for discharge Goal: Reduction in pain sensation Outcome: Adequate for discharge Problem: Bleeding, Risk of Goal: Absence of impaired coagulation signs and symptoms Outcome: Adequate for discharge Goal: Absence of active bleeding Outcome: Adequate for discharge Problem: Infection Risk Goal: Absence of infection Outcome: Adequate for discharge Problem: Falls, Risk of Goal: Absence of falls Outcome: Adequate for discharge Problem: Coping - Ineffective, Individual Goal: Effective coping Outcome: Adequate for discharge Goal: Knowledge of positive coping patterns Outcome: Adequate for discharge Goal: Knowledge of depression symptoms Outcome: Adequate for discharge Problem: Breast-feeding - Ineffective Goal: Effective breast-feeding Outcome: Adequate for discharge Problem: Discharge Planning - Goal: Adequate for discharge Outcome: Adequate for discharge Goal: Mood stable Outcome: Adequate for discharge T [facility] 2024-04-04 18:59:00 Problem: Pain Goal: Control of pain at or below patient's documented comfort goal Outcome: Progressing as expected Goal: Reduction in pain sensation Outcome: Progressing as expected Problem: Bleeding, Risk of Goal: Absence of impaired coagulation signs and symptoms Outcome: Progressing as expected Goal: Absence of active bleeding Outcome: Progressing as expected Problem: Infection Risk Goal: Absence of infection Outcome: Progressing as expected Problem: Falls, Risk of Goal: Absence of falls Outcome: Progressing as expected Problem: Coping - Ineffective, Individual Goal: Effective coping Outcome: Progressing as expected Goal: Knowledge of positive coping patterns Outcome: Progressing as expected Goal: Knowledge of depression symptoms Outcome: Progressing as expected Problem: Breast-feeding - Ineffective Goal: Effective breast-feeding Outcome: Progressing as expected Problem: Discharge Planning - Goal: Adequate for discharge Outcome: Progressing as expected Goal: Mood stable Outcome: Progressing as expected [facility] Vernell Guerrier RN [facility] 2024-04-04 17:54:43 Problem: Pain Goal: Control of pain at or below patient's documented comfort goal Outcome: Progressing as expected Goal: Reduction in pain sensation Outcome: Progressing as expected Problem: Bleeding, Risk of Goal: Absence of impaired coagulation signs and symptoms Outcome: Progressing as expected Goal: Absence of active bleeding Outcome: Progressing as expected Note: EBL 50 ml Problem: Infection Risk Goal: Absence of infection Outcome: Progressing as expected Problem: Falls, Risk of Goal: Absence of falls Outcome: Progressing as expected Problem: Coping - Ineffective, Individual Goal: Effective coping Outcome: Progressing as expected Goal: Knowledge of positive coping patterns Outcome: Progressing as expected Goal: Knowledge of depression symptoms Outcome: Progressing as expected Problem: Breast-feeding - Ineffective Goal: Effective breast-feeding Outcome: Progressing as expected Note: Mother request formula to bottle feed/supplement Problem: Discharge Planning - Goal: Adequate for discharge Outcome: Progressing as expected Goal: Mood stable Outcome: Progressing as expected Problem: Intrapartum process (including labor pain) Goal: Absence of or reduction of complications of labor Outcome: Resolved Goal: Able to cope with pain Outcome: Resolved Goal: Adequate to move to next level of care Outcome: Resolved Goal: Reduction in pain sensation Outcome: Resolved Martha Shetty RN [facility] 2024-04-04 16:06:31 This note was copied from a baby's chart. Evaluation Situation Follow up visit Background Baby Girl is 6 hours old, born weighing 2920g. Gestational Age: 40w0d at FEEDING STATUS Formula supplementation via bottle MATERNAL STATUS Assessment & Recommendation ASSISTANCE Assisted mom with positioning and asymmetrical latch technique in the football hold. She was able to achieve a deep latch. The baby suckled in coordinated bursts with audible swallows. Mom's nipple was rounded upon release. Mom able to easily express colostrum. Taught hand expression to encouraged latch and for nipple care. Reviewed position and latch techniques. Mom denies pain with feeding. Mom was approved for a breat pump from [employer] but would not like to receive it until time of discharge. education provided. All questions answered. Mom does not have any other questions or concerns at this time. Mom instructed on how to contact Electronic Imaging System Operator for assistance with feedings or to answer questions while in the hospital. Mom Verbalized understanding. Assessment (most recent) Assessment - 04/04/24 1600 General Information Visit Follow-up Mom's age (years) 34 years Gestational age 40 weeks 6 Parity 6 Living Children 6 Feeding plan Breast and Formula Breastfeed previously No Used pump previously No plans As long as possible Breast Pump Has Breast Pump Electric Delivery method Infant Oral Assessment Oral assessment No changes from previous assessment Date of 04/04/24 Time of 0851 Infant location Mother Baby Unit Breast Assessment Breast Assessment No change from previous assessment Nipple & Areola Assessment Left Areola Pliable Right Areola Pliable Left Nipple Colostrum visible;Everted Right Nipple Colostrum visible;Everted Literature Resources Resources Understanding Mother and Baby Care Education hunger cues;On-demand feeds at least 8 or more over 24 hours;Benefits of breastmilk;Hand expression;Risk of formula supplementation;Delay of pacifier/artificial nipples up to 4 weeks;Benefits of skin to skin contact;Signs of an effective latch; stomach size;2nd day/growth spurt cluster feeds;Calming techniques;Position changes;Breaking seal;Burping;Impact of stress and milk supply;Benefits of breast massage and hand expression Handouts given Samoan Electronic Imaging System Operator Observation Assist with latch Position right side Football; latched effectively;Suckled in coordinated bursts;Audible swallows Interventions Motherlove nipple cream;Breast massage;Taught hand expression Mother demonstrated teach back of Positioning and latching at breast;Breast massage and hand expression Follow up Mom will call staff Recommended Feeding Plan Recommended feeding plan On-demand , 8-12 times in 24 hours not to exceed 6 hours between feeds;Frequent [id number] time with parents;Pump/hand express minimum 8 times in 24 hours including nights. Pump for 15-25 min. OTHER $ SERVICES Follow-up SILVANA To, RN, IBCLC [facility] 2024-04-04 13:38:49 Patient: Suzie Austin Procedure Summary Date: 04/04/24 Room / Location: Anesthesia Start: 0250 Anesthesia Stop: 1054 Procedure: CENTRAL NEURAXIAL BLOCK Diagnosis: Scheduled Providers: Responsible Provider: Edi Carlisle MD Anesthesia Type: Epidural ASA Status: 2 Anesthesia Type: Epidural Last vitals BP Temp Pulse Resp SpO2 There were no known notable events for this encounter. Anesthesia Post Evaluation Comments: Anesthesia HOMER Post Operative Faculty Note Date of service: 04/04/2024 Patient is s/p labor epidural placement and removal. Patient examined, patient awake. Patient participation in post anesthesia evaluation: Block not fully resolved, as expected. Patient participated otherwise. Patient advised about fall precautions. Vital Signs: BP 117/65 (BP Location: Right arm, Patient Position: Sitting) | Pulse 68 | Temp 36.6 ?C (97.8 ?F) (Temporal Artery) | Resp 18 | LMP 06/18/2023 | SpO2 97% | Unknown Pain: Scale used: 0 - 10 Ratin Nausea and vomiting: Not present. Post operative/post procedure hydration status: Euvolemic. Post-operative course: Block resolving appropriately, and patient advised about fall precautions as noted above. Complications: No apparent complications Edi Carlisle MD 04/04/2024 13:38 AN-ANESTHESIOLOGY ANESTHESIOLOGIST [facility] 2024-04-04 09:36:20 DELIVERY BY SPONTANEOUS VAGINAL DELIVERY Delivery Date: 04/04/2024 Delivery Time: 8:51 AM Delivery Summary Suzie Austin is a 34 year old female @ 40w0d The patient was admitted to the Labor & Delivery unit for delivery at 40 weeks due to PROM. Delivery Physician: Bj Fraire MD Intrapartum Anesthesia/Analgesia: Epidural Mode of Delivery: Delivery of grossman fetus with cephalic presentation Fetus Spontaneous vaginal delivery of head with cephalic position, right occipital anterior. As the head crowned and distended the perineum, no episiotomy was performed. A blue towel was used to protect the perineum as the head crowned and delivered. The other hand was used to exert pressure on the occiput to control the delivery of the head. The perineum was pushed with a towel-draped hand as the head and mouth was delivered over the perineum. The head was allowed to rotate externally to achieve natural body posture. Examination of neck revealed no umbilical cord. The shoulder was delivered by gentle downward traction applied to head and downward traction for the delivery of anterior shoulder. This was followed by upward traction with delivery of posterior shoulder and body. After the delivery of infant, bulb suction was performed from ororpharynx and nostril with removal of clear amniotic fluid. A normal, female was delivered. The umbilical cord was double clamped, cut and the infant was handed off the field to the circulating nurse Placenta Placenta was delivered spontaneously while the abdominal hand lifted the uterus cephalad and other hand keeping the umbilical cord slightly taut. Laceration: First degree midline perineal laceration Laceration Repair: Minor - lacerations (perineum, sidewall, labial, vaginal floor and/or periurethral) were closed with continuous sutures. . Fourth Stage Fourth stage of labor was managed by uterine massage with abdominal hand and infusion 30 units of pitocin mixed with intravenous fluid. EBL: 50 Complications: None Weight: 2920 g 1 Minute 5 Minute 10 Minute Totals: 9 9 Bj Fraire MD 04/04/2024 9:37 AM [facility] 2024-04-04 09:15:00 This note was copied from a baby's chart. Evaluation Situation Initial visit Background Baby Boy is 1 hour old, born weighing 2920g. Gestational Age: 40w0d at FEEDING STATUS Formula supplementation via bottle MATERNAL STATUS Assessment, Recommendations, Education Assisted mom with positioning and asymmetrical latch technique in the cradle hold. Initially the baby was latched shallow, but after giving more neck and back support she was able to achieve a deeper latch. The baby suckled in coordinated bursts with audible swallows. Mom's nipple was rounded upon release. Mom instructed on how to contact Electronic Imaging System Operator for assistance with feedings or to answer questions while in the hospital. Mom Verbalized understanding. Assessment (most recent) Assessment - 04/04/24 0915 General Information Visit Initial Mom's age (years) 34 years Gestational age 40 weeks 6 Parity 6 Living Children 6 Feeding plan Breast and Formula Breastfeed previously No Used pump previously No plans As long as possible Breast Pump Ordered Delivery method Oral Assessment Oral assessment New assessment Date of 04/04/24 Time of 0851 Infant location Mother Baby Unit Chin Normal Palate assessment Normal Tongue assessment Normal Restricted tongue motion observed None Breast Assessment Symmetry Symmetrical Size M (B-C) Shape Rounded Nipple & Areola Assessment Left Areola Pliable Right Areola Pliable Left Nipple Colostrum visible;Intact;Everted Right Nipple Colostrum visible;Intact;Everted Literature Resources Resources Understanding Mother and Baby Care Education hunger cues;On-demand feeds at least 8 or more over 24 hours;Risk of formula supplementation;Delay of pacifier/artificial nipples up to 4 weeks;Benefits of skin to skin contact;Signs of an effective latch;Infant stomach size;Position changes;Breaking seal Handouts given Samoan Electronic Imaging System Operator Observation Assist with latch Position right side Cradle; latched effectively;Suckled in coordinated bursts;Audible swallows Interventions Motherlove nipple cream Mother demonstrated teach back of Positioning and latching infant at breast Follow up Mom will call staff;Follow up in hospital Recommended Feeding Plan Recommended feeding plan On-demand , 8-12 times in 24 hours not to exceed 6 hours between feeds;Frequent nzoz-my-qmzm time with parents;Pump/hand express minimum 8 times in 24 hours including nights. Pump for 15-25 min. OTHER $ SERVICES Initial SILVANA To, RN, IBCLC [facility] 2024-04-04 03:16:27 Name/ MRN / Age / Gender: Suzie Austin, [id number] 34 year old female BMI: Estimated body mass index is 24.91 kg/m? as calculated from the following: Height as of an earlier encounter on 04/04/24: 1.6 m (5' 3"). Weight as of an earlier encounter on 04/04/24: 63.8 kg (140 lb 9.6 oz). Allergies: Patient has no known allergies. Last Vitals: BP Readings from Last 1 Encounters: 04/04/24 120/79 Pulse Readings from Last 1 Encounters: 04/04/24 88 SpO2 Readings from Last 1 Encounters: 04/04/24 99% Date of Surgery: 04/04/2024 Surgeon: * No surgeons listed * Procedure: CENTRAL NEURAXIAL BLOCK OR Location: [place] [facility] OUT OF OR - OR LOCATION Anesthesia Preop Eval (physical exam) Anesthesia Preop: Chart Review and [id number] Anesthesia History Anesthesia History Negative (-) Fam hx of anesthetic complications Previous Anesthetics/Airways Cardiovascular Negative Cardiac ROS Pulmonary Negative Pulmonary ROS Neuro/Musculoskeletal Negative Neuro/Musculosketal ROS GI/Hepatic (+) GERD Hematology Comments: CBCWBC x10 3 (/CMM) Date Value 09/02/2010 7.9 WBC (10*3/?L) Date Value 04/04/2024 14.08 (H) RBC x10 6 (/CMM) Date Value 09/02/2010 4.24 RBC (10*6/?L) Date Value 04/04/2024 3.61 (L) PLT x10 3 (/CMM) Date Value 09/02/2010 310 PLT (10*3/?L) Date Value 04/04/2024 261 HGB Date Value 04/04/2024 10.9 g/dL (L) 09/02/2010 12.3 G/DL HCT (%) Date Value 04/04/2024 31.7 (L) 09/02/2010 37.4 (+) Anemia Renal Negative Renal ROS Comments: BMPNA (mmol/L) Date Value 09/28/2023 134 (L) K (mmol/L) Date Value 09/28/2023 3.8 CALCIUM (mg/dL) Date Value 09/28/2023 9.2 CL (mmol/L) Date Value 09/28/2023 105 BUN (mg/dL) Date Value 09/28/2023 9 CREATININE (mg/dL) Date Value 09/28/2023 0.34 (L) GLUCOSE (mg/dL) Date Value 09/28/2023 78 CO2 TOTAL (mmol/L) Date Value 09/28/2023 23 Skin Endo/Other Negative Endo/Other ROS 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 Hold on DOS. Phentermine: Alert [facility] anesthesiologist SGLT2 Inhibitors: "gliflozins" to be held for 3 days prior to elective surgeries GLP1 Agonosit: stop 7 days prior to surgery MAC Cases: Continue taking ZOILA inhibitors and ARBs ASA Classification ASA: 2 Labs: Chemistry 09/28/2023 CBC 04/04/2024 134 (L) 105 9 78 14.08 (H) 10.9 (L) 261 3.8 23 0.34 (L) 31.7 (L) eGFR: 140.4 Date: 09/28/2023 ANC: 9.77 (H) Date: 04/04/2024 LFTs 09/28/2023 Coags AST: 35 AP: 83 Prot: 7.4 Ca: 9.2 PT: - Date: - ALT: 27 T Ruddy: 0.4 Alb: 4.3 PTT: - Date: - PO4: - Date: - INR: - Date: - Cardiac Endocrine & other pBNP: - Date: - A1C: - Date: - Trop I: - Date: - POCT A1C: - Date: - CK: - Date: - TSH: - Date: - CKMB: - Date: - FT4: - Date: - LDL: - Date: - Lact: - Date: - Procal: - Date: - Respiratory -|-|-|-|- D-dimer: - ABG Date: - Date: - Miscellaneous Type and Screen: B POSITIVE Antibody: Negative Date: 12/11/2023 POCT : Positive Date: 10/11/2023 Current Medications: No outpatient medications have been marked as taking for the 04/04/24 encounter (Hospital Encounter). Previous Surgeries: No past surgical history on file. Anesthesia Physical Exam General no apparent distress and alert and oriented x 3 Neuro/Psych Dental no notable dental hx Abdominal (+) gravid Airway Mallampati score:II TM distance:> 5 cm Neck ROM: full Mouth opening:normal Extremity Pulmonary bilateral clear to auscultation Other Cardiovascular Rate: normal Anesthesia Plan ASA Status: 2 Anesthetic plan on DOS: Epidural Anesthesia plan discussed with: patient or ict sales representative Post-Operative Analgesia: routine analgesia & antiemetics Recovery Plan: LDR Additional comments: AN-ANESTHESIOLOGY ANESTHESIOLOGIST [facility] 2024-04-04 01:53:46 Problem: Pain Goal: Control of pain at or below patient's documented comfort goal Outcome: Progressing as expected Goal: Reduction in pain sensation Outcome: Progressing as expected Problem: Intrapartum process (including labor pain) Goal: Absence of or reduction of complications of labor Outcome: Progressing as expected Goal: Able to cope with pain Outcome: Progressing as expected Goal: Adequate to move to next level of care Outcome: Progressing as expected Goal: Reduction in pain sensation Outcome: Progressing as expected Problem: Bleeding, Risk of Goal: Absence of impaired coagulation signs and symptoms Outcome: Progressing as expected Goal: Absence of active bleeding Outcome: Progressing as expected [facility] 2024-04-02 15:30:00 Age: [age] year old GA: 39w5d Doing well GERD -on Pepcid Desires SVE. SVE 09/28/ballotable. Cephalic presentation not appreciated. Ultrasound showed breech presentation with head to maternal right. Breech presentation - Patient has been counseled regarding risks/benefits of ECV. Patient understands that if fetus is still breech presentation at 39-40 weeks, then it is an indication for section as it is not safe to proceed with a vaginal delivery. There is a chance that the fetus will turn to cephalic on its own. Risks of ECV includes rupture of membrane, cord prolapse, placental abruption, distress, need for emergent and associated risks with emergent . These occurred less than 1% of the time. There is also a risk that the procedure may be unsuccessful and even if successful, fetus may return to breech presentation on its own. If fetus remains breech, then we will have to proceed with at 39-40 weeks unless indicated otherwise. If fetus remains cephalic, then patient can have a trial of labor at 39-40 weeks unless indicated otherwise. -Patient wants to proceed with ECV on 04/04/2024 unless clinically indicated otherwise. Patient has to go to her nephew " " tomorrow. -If ECV is successful, patient agree to proceed with induction on 04/04/2024. If ECV not successful, patient wants to proceed with primary CD. MPDPS -Tubal consent signed on 02/14/2024 -All questions answered, and patient expressed her desire to proceed with bilateral salpingectomy. HSV 1 and 2 IgG positive -on Suppression GBS negative on 03/06/2024 Daily kick counts and labor precautions given Follow-up in 4 to 6 weeks for visit [facility] 2024-03-26 16:00:00 Age: [age] year old GA: 38w5d Doing well GERD -Tums not helping -Pepcid prescribed Irregular contractions -SVE /ballotable Patient awaits spontaneous labor MPDPS -Tubal consent signed on 02/14/2024 -All questions answered, and patient expressed her desire to proceed with bilateral salpingectomy. HSV 1 and 2 IgG positive -on Suppression GBS negative on 03/06/2024 Daily kick counts and labor precautions given Follow-up in 1 week for visit [facility] 2024-03-06 15:30:00 Images from the original note were not included. Venipuncture collection performed by clean technique on the left anticubitus. Total of 1 attempts were made. Slight pressure and a bandage/dressing were applied to the site(s). The patient experienced no complications. The following specimens were processed according to instructions and sent to [facility] laboratories per lab order on 03/06/2024 : LT BLUE SST RED LAV 1 PPT DK GREEN (LiHep) DK GREEN (SodH) AQUINO DK BLUE (K2) DK BLUE (S) ACD Blood Culture NIPT/NTD [facility] 2024-03-06 15:00:00 Age: [age] year old GA: 35w6d Doing well without concerns today Irregular contractions -SVE closed/thick/high - labor precautions given Patient await spontaneous labor MPDPS -Tubal consent signed on 02/14/2024 -All questions answered, and patient expressed her desire to proceed with bilateral salpingectomy. HSV 1 and 2 IgG positive -Suppression ordered This reviews what Dr. Fraire talked about at your 36 week talk: 1. Go to Labor and Delivery when your contractions are 5-7 minutes apart and you have been able to time them for an hour. If you live more than 30 minutes from the hospital, then go when they are 10 minutes apart and you have been able to time them for an hour. 2. BUT, there are 4 reasons to go to Labor and Delivery REGARDLESS of what else is happening, whether you are johanna or not: 1. If your water breaks - - - it may be a gush or a constant trickle. If you are not sure, always come in to be checked. 2. Bleeding like your period. 3. If your baby's movements are less than 10 in an hour. If you are concerned this might be the case, drink a tall glass of cold fluids, lay down on your side on the couch or your bed and see how long it takes to note 10 movements - if less than 10, this needs to be evaluated immediately. 4. Contractions or Pain that is continuous. Normal labor contractions last only 45 seconds - 1 minute. Cephalic presentation GC/CT and GBS obtained, CBC ordered Zika precautions reviewed Contraception PP: Bilateral salpingectomy Delivery consent signed today RTC in ~10 days for visit with ADMINISTRATIVE UNDERWRITER Follow-up in ~2.5 weeks for visit with Fraire [facility] 2024-02-28 16:00:00 Age: [age] year old GA: 34w6d ASSESSMENT: Suzie Austin is a 34 year old at 34w6d who presents for routine visit. Patient Active Problem List Diagnosis High-risk in third trimester Positive test for herpes simplex virus (HSV) antibody Encounter for tubal ligation counseling PLAN 1. High-risk in third trimester 2. 34 weeks gestation of - POCT Urinalysis w/o Specific [place]- negative protein and glucose Growth scan- 02/26- Normal, cephalic presentation. Anterior placenta w/o previa. 3. Positive test for herpes simplex virus (HSV) antibody She denies any sxs today. Will start suppressive therapy at 35- 36 weeks. 4. Varicose veins of legs, antepartum - Compression socks for varicose veins bilaterally to ankles. She verbalized understanding --All questions answered RTC with Dr. Fraire in 2 weeks or twin Loaiza DNP, SEWER AND CUTTER FINGER BUFF MATERIAL- 02/28/2024 at 4:38 PM [facility] 2024-02-14 16:15:00 Age: [age] year old GA: 32w6d Doing well without concerns today. MPDPS -Tubal consent signed today - "I counseled the patient regarding risks, benefits and alternatives of laparoscopic Bilateral Tubal Ligation. Explained that it is a surgical procedure that is done by ligating/cutting/occluding a segment of the tubes;hence, it is a permanent form of control that requires a surgical procedure for reversal (if she changes her mind afterwards), which might not be successful and increases the risk of ectopic if does eventually occur. Risks include but not limited to: infection, bleeding, need for transfusion of blood/blood products, injury to ureter, bladder, bowel with possible further surgery, stint, catheterization or colostomy to repair, conversion to open. The permanence of this procedure and risk of regret in 1 in 3 women were discussed. tubal ligation failure rate is 0.75% and higher in women younger than 30 years old. There is an increased risk for ectopic and the need to seek medical attention should failure of tubal ligation occur. Alternatives discussed include: Oral Contraceptive Agents, Intrauterine Device, Nexplanon, Depo Provera, Ring, Patch, Condoms/foam, vasectomy of partner, or bilateral salpingectomy. Salpingectomy has been shown to decrease risk of ovarian cancer, similar to tubal ligation; however, no tubal reversal will be able to be done in the future and might be able to achieve with in vitro fertilization only. 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 - FOB was tested and was negative for CF and SMA. Will have staff reach out to [facility] to see why Femyz-Uaryg-Jciky syndrome was not tested for FOB. Patient stated that her other child has "XYY ". - Genetics counseling scheduled for 12/08/2023 and was canceled. Anatomy scan on 12/07/2023: No obvious abnormalities. Follow-up ultrasound scheduled for 02/20/2024 Declined Tdap vaccine 28-week labs and serologies within normal limits 3rd trimester teaching done- reviewed S/S of PTL (contractions, leakage of fluid and Vaginal bleeding) and also Kick Counts. Also dicussed [place]-Lin, pelvic and lower back pains- expectations and differenced with S/S of PTL She plans to breast fed BC options reviewed- opted for bilateral salpingectomy Electronics Recycler: Dr. Martins Encourage patient to bring in wishes if she has any. Follow-up in 2 wks for PN with ADMINISTRATIVE UNDERWRITER Follow-up in 4 weeks for visit with Yee T [facility] 2024-01-09 11:15:00 Age: [age] year old GA: 27w5d PLAN 1. High-risk in second trimester CARRIER for Zxsgj-Zfppd-Sulxs Syndome- FOB neg for CF & Spinal muscular atrophy - Notified pt of result 2. 27 weeks gestation of - POCT Urinalysis w/o Specific [place]- negative for protein and glucose labor precautions reviewed -All questions answered F/u with Dr. Fraire in 3 weeks Melchor Loaiza DNP, SEWER AND CUTTER FINGER BUFF MATERIAL-BC 41:10 PM T [facility] 2023-12-28 14:27:35 Received partner [facility] via fax. Negative 2/2 diseases: Cystic fibrosis and spinal muscular atrophy. Dillon Oscar RN 12/28/2023 2:28 PM Dillon Oscar RN [facility] 2023-12-11 10:30:00 Loaded pt w 50gm fruit punch glucola, no issues. Draw time:1124 [facility] 2023-12-11 10:30:00 Images from the original note were not included. Venipuncture collection performed by clean technique on the left anticubitus. Total of 1 attempts were made. Slight pressure and a bandage/dressing were applied to the site(s). The patient experienced no complications. The following specimens were processed according to instructions and sent to [facility] laboratories per lab order on 12/11/2023 : LT BLUE SST 2 RED 1 LAV 2 PPT DK GREEN (LiHep) DK GREEN (SodH) AQUINO DK BLUE (K2) DK BLUE (S) ACD Blood Culture NIPT/NTD [facility] 2023-12-07 10:30:00 Age: [age] year old GA: 23w0d Doing well without concerns today. Patient states she needs a prescription for vitamins. Informed patient that she has a prescription and has 6 refills. HSV 1 and 2 IgG positive -Suppression at 35 to 36 weeks unless clinically indicated otherwise [facility]: Carrier for Ipzzk-Pxlwjl-Jxzny syndrome. Patient is aware and FOB will get tested. Patient stated that her other child has "XYY ". Genetics counseling scheduled for 12/08/2023 Anatomy scan scheduled for 12/07/2023 28-week labs and serologies ordered Follow-up in 4 wks for PN with ADMINISTRATIVE UNDERWRITER Follow-up in 7 weeks for visit with Yee [facility] 2023-12-01 14:10:17 Name and verified. Pt calling for FOB results. Advised pt that ot needs to be redrawn. Will black pickler kit at next visit. MOLLY SIBLEY RN 12/01/2023 2:10 PM Molly Sibley RN [facility] 2023-12-01 12:33:23 Summary: spouse returning call Spouse returning call for lab results. Spouse indicated patient is with him. Kavitha Forte [facility] 2023-11-09 15:08:45 Returned patients call. Patient wanting to know if she has been tested for HSV in the past. Patient advised we do not have records of her being tested for HSV. Patient wanting to know if she was tested in previous pregnancies at outside facility. Patient advised we do not have records from outside facility. Patient advised we will need release of records for previous OB. Patient wanting to know if her [facility] carrier screen is the same positive carrier as her previous test. Patient advised we do not have records. Patient advised of ultrasound appointment and genetic appointment. Patient reports no other question or concerns. Release of records sent via [employer]. Dillon Oscar RN 11/09/2023 3:16 PM NT SUCCESS DIRECTOR Dillon Oscar RN [facility] 2023-11-09 11:18:51 Patient says she has more questions about results that were discussed with her yesterday. Luna [facility] 2023-11-08 10:45:00 Images from the original note were not included. Age: [age] year old GA: 18w6d Received records from help Center -LMP 06/18/2023; DANIEL based on LMP 03/24/2024 -DANIEL based on ultrasound 04/04/2024; single live IUP measures 6 weeks and 1 day on 08/11/2023 ultrasound -Ultrasound on 09/26/2023: 12 weeks and 5 days, single live IUP Varicose veins -Small varicose veins noted on her feet -Discussed compression stockings HSV 1 and 2 IgG positive -Reports history of oral herpes. 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 Patient is aware and FOB will get tested. Patient stated that her other child has "XYY ". Genetics counseling ordered. Maternal serum AFP negative Anatomy scan scheduled for 11/16/2023 Follow-up in 4 wks for PN [facility] 2023-11-01 16:56:09 Received [facility] results via fax. Placed on provider's desk for review. Per DR. Fraire- offer FOB testing and genetic counseling. Name and verified. Pt advised of above. Pt stated that other child has "XYY". Will have FOB tested. Will come by office to black pickler kit and lab order. I will send report via mychart and do genetic referral. Verbalized understanding. MOLLY SIBLEY RN 11/01/2023 4:56 PM NT SUCCESS DIRECTOR Molly Sibley RN [facility] 2023-10-23 11:34:07 Name and verified. Pt is unable to log into [facility]. Pt given Panorama results. Verbalized understanding. MOLLY SIBLEY RN 10/23/2023 11:34 AM NT SUCCESS DIRECTOR Molly Sibley RN [facility] 2023-10-23 11:04:59 Pt says she keeps getting messages from Priya but can't log in. Luna [facility] 2023-10-20 10:27:49 Spoke with patient, states that she did [facility] testing Monday. Patient was able to get into portal but its not showing any thing and now asking for authentication factor. Informed patient to give it a little time to process as it can take 2 weeks for results to process and see if she can log in about a week, if not give office a call back regarding results. Patient verbalized understanding. Beverley Martinez RN 10/20/2023 10:29 AM NT SUCCESS DIRECTOR Beverley Martinez RN [facility] 2023-10-20 09:11:11 Pt spouse is calling says they need some help with Priya they are logged in but they are stuck on a step and want to see if they can get info. They got text from Priya to log in but they can't. Luna [facility] 2023-10-17 09:35:36 Received records from [facility] -LMP 06/18/2023; DANIEL based on LMP 03/24/2024 -DANIEL based on ultrasound 04/04/2024; single live IUP measures 6 weeks and 1 day on 08/11/2023 ultrasound -Ultrasound on 09/26/2023: 12 weeks and 5 days, single live IUP Bj Fraire MD 10/17/2023 9:37 AM [facility] 2023-10-16 10:54:52 Returned patients call. Patient advised that priya results are still processing at this moment. Patient will be contacted when results are available. Dillon Oscar RN 10/16/2023 10:55 AM NT SUCCESS DIRECTOR Dillon Oscar RN [facility] 2023-10-16 09:57:55 Patient is requesting priya results. She states she is unable to log in. NT SUCCESS DIRECTOR Jane Odell [facility] 2023-10-12 09:15:00 Given 50gm fruit punch glucola without problems. Finished at 0940. [facility] 2023-10-12 09:15:00 Images from the original note were not included. Venipuncture collection performed by clean technique on the left anticubitus. Total of 1 attempts were made. Slight pressure and a bandage/dressing were applied to the site(s). The patient experienced no complications. The following specimens were processed according to instructions and sent to [facility] laboratories per lab order on 10/12/2023 : Priya collected and shipped. LT BLUE SST 7 RED 1 LAV 1 PPT DK GREEN (LiHep) DK GREEN (SodH) AQUINO DK BLUE (K2) DK BLUE (S) ACD Blood Culture NIPT/NTD Patient has been identified by and name and was provided with cup, antiseptic towelette, and clean catch instructions. 1 urine specimen(s) sent. Unpreserved Urine Culture 1 Aptima tube Other urine [facility] 2023-10-12 08:38:33 Reviewed medical records from [facility]. Placed on provider's desk for review. Tin[facility] 2023-10-11 10:00:00 Age: [age] year old GA: 14w6d u (6) Had ultrasound at [facility] on 08/11/2023; EGA 6 weeks and 1 day. DANIEL 04/04/2024. Will date by this ultrasound unless clinically indicated otherwise Also had an ultrasound on 09/28/2023 at [facility] ER. EGA 12 weeks and 5 days New OB labs today. No complaints. Discussed do's and don'ts of , safe foods, safe medications. Reviewed Zika virus precautions. I discussed the call schedule and that I might not be the physician delivering her. I discussed I deliver my patients at [facility]. Expectations for weight gain this include 25-35 pounds. Encouraged to call if have any additional questions or concerns. Discussed aneuploidy and carrier screening; patient opts for panorama and Horizon. Maternal serum AFP ordered. Anatomy ultrasound ordered. Have not received COVID/flu vaccines. Counseled and recommend COVID vaccines. Patient declined Discussed about COVID-19/flu precautions. Social distancing, frequent hand washings, wearing face mask, signs/symptoms for testing and to follow CDC recommendations discussed. Denies history of abnormal Pap smear. Pap smear possibly in 2021 at [place]. Discussed with patient that she can have HEALTHY support with her during her delivery (which is subject to change depends on the COVID pandemic) Next visit in 4 week [facility] 2023-10-11 10:00:00 Addended by: MELISSA CABALLERO MA on: 10/11/2023 11:18 AM Modules accepted: Orders [facility] 2023-09-28 23:47:09 Pt given printed and verbal discharge instructions Prescriptions provided Discussed antibiotic therapy and to take until all completed unless adverse reaction occurs - if occurs, discontinue medication and follow up with pcp/seek medical attention Pt verbalized understanding of instructions, pt awake alert oriented, resp reg unlabored, skin w/d, color appropriate for race, moves all ext well,pt encouraged to follow up with pcp and 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 Advised to seek medical attention for new/prolonged/worsening of symptoms, No adverse reaction to meds given in ER noted upon discharge PIV d'cd, dressing to site, catheter in tact. Awake, alert oriented, resp reg unlabored, skin w/d, pt leaving amb with steady gait, in no apparent distress NT SUCCESS DIRECTOR Beena Larios RN [facility] 2023-09-28 19:45:31 Summary: US Waiting on positive hcg for call out Marquez [facility] 2023-09-28 18:58:12 Pt arrives ambulatory to ED reporting that she is aprox 13 weeks and began spotting this am. She has only had to use 2 panty liners and it is only a small amt of brownish blood. She says this is # 6 and she has never had this happen before so she became concerned and came in. No pain reported. She says she has been unable to get care set up yet and has only been to the help center. Ramachandran RN [facility]
[2024-11-12 05:24] LABS: Absolute Eosinophils 0.3 K/uL (0-0.5); Absolute Lymphocytes (CBC) 2.3 K/uL (0.7-4.9); Absolute Neutrophil 11.6 K/uL (1.8-8.0); Basophils % 0.2 % (0-1.3); Eosinophils % 1.9 % (0-4.4); Hematocrit 40.5 % (36.0-45.0); Hemoglobin 13.7 g/dL (12.0-15.0); Lymphocytes % 15.4 % (15.3-44.8); MCH 27.2 pg (27.0-35.0); MCHC 33.8 g/dL (32.0-36.0); MCV 80.4 fL (80-100); MPV 9.7 fL (7.6-11.3); Monocytes % 6.3 % (3.3-12.3); Neutrophils % 76.2 % (41.7-73.7); Platelets 349 thou/uL (152-406); RBC Red Blood Cell Count 5.04 M/uL (3.86-4.86); Red Cell Distribution Width 12.6 % (12.1-15.2)
[2024-11-12 05:37] LABS: Albumin 3.8 g/dL (3.4-5.0); Anion Gap 9.8 mEq/L (5.0-15.0); Bilirubin Total 0.5 mg/dL (0.2-1.0); Globulin 3.9 g/dL (2.3-3.5); Potassium 3.8 mEq/L (3.5-5.1); Protein, Total 7.7 g/dL (6.4-8.2)
--- NOTE | 2024-11-12 08:15 | RAD REPORT ---
EXAMINATION: CT Abdomen Pelvis W Contrast CLINICAL INDICATION: Female, 34 years old. EPIGASTRIC PAIN TECHNIQUE: CT abdomen and pelvis was performed, after the administration of IV contrast, as per [facility] protocol. Axial, sagittal and coronal reconstructions were obtained. One or more of the following dose reduction techniques were used: Automated exposure control, adjustment of the mA and k V according to patient size, and iterative reconstruction. Unless otherwise specified, incidental findings do not require dedicated imaging follow-up. COMPARISON: No prior exam. FINDINGS: LOWER CHEST: The visualized lung bases are clear. LIVER: Normal in size and contour. No focal lesion. BILIARY SYSTEM: Gallbladder is decompressed limiting evaluation. No other suspicious abnormalities. SPLEEN: Normal size. No focal lesion. PANCREAS: No mass, ductal dilation, or heri-pancreatic fluid. ADRENALS: Normal; no mass. KIDNEYS: Normal size and contour. No hydronephrosis. URINARY BLADDER: Unremarkable. GASTROINTESTINAL TRACT: Long segment of small bowel wall thickening, mucosal mild hyperenhancement, a nd intramural edema involving the distal ileum including the terminal ileum, with wall prominence most pronounced distally. Trace free fluid in the pelvis. No evidence of free air, bowel obstruction or abscess. No findings to suggest a fistula tract or abnormal fluid collections. APPENDIX: Normal appendix. LYMPH NODES: No lymphadenopathy. MUSCULOSKELETAL: No acute or suspicious osseous abnormality. ADDITIONAL FINDINGS: None. IMPRESSION: Long segment of distal small bowel inflammatory changes, involving the terminal ileum, with trace pel maureen free fluid, suggesting infectious or inflammatory enteritis. No evidence of complications.
[2024-11-12] MEDS ORDERED: FAMOTIDINE 20 MG/2 ML VIAL IV ONE (08:20)
--- NOTE | 2024-11-12 08:25 | RAD REPORT ---
EXAMINATION: US Abdomen Exam Limited CLINICAL HISTORY: ABD PAIN COMPARISON: None. TECHNIQUE: Limited upper abdominal grayscale and color flow sonographic images. FINDINGS: Gallbladder: Decompressed limiting evaluation. No wall thickening or pericholecystic fluid. Bile ducts: No intrahepatic or extrahepatic biliary dilatation. Common bile duct measures 4 mm. Liver: Visualized portions of the liver demonstrate normal echogenicity with no suspicious findings. Fluid: No ascites. IMPRESSION: Limited evaluation given bladder contraction. Allowing for this, no acute findings noted.
--- NOTE | 2024-11-12 08:43 | ER ---
Nurse's Notes [facility] Name: Suzie Mak Age: 34 yrs Sex: Female : 1990 Arrival Date: 11/12/2024 Time: 04:14 Bed 5 Private MD: Diagnosis: Infectious gastroenteritis and colitis, unspecified Presentation: 11/12 04:52 Chief complaint: Patient states: I have a pain that starts at the bottom of my sternum kd3 and radiates into both sides of the bottom of my ribs and down into my belly. It started yesterday. I cant tell if it gets worse when i eat. The pains come and go and cause me to have nausea. Coronavirus screen: Vaccine status: Patient reports being unvaccinated. Ebola Screen: No symptoms or risks identified at this time. Initial Sepsis Screen: Does the patient meet any 2 criteria? No. Patient's initial sepsis screen is negative. Does the patient have a suspected source of infection? No. Patient's initial sepsis screen is negative. Risk Assessment: Do you want to hurt yourself or someone else? Patient reports no desire to harm self or others. Onset of symptoms was November 12, 2024. 04:52 Method Of Arrival: Ambulatory kd3 04:52 Acuity: BRIANNA 3 kd3 Triage Assessment: 04:55 General: Appears uncomfortable, Behavior is calm, cooperative. Pain: Complains of pain kd3 in epigastric area. GI: Abdomen is non-distended. Historical: - Allergies: 04:55 No Known Allergies; kd3 - Immunization history:: Adult Immunizations up to date. - Infectious Disease History:: Denies. - Family history:: not pertinent. - Social history:: Smoking status: Patient reports the use of cigarette tobacco products, smokes one-half pack cigarettes per day. Screenin:56 [facility] ED Fall Risk Assessment (Adult) History of falling in the last 3 months, kd3 including since admission No falls in past 3 months (0 pts) Confusion or Disorientation No (0 pts) Intoxicated or Sedated No (0 pts) Impaired Gait No (0 pts) Mobility Assist Device Used No (0 pt) Altered Elimination No (0 pt) Score/Fall Risk Level 0 - 2 = Low Risk Maintained a safe environment. Abuse screen: Denies threats or abuse. Denies injuries from another. Nutritional screening: No deficits noted. Tuberculosis screening: No symptoms or risk factors identified. Assessment: 04:56 GI: Bowel sounds present X 4 quads. Abd is soft X 4 quads. kd3 08:29 Reassessment: Patient and/or family updated on plan of care and expected duration. Pain ap3 level reassessed. Patient is alert, oriented x 3, equal unlabored respirations, skin warm/dry/pink. General: Appears in no apparent distress. Behavior is calm, cooperative, appropriate for age. Pain: Complains of pain in abdomen. Neuro: Level of Consciousness is awake, alert, obeys commands, Oriented to person, place, time, situation. Cardiovascular: Patient's skin is warm and dry. Respiratory: Airway is patent Respiratory effort is even, unlabored, Respiratory pattern is regular, symmetrical. Vital Signs: 04:52 BP 130 / 69; Pulse 99; Resp 19; Temp 99.2(O); Pulse Ox 100% on R/A; Weight 52.5 kg; kd3 Height 5 ft. 3 in. ; 05:46 BP 124 / 74; Pulse 103; Resp 19; Pulse Ox 98% on R/A; kd3 06:19 BP 124 / 60; Pulse 98; Resp 18; Pulse Ox 97% on R/A; kd3 08:29 BP 122 / 73; Pulse 108; Resp 17; Pulse Ox 100% ; ap3 04:52 Body Mass Index 20.50 (52.50 kg, 160.02 cm) kd3 ED Course: 04:17 Patient arrived in ED. gm2 04:19 Jh Gallegos MD is Attending Physician. rt 04:34 Cyndi Acharya, GRECIA is Primary Nurse. kd3 04:46 Radiology exam delayed due to test not completed at this time. vm2 04:55 Triage completed. kd3 04:55 Arm band placed on right wrist. kd3 04:56 Patient has correct armband on for positive identification. Provided Education on: kd3 antibiotic use . Pulse ox on. NIBP on. 04:57 No provider procedures requiring assistance completed. Inserted saline lock: 20 gauge kd3 in right antecubital area, using aseptic technique. Blood collected. Flushed with 10 mL NS. 04:58 Lipase Sent. kd3 04:58 CMP Sent. kd3 04:58 CBC with Diff Sent. kd3 04:58 Test, Serum Sent. kd3 04:58 Initial lab(s) drawn, by hi, sent to lab. kd3 06:01 CT Abd/Pelvis - IV Contrast Only In Process Unspecified. EDMS 07:06 Attending Physician role handed off by Jh Gallegos MD rn 07:06 Nnamdi Dooley MD is Attending Physician. rn 07:32 US Abdomen Limited In Process Unspecified. EDMS 09:33 IV discontinued, intact, bleeding controlled, No redness/swelling at site. ld1 Administered Medications: 08:27 Drug: Famotidine IVP 20 mg IVP once; dilute with 10 mL 0.9% NaCl; give over 2 minutes ap3 Route: IVP; Site: right forearm; 09:30 Not Given (Duplicate Order): [id number] mg PO once rn 09:30 Not Given (Duplicate Order): mg PO once rn 09:33 Drug: Amoxicillin-Clavulanate PO 875 mg PO once Route: PO; ld1 Medication: 04:57 VIS not applicable for this client. kd3 Outcome: 08:42 Discharge ordered by . rn 09:33 Discharged to home ambulatory, ld1 09:33 Condition: stable 09:33 Discharge instructions given to patient, Instructed on discharge instructions, follow up and referral plans. medication usage, Demonstrated understanding of instructions, follow-up care, medications, Prescriptions given X 2, 09:34 Patient left the ED. ld1 Signatures: Dispatcher [employer] EDOK Nnamdi Dooley MD MD rn McGuire, Victoria 2 Haley Barker RN RN ap3 Yoon Perez RN RN ld1 Cyndi Acharya RN RN kd3 Jh Gallegos MD MD rt Nicole Valdovinos 2
--- NOTE | 2024-11-12 08:43 | EDPHYS ---
Physician Documentation [facility] Name: Suzie Mak Age: 34 yrs Sex: Female : 1990 Arrival Date: 11/12/2024 Time: 04:14 Bed 5 Private MD: ED Physician Nnamdi Dooley HPI: 11/12 04:52 This 34 yrs old Female presents to ER via Unassigned with complaints of Abdominal Pain. rt 04:52 Patient presents to the ED with intermittent epigastric pain radiating laterally to the rt right and left starting overnight. States that got worse after eating. Denies any pain currently. Denies other acute complaints, symptoms are moderate in severity, no other aggravating or elevating factors.. Historical: - Allergies: 04:55 No Known Allergies; kd3 - Immunization history:: Adult Immunizations up to date. - Infectious Disease History:: Denies. - Family history:: not pertinent. - Social history:: Smoking status: Patient reports the use of cigarette tobacco products, smokes one-half pack cigarettes per day. ROS: 04:52 Constitutional: Negative for fever, chills, and weight loss, Cardiovascular: Negative rt for chest pain, palpitations, and edema, Respiratory: Negative for shortness of breath, cough, wheezing, and pleuritic chest pain, MS/Extremity: Negative for injury and deformity, Skin: Negative for injury, rash, and discoloration, Neuro: Negative for headache, weakness, numbness, tingling, and seizure, 04:52 Abdomen/GI: Positive for abdominal pain, Negative for nausea and vomiting, Exam: 04:52 Constitutional: This is a well developed, well nourished patient who is awake, alert, rt and in no acute distress. Head/Face: Normocephalic, atraumatic. Chest/axilla: Normal chest wall appearance and motion. Nontender with no deformity. No lesions are appreciated. Cardiovascular: Regular rate and rhythm with a normal S1 and S2. No gallops, murmurs, or rubs. Normal PMI, no JVD. No pulse deficits. Respiratory: Lungs have equal breath sounds bilaterally, clear to auscultation and percussion. No rales, rhonchi or wheezes noted. No increased work of breathing, no retractions or nasal flaring. Abdomen/GI: Soft, non-tender, with normal bowel sounds. No distension or tympany. No guarding or rebound. No evidence of tenderness throughout. Skin: Warm, dry with normal turgor. Normal color with no rashes, no lesions, and no evidence of cellulitis. MS/ Extremity: Pulses equal, no cyanosis. Neurovascular intact. Full, normal range of motion. Neuro: Awake and alert, GCS 15, oriented to person, place, time, and situation. Cranial nerves II-XII grossly intact. Motor strength 5/5 in all extremities. Sensory grossly intact. Cerebellar exam normal. Normal gait. Vital Signs: 04:52 BP 130 / 69; Pulse 99; Resp 19; Temp 99.2(O); Pulse Ox 100% on R/A; Weight 52.5 kg; kd3 Height 5 ft. 3 in. ; 05:46 BP 124 / 74; Pulse 103; Resp 19; Pulse Ox 98% on R/A; kd3 06:19 BP 124 / 60; Pulse 98; Resp 18; Pulse Ox 97% on R/A; kd3 08:29 BP 122 / 73; Pulse 108; Resp 17; Pulse Ox 100% ; ap3 04:52 Body Mass Index 20.50 (52.50 kg, 160.02 cm) kd3 MDM: 04:37 Medical Screening Exam initiated rt 08:41 Differential Diagnosis Gastritis, cholecystitis, cholelithiasis, ulcer, enteritis. Data rn reviewed: vital signs, nurses notes, lab test result(s), radiologic studies, CT scan, ultrasound, and as a result, I will discharge patient. Counseling: I had a detailed discussion with the patient and/or guardian regarding the historical points, exam findings, and any diagnostic results supporting the discharge/admit diagnosis, lab results, radiology results, the need for outpatient follow up, to return to the emergency department if symptoms worsen or persist or if there are any questions or concerns that arise at home. Response to treatment: the patient's symptoms have mildly improved after treatment. Special discussion: I discussed with the patient/guardian in detail that at this point there is no indication for admission to the hospital. It is understood, however, that if the symptoms persist or worsen the patient needs to return immediately for re-evaluation. Based on the history and exam findings, there is no indication for further emergent testing or inpatient evaluation. I discussed with the patient/guardian the need to see the truck safety inspector for further evaluation of the symptoms. ED course: CT shows enteritis, patient has had this several times, recommend GI follow-up as she states other family members have stomach issues as well. I have personally reviewed all of the results, including but not limited to blood tests and imaging deemed necessary to safely discharge this patient at this time. All results given to and printed out for patient. I personally went over all the results with the patient and answered all questions. Patient will follow-up with PCP and or specialist as discussed. Return precautions given and understood.. 11/12 04:44 Order name: CBC with Diff; Complete Time: 05:42 rt 11/12 04:44 Order name: CMP; Complete Time: 05:42 rt 11/12 04:44 Order name: Lipase; Complete Time: 05:42 rt 11/12 04:44 Order name: Test, Serum; Complete Time: 05:42 rt 11/12 04:44 Order name: CT Abd/Pelvis - IV Contrast Only; Complete Time: 08:27 rt 11/12 07:05 Order name: US Abdomen Limited; Complete Time: 08:27 rn 11/12 04:44 Order name: IV Saline Lock; Complete Time: 04:58 rt 11/12 04:44 Order name: Labs collected and sent; Complete Time: 04:58 rt Administered Medications: 08:27 Drug: Famotidine IVP 20 mg IVP once; dilute with 10 mL 0.9% NaCl; give over 2 minutes ap3 Route: IVP; Site: right forearm; 09:30 Not Given (Duplicate Order): [id number] mg PO once rn 09:30 Not Given (Duplicate Order): [id number] mg PO once rn 09:33 Drug: Amoxicillin-Clavulanate PO 875 mg PO once Route: PO; ld1 Disposition Summary: 11/12/24 08:42 Discharge Ordered Notes: Location: Home rn Problem: new rn Symptoms: have improved rn Condition: Stable rn Diagnosis - Infectious gastroenteritis and colitis, unspecified rn Followup: rn - With: Private Physician - When: As needed - Reason: Recheck today's complaints, Re-evaluation by your physician Discharge Instructions: - Discharge Summary Sheet rn - Abdominal Pain, Adult rn Forms: - Medication Reconciliation Form rn - Antibiotic sports management intern - Prescription Opioid Use rn - Patient Portal Instructions rn - Leadership Thank You Letter rn Prescriptions: - Augmentin 875-125 mg Oral Tablet - take 1 tablet ORAL route every 12 hours for 10 days; 20 tablet; Refills: 0, rn Product Selection Permitted - Protonix 40 mg Oral Tablet - take 1 tablet ORAL route once daily; 30 tablet; Refills: 0, Product Selection rn Permitted Signatures: Dispatcher [employer] EDMS Nnamdi Dooley MD MD rn Prokisch, Amanda, RN RN ap3 Yoon Perez RN RN ld1 Cyndi Acharya RN RN kd3 Jh Gallegos MD MD rt Corrections: (The following items were deleted from the chart) 04:44 04:44 Abdomen Pelvis W Con+CT.RAD.BRZ ordered. EDMS EDMS
[2024-11-12] MEDS ORDERED: CIPROFLOXACIN HCL 500 MG TAB ONE (09:19)
[2024-11-12] MEDS ORDERED: metroNIDAZOLE 500 MG TABLET ONE (09:19)
[2024-11-12] MEDS ORDERED: AMOX/K CLAV 875 MG TAB ONE (09:31)
[2024-11-12 09:47] VITALS: TEMP 99.2
[2024-11-12 10:02] VITALS: BP 122/73; O2SAT 100
== END 2024-11-12 09:34 | disposition home or self-care (01) ==
LOC: ER 04:14
DX: A09 Infectious gastroenteritis and colitis, unspecified (principal); F17.210 Nicotine dependence, cigarettes, uncomplicated
CPT/HCPCS: 85025; 36415; 84703; 83690; 80053; 74177; 76705; 96374; 99284; Q9967